=== PATIENT | female | born 1985 | race Caucasian/White ===

== ENCOUNTER 2020-10-23 02:18 | Emergency (ER) | payer OTHER, SELFPAY ==
[2020-10-23 02:28] VITALS: PULSE 79; RESP 16; TEMP 36.6; O2SAT 100; BMI 27.5
[2020-10-23 03:08] LABS: MANUAL DIFF FLAG NO
--- NOTE | 2020-10-23 03:23 | ED_ITS ---
HPI - Abdominal Pain General Chief Complaint: Abdominal Pain Stated Complaint: vaginal bleeding Time Seen by Provider: 10/23/20 03:18 History of Present Illness HPI narrative: Patient is a 35-year-old female presented with having lower abdominal cramping. Breakthrough bleeding. Patient's last menstrual period was middle of September. complaining of increased bleeding tonight. With 1 clot noted. Patient had some dizziness after bleeding episode. Never had syncope. No chest pain or shortness breath no coughing or congestion or upper respiratory symptoms. No flank pain. Patient from home. She is sexually active. One partner. No vaginal discharge otherwise. Related Data Allergies Allergy/AdvReac Type Severity Reaction Status Date / Time drospirenone [From JESSE (28)] Allergy Unknown UNKNOWN Unverified 08/04/20 18:55 ethinyl estradiol Allergy Unknown UNKNOWN Unverified 08/04/20 18:55 [From JESSE (28)] penicillin V Allergy Unknown Verified 04/09/17 00:00 Penicillins [PENICILLINS] Allergy Unknown HIVES Unverified 08/04/20 18:55 Pt states no known allergy to Allergy Unknown Uncoded 04/09/17 00:00 Review of Systems Review of Systems Constitutional: No Weight loss, No Fever, No Chills, No Night Sweats, No Fatigue, No Malaise ENT/Mouth: No Hearing loss, No Ear Pain, No Nasal Congestion, No Sinus Pain, No Hoarseness, No sore throat, No Rhinorrhea, No Swallowing Difficulty Eyes: No Eye Pain, No Swelling, No Redness, No Foreign Body, No Discharge, No Vision Changes Cardiovascular: No Chest Pain, No SOB, No Dyspnea on Exertion, No Orthopnea, No Edema, No Palpitations Respiratory: No Cough, No Sputum, No Wheezing, No Smoke Exposure, No Dyspnea Gastrointestinal: No Nausea, No Vomiting, No Diarrhea, No Constipation, No abdominal Pain, No Hematochezia, No Melena Genitourinary: positive irregular bleeding, No Dysuria, No Urinary Frequency, No Hematuria, No Urinary Incontinence, No Urgency, No Flank Pain, No Urinary Flow Changes, No Hesitancy Musculoskeletal: No joint pain, No Myalgias, No Joint Swelling Skin: No Skin Lesions, No rash Neuro: No Weakness, No Numbness, No Paresthesias, No Loss of Consciousness, No Dizziness, No Headache Psych: No Anxiety/Panic, No Depression, No SI/HI/AH/VH, No Social Issues, Heme/Lymph: No Bruising, No Bleeding,No Lymphadenopathy Endocrine: No Polyuria, No Polydipsia, No Temperature Intolerance Physical Exam Vital Signs: Vital Signs: Last Vital Signs Temp 97.8 F 10/23/20 02:28 Pulse 79 10/23/20 02:28 Resp 16 10/23/20 02:28 Pulse Ox 100 10/23/20 02:28 Body Mass Index 27.5 Appearance: Alert. Oriented X3. No acute distress. Eyes: Pupils equal, round and reactive to light. ENT: Pharynx normal. Neck: Normal inspection. Neck supple. No lymph nodes noted. No crepitus CVS: Normal heart rate and rhythm. Pulses normal. Normal S1 and S2 Respiratory: No respiratory distress. Breath sounds normal. No Wheezing. No rales Abdomen: Soft and nontender. No rigidity. No distention. good BS x4 Skin: Skin warm and dry. Normal skin color. Normal skin turgor. Extremities: No lower extremity edema. Neurovascular intact to all extremities. No Lacerations. No Rash Neuro: Oriented X 3. No motor deficit. No sensory deficit. Moving all exte rmities. No slurred speech MDM - Abdominal Pain MDM Narrative Medical decision making narrative: Patient's test is negative unlikely tap ectopic. Positive vaginal bleeding. Will need follow-up on an outpatient basis. Patient is not anemic. Hemoglobin is baseline. Will discharge patient home. Medical Records Attestation: I reviewed the patient's medical records. Lab Data Attestation: I reviewed the patient's lab results. Result diagrams: 10/23/20 02:58 10/23/20 02:58 Labs: Lab Results 10/23/20 10/23/20 10/23/20 Range/Units 02:58 02:58 02:58 WBC 6.2 (4.8-10.8) X10*3/uL RBC 4.06 L (4.20-5.50) X10*6/uL Hgb 13.1 (12.0-16.0) g/dl Hct 39.0 (37-47) % MCV 96.1 (80-98) fL MCH 32.3 (27.0-33.0) pg MCHC 33.6 (31.0-35.0) g/dl RDW 12.6 (11.0-16.0) % Plt Count 226 (160-400) X10*3/uL MPV 11.1 (9.4-12.3) fL Immature Gran % (Auto) 0.2 (0.0-0.4) % Neut % (Auto) 43.5 L (45-73) % Lymph % (Auto) 43.8 H (20-40) % [place] % (Auto) 9.1 (2-11) % Eos % (Auto) 2.8 (0-4) % Baso % (Auto) 0.6 (0-2) % Lymph # (Auto) 2.7 (1.2-4.9) X10*3/uL [place] # (Auto) 0.6 (0.1-1.2) X10*3/uL Eos # (Auto) 0.2 (0.0-0.4) X10*3/uL Baso # (Auto) 0.0 (0.0-0.2) X10*3/uL Abs Immat Gran (auto) 0.01 (0.00-0.03) X10*3/uL Absolute Neuts (auto) 2.7 (2.0-8.3) X10*3/uL Absolute Nucleated RBC 0.000 (0.0-0.012) X10*3/uL Nucleated RBC % (auto) 0.0 (0.0-0.2) /100WBC Sodium 139 (135-145) mmol/L Potassium 3.6 (3.3-5.1) mmol/l Chloride 105 (96-108) mmol/L Carbon Dioxide 24 (22-29) mmol/L Anion Gap 14 (12-20) BUN 10 (9-16) mg/dL Creatinine 0.88 (0.5-1.4) mg/dL Estim Creat Clear Calc 78.3 Estimated GFR > 60 Random Glucose 86 (60-115) mg/dL Calcium 8.4 (8.4-10.2) mg/dL Urine Color Urine Appearance Urine pH (5.0-8.0) Ur Specific [place] (1.005-1.025) Urine Protein (NEG-TRACE) MG/DL Urine Glucose (UA) (NEG) MG/DL Urine Ketones (NEG) MG/DL Urine Blood (NEG) Urine Nitrite (NEG) Ur Leukocyte Esterase (NEG) Urine RBC (0) /HPF Urine WBC (0-4) /HPF Ur Squamous Epith Cells /LPF Urine Bacteria /LPF Urine Mucus /LPF Urine Test NEGATIVE (NEGATIVE) 10/23/20 Range/Units 02:58 WBC (4.8-10.8) X10*3/uL RBC (4.20-5.50) X10*6/uL Hgb (12.0-16.0) g/dl Hct (37-47) % MCV (80-98) fL MCH (27.0-33.0) pg MCHC (31.0-35.0) g/dl RDW (11.0-16.0) % Plt Count (160-400) X10*3/uL MPV (9.4-12.3) fL Immature Gran % (Auto) (0.0-0.4) % Neut % (Auto) (45-73) % Lymph % (Auto) (20-40) % [place] % (Auto) (2-11) % Eos % (Auto) (0-4) % Baso % (Auto) (0-2) % Lymph # (Auto) (1.2-4.9) X10*3/uL [place] # (Auto) (0.1-1.2) X10*3/uL Eos # (Auto) (0.0-0.4) X10*3/uL Baso # (Auto) (0.0-0.2) X10*3/uL Abs Immat Gran (auto) (0.00-0.03) X10*3/uL Absolute Neuts (auto) (2.0-8.3) X10*3/uL Absolute Nucleated RBC (0.0-0.012) X10*3/uL Nucleated RBC % (auto) (0.0-0.2) /100WBC Sodium (135-145) mmol/L Potassium (3.3-5.1) mmol/l Chloride (96-108) mmol/L Carbon Dioxide (22-29) mmol/L Anion Gap (12-20) BUN (9-16) mg/dL Creatinine (0.5-1.4) mg/dL Estim Creat Clear Calc Estimated GFR Random Glucose (60-115) mg/dL Calcium (8.4-10.2) mg/dL Urine Color DARK YELLOW Urine Appearance CLEAR Urine pH 5.5 (5.0-8.0) Ur Specific [place] >= 1.030 H (1.005-1.025) Urine Protein 2+ H (NEG-TRACE) MG/DL Urine Glucose (UA) NEG (NEG) MG/DL Urine Ketones 5 (NEG) MG/DL Urine Blood 3+ H (NEG) Urine Nitrite NEG (NEG) Ur Leukocyte Esterase NEG (NEG) Urine RBC TNTC H (0) /HPF Urine WBC 0 (0-4) /HPF Ur Squamous Epith Cells TRACE /LPF Urine Bacteria TRACE /LPF Urine Mucus 1+ /LPF Urine Test (NEGATIVE) Discharge Plan Discharge Clinical Impression: Abnormal vaginal bleeding Patient Disposition: Home, Self-Care Instructions: Dysfunctional Uterine Bleeding (ED) Referrals: Physician,Unknown [Primary Care Provider] - 2 days ( Please follow-up with your OBGYN in 1-2 days.) [facility] Past Medical History [facility] Narrative: history of migraine Social History Social History Advance Directives: No
[2020-10-23 03:29] LABS: Basophils Percent Auto 0.6 % (0-2); Eosinophils Absolute Auto 0.2 X10*3/uL (0.0-0.4); Eosinophils Percent Auto 2.8 % (0-4); Hemoglobin 13.1 g/dl (12.0-16.0); Imm Gran Abs Auto 0.01 X10*3/uL (0.00-0.03); Imm Gran Pct Auto 0.2 % (0.0-0.4); Lymphocytes Absolute Auto 2.7 X10*3/uL (1.2-4.9); Lymphocytes Percent Auto 43.8 % (20-40); Mean Corpuscular HGB Conc 33.6 g/dl (31.0-35.0); Mean Corpuscular Hemoglobin 32.3 pg (27.0-33.0); Mean Corpuscular Volume 96.1 fL (80-98); Mean Platelet Volume 11.1 fL (9.4-12.3); Monocytes Absolute Auto 0.6 X10*3/uL (0.1-1.2); Monocytes Percent Auto 9.1 % (2-11); Neutrophils Absolute Auto 2.7 X10*3/uL (2.0-8.3); Neutrophils Percent Auto 43.5 % (45-73); Platelet Count 226 X10*3/uL (160-400); Red Blood Count 4.06 X10*6/uL (4.20-5.50); Red Cell Distribution Width 12.6 % (11.0-16.0); White Blood Count 6.2 X10*3/uL (4.8-10.8)
[2020-10-23] MEDS: 0.9 % Sodium Chloride 1,000 ML 999 ML IVCONT (03:30)
[2020-10-23 03:33] LABS: Anion Gap 14 (12-20); Blood Urea Nitrogen 10 mg/dL (9-16); Calcium 8.4 mg/dL (8.4-10.2); Carbon Dioxide 24 mmol/L (22-29); Chloride 105 mmol/L (96-108); Creatinine Clr Calc Pharmacy 78.3; Estimated Glomerular Filt Rate > 60; Glucose Random 86 mg/dL (60-115); Potassium 3.6 mmol/l (3.3-5.1); Sodium 139 mmol/L (135-145)
[2020-10-23 03:57] LABS: Glucose Urine UA NEG (NEG); PH 5.5 (5.0-8.0); Specific Gravity - Urine >= 1.030 (1.005-1.025); Urine Blood 3+ (NEG); Urine Ketones 5 MG/DL (NEG); Urine Protein 2+ MG/DL (NEG-TRACE)
[2020-10-23 04:00] VITALS: BP 114/67; PULSE 75; RESP 16; O2SAT 98
[2020-10-23 04:01] LABS: Appearance Urine CLEAR; Color Urine DARK YELLOW
[2020-10-23 04:02] LABS: Leukocyte Esterase Urine NEG (NEG); Nitrite Urine NEG (NEG)
[2020-10-23 04:10] LABS: Bacteria Urine TRACE /LPF; Mucus Urine 1+ /LPF; RBC Urine TNTC /HPF (0); Squamous Epithelial Cell Urine TRACE /LPF; WBC Urine 0 /HPF (0-4)
[2020-10-23 04:11] LABS: UPreg QC Valid YES; Urine Pregnancy NEGATIVE (NEGATIVE)
[2020-10-23] MEDS: Ketorolac Tromethamine 15 MG/ML VIAL IV (04:18)
[2020-10-23 04:30] VITALS: BP 118/72; PULSE 74; RESP 16; O2SAT 98
== END 2020-10-23 04:48 | disposition home or self-care (01) ==
PROVIDERS: Emergency Provider Emergency Medicine Emergency Medical Services
DX: N93.8 Other specified abnormal uterine and vaginal bleeding (principal)
CPT/HCPCS: 36415; 80048; 81001; 81003; 81025; 85025; 96361; 96374; 99283; 99284; J1885

== ENCOUNTER 2020-12-03 16:10 | Emergency (ER) | payer OTHER, SELFPAY ==
[2020-12-03 17:16] VITALS: BP 101/70; PULSE 76; RESP 18; TEMP 37; O2SAT 96; BMI 28.7
[2020-12-03 18:00] VITALS: BP 104/68; PULSE 60; RESP 16; TEMP 37; O2SAT 100
--- NOTE | 2020-12-03 18:36 | PC.NURSE ---
patient a&ox3, denies pain/discomfort, patient speaking in full sentences, no neuro deficites noted, pt currently talking on cell phone, vss, will continue to monitor.
--- NOTE | 2020-12-03 18:41 | ED.NEUROSD ---
HPI - Neuro Symptoms/Deficit General Chief Complaint: Neuro Symptoms/Deficit Stated Complaint: left sided face numbness,neck pain Time Seen by Provider: 12/03/20 18:14 Source: patient Mode of arrival: ambulatory Limitations: no limitations History of Present Illness HPI Narrative: Patient presents to ED for left-sided facial numbness, migraine, and slight vertigo. Patient denies any weakness of extremities, paralysis, facial droop, slurred speech, or loss of vision. Patient states history of migraine but is not on any cocktail except monthly injections of a migraine exacerbation. Related Data Previous Rx's Medication Instructions Recorded [id number]-[id number] 1 cap PO Q6H PRN 4 Days #18 cap 12/03/20 [Fioricet] naproxen 500 mg PO BID PRN #20 tab 12/03/20 Allergies Allergy/AdvReac Type Severity Reaction Status Date / Time drospirenone [From JESSE (28)] Allergy Unknown UNKNOWN Verified 12/03/20 17:15 ethinyl estradiol Allergy Unknown UNKNOWN Verified 12/03/20 17:15 [From JESSE (28)] Penicillins [PENICILLINS] Allergy Unknown HIVES Verified 12/03/20 17:15 metronidazole Allergy Chills Verified 12/03/20 17:15 Review of Systems Review of Systems: Yes all other systems are reviewed and are negative Constitutional: Constitutional: Reports as per HPI, Reports no additional constitutional complaints and Reports headache(s) Eyes: Eyes: Reports as per HPI and Reports no additional eye complaints ENT: Reports system reviewed and no additional complaints, except as documented, Reports as per HPI, Reports dizziness (History of vertigo) and Reports headache(s) Cardiovascular: Cardiovascular: Reports as per HPI and Reports no additional cardiovascular complaints Respiratory: Respiratory: Reports as per HPI and Reports no additional respiratory complaints Gastrointestinal: Gastrointestinal: Reports as per HPI and Reports no additional gastrointestinal complaints Genitourinary: Genitourinary: Reports no additional female genitourinary complaints and Reports as per HPI Musculoskeletal: Musculoskeletal: Reports no additional musculoskeletal complaints and Reports as per HPI Neurologic: Reports system reviewed and no additional complaints, except as documented, Reports as per HPI, Reports dizziness (History of vertigo) and Reports headache(s) Comments: Left-sided facial numbness Psychiatric: Psychiatric: Reports no additional psychiatric complaints and Reports as per HPI PMFSH Past Medical History Medical History Migraines Vertigo Social History Social History Alcohol intake: never Smoking Status: Never smoker Use of substances other than those prescribed or required for medical reasons: Yes Substance Use Type: Marijuana Substance Use Frequency: Occasionally Advance Directives: No Advance Directives Information Provided: Yes Physical Exam Vital Signs: Vital Signs: Last Vital Signs Temp 98.3 F 12/03/20 19:51 Pulse 68 12/03/20 19:51 Resp 17 12/03/20 19:51 BP 108/68 12/03/20 19:51 Pulse Ox 100 12/03/20 19:51 Body Mass Index 28.7 Const: General: cooperative, healthy appearing, comfortable, no acute distress, well developed, alert and awake Orientation/consciousness: patient oriented x3 HENMT: Head: Yes normal to inspection, Yes No palpable skull fracture present, Yes normocephalic, Yes atraumatic, No abrasion, No Rincon's sign, No contusion, No cranial bruits, No hematoma, No laceration, No occipital foramen tenderness, No palpable skull fracture, No raccoon eyes, No scalp lesion, No scalp tenderness, No Temporal artery tenderness present and No periorbital ecchymosis Eyes: General: appearance normal, both eyes and all related structures Neck: Neck: Yes normal visual inspection, Yes full ROM, Yes no lymphadenopathy, Yes no meningeal signs, Yes trachea midline, Yes supple and No tender Chest: Chest palpation & inspection: normal inspection of the chest and normal palpation of entire chest wall Breast/axilla inspection: normal inspection of the breasts Resp: Effort & Inspection: normal respiratory effort and able to speak in complete sentences Auscultation: clear to auscultation bilaterally Cardio: Jugular venous distension: no JVD Heart sounds: S1 normal heart sound present and S2 normal heart sound present GI: Inspection: Yes normal to inspection and No abdominal wall ecchymosis Palpation (GI): Soft to palpation, not firm, nontender, no guarding and not rigid : General: No CVA tenderness and Yes no CVA tenderness Back/Spine/Pelvis: Back: no CVA tenderness, No CVA tenderness and No back tenderness Skin: General skin exam: no rashes or lesions noted and elasticity normal Neuro: Other: Negative facial droop. Negative pronator drift. Negative slurred speech. All extremities motor strength equal and 5+. Normal gait. Negative Romberg. Nfclff-sw-tjzf and rapid hand movements intact. negative neuro deficit. General: patient oriented x3, gait normal, no meningeal signs and CN's II-XI intact bilaterally Cranial nerves: Yes CN's II-XII intact bilaterally Extrem: General: Yes normal to inspection and Yes full ROM Psych: Appearance: grossly normal, well kempt and not disheveled Course Course Course Narrative: Most likely patient is having complicated migraine exacerbation. Due to patient stating having headache for a week was sent for head CT scan to rule out abnormal mass or bleed although very unlikely. Not suspecting stroke. CT scan negative will order Toradol. Presently Reglan, Fioricet, normal saline ordered. Patient also have labs EKG. Magnesium will be sent. Reevaluation(s) Reevaluation #1: Head CT came back negative for stroke. Troponin is negative after having symptoms for 1 weeks. EKG is normal. Electrolytes are normal. Patient feels better after given migraine cocktail. Most likely patient has migraine exacerbation. Negative for any neuro deficits. Not suspecting cardiac etiology. UTI negative for infection. Time: 21:29 MDM - Neuro Symptoms/Deficit MDM Narrative Medical decision making narrative: Migraine exacerbation. Lab Data Result diagrams: 12/03/20 19:34 12/03/20 19:34 Labs: Lab Results 12/03/20 12/03/20 12/03/20 Range/Units 19:34 19:34 19:34 WBC 5.3 (4.8-10.8) X10*3/uL RBC 4.08 L (4.20-5.50) X10*6/uL Hgb 13.0 (12.0-16.0) g/dl Hct 39.1 (37-47) % MCV 95.8 (80-98) fL MCH 31.9 (27.0-33.0) pg MCHC 33.2 (31.0-35.0) g/dl RDW 12.5 (11.0-16.0) % Plt Count 222 (160-400) X10*3/uL MPV 10.2 (9.4-12.3) fL Immature Gran % (Auto) 0.2 (0.0-0.4) % Neut % (Auto) 43.8 L (45-73) % Lymph % (Auto) 45.3 H (20-40) % [place] % (Auto) 7.6 (2-11) % Eos % (Auto) 2.5 (0-4) % Baso % (Auto) 0.6 (0-2) % Lymph # (Auto) 2.4 (1.2-4.9) X10*3/uL [place] # (Auto) 0.4 (0.1-1.2) X10*3/uL Eos # (Auto) 0.1 (0.0-0.4) X10*3/uL Baso # (Auto) 0.0 (0.0-0.2) X10*3/uL Abs Immat Gran (auto) 0.01 (0.00-0.03) X10*3/uL Absolute Neuts (auto) 2.3 (2.0-8.3) X10*3/uL Absolute Nucleated RBC 0.000 (0.0-0.012) X10*3/uL Nucleated RBC % (auto) 0.0 (0.0-0.2) /100WBC PT 12.8 (10.8-13.0) SEC INR 1.1 (0.9-1.1) APTT 36.2 (24.1-38.0) SEC Sodium 139 (135-145) mmol/L Potassium 4.0 (3.3-5.1) mmol/l Chloride 105 (96-108) mmol/L Carbon Dioxide 25 (22-29) mmol/L Anion Gap 13 (12-20) BUN 12 (9-16) mg/dL Creatinine 0.91 (0.5-1.4) mg/dL Estim Creat Clear Calc 77.4 Estimated GFR > 60 Random Glucose 82 (60-115) mg/dL Calcium 8.6 (8.4-10.2) mg/dL Magnesium 2.1 (1.6-2.6) mg/dL Total Bilirubin 0.3 (0.0-1.0) mg/dL AST 12 (5-31) U/L ALT 9 (0-31) U/L Alkaline Phosphatase 33 L (39-117) U/L Troponin I High Sens (<3.5-17.0) ng/L Total Protein 6.9 (6.5-8.0) g/dL Albumin 4.2 (3.5-5.0) g/dL Urine Color Urine Appearance Urine pH (5.0-8.0) Ur Specific [place] (1.005-1.025) Urine Protein (NEG-TRACE) MG/DL Urine Glucose (UA) (NEG) MG/DL Urine Ketones (NEG) MG/DL Urine Blood (NEG) Urine Nitrite (NEG) Ur Leukocyte Esterase (NEG) Urine RBC (0) /HPF Urine WBC (0-4) /HPF Ur Squamous Epith Cells /LPF Urine Bacteria /LPF Urine Test (NEGATIVE) 12/03/20 12/03/20 Range/Units 19:35 19:35 WBC (4.8-10.8) X10*3/uL RBC (4.20-5.50) X10*6/uL Hgb (12.0-16.0) g/dl Hct (37-47) % MCV (80-98) fL MCH (27.0-33.0) pg MCHC (31.0-35.0) g/dl RDW (11.0-16.0) % Plt Count (160-400) X10*3/uL MPV (9.4-12.3) fL Immature Gran % (Auto) (0.0-0.4) % Neut % (Auto) (45-73) % Lymph % (Auto) (20-40) % [place] % (Auto) (2-11) % Eos % (Auto) (0-4) % Baso % (Auto) (0-2) % Lymph # (Auto) (1.2-4.9) X10*3/uL [place] # (Auto) (0.1-1.2) X10*3/uL Eos # (Auto) (0.0-0.4) X10*3/uL Baso # (Auto) (0.0-0.2) X10*3/uL Abs Immat Gran (auto) (0.00-0.03) X10*3/uL Absolute Neuts (auto) (2.0-8.3) X10*3/uL Absolute Nucleated RBC (0.0-0.012) X10*3/uL Nucleated RBC % (auto) (0.0-0.2) /100WBC PT (10.8-13.0) SEC INR (0.9-1.1) APTT (24.1-38.0) SEC Sodium (135-145) mmol/L Potassium (3.3-5.1) mmol/l Chloride (96-108) mmol/L Carbon Dioxide (22-29) mmol/L Anion Gap (12-20) BUN (9-16) mg/dL Creatinine (0.5-1.4) mg/dL Estim Creat Clear Calc Estimated GFR Random Glucose (60-115) mg/dL Calcium (8.4-10.2) mg/dL Magnesium (1.6-2.6) mg/dL Total Bilirubin (0.0-1.0) mg/dL AST (5-31) U/L ALT (0-31) U/L Alkaline Phosphatase (39-117) U/L Troponin I High Sens < 3.5 (<3.5-17.0) ng/L Total Protein (6.5-8.0) g/dL Albumin (3.5-5.0) g/dL Urine Color YELLOW Urine Appearance CLEAR Urine pH 7.0 (5.0-8.0) Ur Specific [place] 1.015 (1.005-1.025) Urine Protein NEG (NEG-TRACE) MG/DL Urine Glucose (UA) 100 H (NEG) MG/DL Urine Ketones NEG (NEG) MG/DL Urine Blood 1+ H (NEG) Urine Nitrite NEG (NEG) Ur Leukocyte Esterase NEG (NEG) Urine RBC 0-2 (0) /HPF Urine WBC 0-2 (0-4) /HPF Ur Squamous Epith Cells TRACE /LPF Urine Bacteria NONE /LPF Urine Test NEGATIVE (NEGATIVE) ECG Data Interpretation: Sinus bradycardia. Ventricular rate 52. WV interval 150 QRS 74. QTC 394. Negative STEMI Discharge Plan Discharge Clinical Impression: Migraine Patient Disposition: Home, Self-Care Instructions: Migraine Headache (ED) Additional Instructions: Return to the ED immediately no slurred speech, worsening headache, loss of vision, paralysis of extremities, weakness, chest pain, or shortness of breath. Please follow-up with the PCP Prescriptions: New naproxen 500 mg tablet 500 mg PO BID PRN (Reason: pain) Qty: 20 RF: 0 icwqkcyskz-gpedwiqqhhqvl-oboq [Fioricet] 50-300-40 mg capsule 1 cap PO Q6H PRN (Reason: migraine headache) 4 Days Qty: 18 RF: 0 Interventions: ED Discharge Assessment Last Done: 12/03/20 21:59 Discharge Date/Time: 12/03/20 22:01 Print Language: Micronesian
--- NOTE | 2020-12-03 19:03 | CT_ITS ---
EXAMINATION: CT HEAD WITHOUT CONTRAST CLINICAL INFORMATION: Left-sided headache with facial numbness COMPARISON: Report from MRI 06/20/2015 TECHNIQUE: Contiguous axial imaging was performed from the skull base to vertex without intravenous administration of contrast. This CT examination was performed using dose optimization techniques as appropriate, variously including the following: *Automated exposure control *Adjustment of mA and/or kV according to patient size (this includes techniques or standardized protocols for targeted exams where dose is matched to indication/reason for exam; i.e. extremities or head) *Use of iterative reconstruction technique DLP: 696 mGy-cm FINDINGS: There is no evidence of acute intracranial hemorrhage or territorial infarction. No abnormal mass effect or midline shift is seen. Mendes to white matter differentiation is well preserved. No extra-axial fluid collections are identified. The ventricles are normal in size. There is no abnormal attenuation within the brain parenchyma. The osseous structures and soft tissues are normal. The mastoid air cells and visualized portions of the paranasal sinuses are well aerated. CT/CT head/brain wo con IMPRESSION: No acute intracranial pathology.
--- NOTE | 2020-12-03 19:11 | ECG_ITS ---
Test Reason : NUMBNESS Blood Pressure : / mmHG Vent. Rate : 052 BPM Atrial Rate : 052 BPM P-R Int : 150 ms QRS Dur : 074 ms QT Int : 424 ms P-R-T Axes : 067 008 024 degrees QTc Int : 394 ms Sinus bradycardia Possible Left atrial enlargement Borderline ECG No previous ECGs available Referred By: Harshil Tellez Electronically Signed By:TAYLOR JUSTICE MD
[2020-12-03 19:42] LABS: MANUAL DIFF FLAG NO
[2020-12-03 19:45] LABS: Basophils Percent Auto 0.6 % (0-2); Eosinophils Absolute Auto 0.1 X10*3/uL (0.0-0.4); Eosinophils Percent Auto 2.5 % (0-4); Hematocrit 39.1 % (37-47); Imm Gran Abs Auto 0.01 X10*3/uL (0.00-0.03); Imm Gran Pct Auto 0.2 % (0.0-0.4); Lymphocytes Absolute Auto 2.4 X10*3/uL (1.2-4.9); Lymphocytes Percent Auto 45.3 % (20-40); Mean Corpuscular HGB Conc 33.2 g/dl (31.0-35.0); Mean Corpuscular Hemoglobin 31.9 pg (27.0-33.0); Mean Corpuscular Volume 95.8 fL (80-98); Mean Platelet Volume 10.2 fL (9.4-12.3); Monocytes Absolute Auto 0.4 X10*3/uL (0.1-1.2); Monocytes Percent Auto 7.6 % (2-11); Neutrophils Absolute Auto 2.3 X10*3/uL (2.0-8.3); Neutrophils Percent Auto 43.8 % (45-73); Platelet Count 222 X10*3/uL (160-400); Red Blood Count 4.08 X10*6/uL (4.20-5.50); Red Cell Distribution Width 12.5 % (11.0-16.0); White Blood Count 5.3 X10*3/uL (4.8-10.8)
[2020-12-03 19:48] LABS: Glucose Urine UA 100 MG/DL (NEG); Leukocyte Esterase Urine NEG (NEG); Nitrite Urine NEG (NEG); Specific Gravity - Urine 1.015 (1.005-1.025); Urine Blood 1+ (NEG); Urine Ketones NEG (NEG); Urine Protein NEG (NEG-TRACE)
[2020-12-03 19:51] VITALS: BP 108/68; PULSE 68; RESP 17; TEMP 36.8; O2SAT 100
--- NOTE | 2020-12-03 19:52 | PC.NURSE ---
patient a&ox3, iv inserted, labs drawn, urine obtained, ekg performed, pt ct scan performed, pt to be medicated per order, vss, will continue to monitor.
[2020-12-03 19:53] LABS: Appearance Urine CLEAR; Color Urine YELLOW
[2020-12-03 19:54] LABS: UPreg QC Valid YES; Urine Pregnancy NEGATIVE (NEGATIVE)
[2020-12-03 19:56] LABS: INTERNATIONAL NORM RATIO 1.1 (0.9-1.1); Prothrombin Time 12.8 SEC (10.8-13.0)
[2020-12-03 19:58] LABS: Partial Thromboplastin Time 36.2 SEC (24.1-38.0)
[2020-12-03 20:02] LABS: RBC Urine 0-2 /HPF (0); Squamous Epithelial Cell Urine TRACE /LPF; WBC Urine 0-2 /HPF (0-4)
[2020-12-03] MEDS: 0.9 % Sodium Chloride 1,000 ML 999 ML IV (20:05)
[2020-12-03] MEDS: Metoclopramide HCl 10 MG/2 ML VIAL IVPUSH (20:17)
[2020-12-03] MEDS: Butalb/Acetamin/Caff 50/325/40 TABLET 1 TAB PO (20:17)
[2020-12-03 20:19] LABS: Alanine Aminotransferase 9 U/L (0-31); Albumin Level 4.2 g/dL (3.5-5.0); Alkaline Phosphatase 33 U/L (39-117); Anion Gap 13 (12-20); Aspartate Amino Transferase 12 U/L (5-31); Bilirubin Total 0.3 mg/dL (0.0-1.0); Blood Urea Nitrogen 12 mg/dL (9-16); Calcium 8.6 mg/dL (8.4-10.2); Carbon Dioxide 25 mmol/L (22-29); Chloride 105 mmol/L (96-108); Creatinine Clr Calc Pharmacy 77.4; Estimated Glomerular Filt Rate > 60; Glucose Random 82 mg/dL (60-115); Magnesium 2.1 mg/dL (1.6-2.6); Sodium 139 mmol/L (135-145); Total Protein 6.9 g/dL (6.5-8.0)
[2020-12-03 20:24] LABS: Troponin-I High Sensitivity < 3.5 ng/L (<3.5-17.0)
[2020-12-03] MEDS: Ketorolac Tromethamine 30 MG/ML VIAL IVPUSH (20:55)
[2020-12-03] MEDS: dexAMETHasone sod phosphate 4 MG/ML VIAL 6 MG IVPUSH (20:55)
--- NOTE | 2020-12-03 20:55 | PC.NURSE ---
patient medicated per order
== END 2020-12-03 22:01 | disposition home or self-care (01) ==
PROVIDERS: Physician Assistant; Emergency Provider Emergency Medicine
DX: G43.909 Migraine, unspecified, not intractable, without status migrainosus (principal); M54.2 Cervicalgia; F12.90 Cannabis use, unspecified, uncomplicated; Z79.899 Other long term (current) drug therapy
CPT/HCPCS: 36415; 70450; 80053; 81001; 81025; 83735; 84484; 85025; 85610; 85730; 93005; 96361; 96374; 96375; 99284; J1100; J1885; J2765

== ENCOUNTER 2021-01-04 15:59 | Emergency (ER) | payer OTHER, SELFPAY ==
[2021-01-04 16:04] VITALS: BP 117/65; PULSE 65; RESP 16; TEMP 36.6; O2SAT 100
[2021-01-04 19:54] VITALS: BP 115/47; PULSE 59; RESP 18; TEMP 36.9; O2SAT 98; BMI 26.9
[2021-01-04 23:34] VITALS: BP 112/57; PULSE 62; RESP 16; O2SAT 98
--- NOTE | 2021-01-05 01:57 | ED.GENADULT ---
HPI - General Adult General Chief complaint: Allergic Reaction Stated complaint: ?allergic reaction Time Seen by Provider: 01/05/21 01:32 Source: patient Mode of arrival: ambulatory Limitations: no limitations History of Present Illness HPI narrative: 35-year-old female who presents emergency department for evaluation of possible allergic reaction. The patient has a history of moderate to severe vaginal bleeding with periods that last 8-9 days. The patient states she has been on multiple different control pills without controlling the symptoms. She was started on norethindrone 3 or 4 days prior. She states she has taken approximately 3 doses. She states that yesterday morning she woke up with swollen eyes, facial swelling, tightness in her throat and itchiness on her anterior chest wall. She states that the symptoms persisted so she came to the emergency department for evaluation. She denied difficulty swallowing, lightheadedness, dizziness, nausea, vomiting, abdominal pain, shortness of breath or dyspnea on exertion. The patient does have allergies to penicillin which caused hives, JESSE contro pills l which caused pancreatitis and metronidazole was caused shaking chills. Related Data Previous Rx's Medication Instructions Recorded xmlvppocno-gkkqgfodlkfpn-oebb 1 cap PO Q6H PRN 4 Days #18 cap 12/03/20 [Fioricet] naproxen 500 mg PO BID PRN #20 tab 12/03/20 prednisone 40 mg PO DAILY 5 Days #10 tab 01/05/21 Allergies Allergy/AdvReac Type Severity Reaction Status Date / Time drospirenone [From JESSE (28)] Allergy Unknown UNKNOWN Verified 12/03/20 17:15 ethinyl estradiol Allergy Unknown UNKNOWN Verified 12/03/20 17:15 [From JESSE (28)] Penicillins [PENICILLINS] Allergy Unknown HIVES Verified 12/03/20 17:15 metronidazole Allergy Chills Verified 12/03/20 17:15 Review of Systems Review of Systems: Yes all other systems are reviewed and are negative Neurologic: Reports Abnormal speech present [facility] Past Medical History [facility] Narrative: The patient has a history of depression, anxiety, IBS and migraines. 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 She denies tobacco and alcohol use. She states that she uses marijuana to control her anxiety and she smokes marijuana daily. She denies other drug use. Medical History Migraines Vertigo Social History Social History Alcohol intake: never Smoking Status: Never smoker Substance Use Type: Marijuana Advance Directives: No Physical Exam Vital Signs: Vital Signs: Last Vital Signs Temp 98.5 F 01/04/21 19:54 Pulse 62 01/04/21 23:34 Resp 16 01/04/21 23:34 BP 112/57 L 01/04/21 23:34 Pulse Ox 98 01/04/21 23:34 Body Mass Index 26.9 Const: General: cooperative and healthy appearing Orientation/consciousness: oriented to person and oriented to place Limitations: no limitations HENMT: Head: Yes normal to inspection, Yes normocephalic and Yes atraumatic Ears: external ears normal General nose exam: Normal external nose present Face and sinus: Yes normal facial exam Mouth: Normal oral and palatal mucosa present Throat: Yes posterior oropharynx normal Eyes: Periorbital: periorbital findings normal Eyelids: Yes eyelids normal Conjunctivae: conjunctivae normal Sclerae: sclerae normal Corneas: corneas normal Pupils: Equal, round and reactive pupils present Direct Ophthalmoscopy: normal light reflex Neck: Neck: Yes full ROM, Yes no lymphadenopathy, Yes no meningeal signs, Yes trachea midline and Yes supple Chest: Chest palpation & inspection: normal inspection of the chest and normal palpation of entire chest wall Resp: Effort & Inspection: normal respiratory effort and able to speak in complete sentences Auscultation: clear to auscultation bilaterally Cardio: Rate: regular rate Rhythm: regular rhythm Heart sounds: S1 normal heart sound present, S2 normal heart sound present and no murmurs GI: Inspection: Yes normal to inspection Palpation (GI): Soft to palpation, nontender, no guarding, not rigid and No hepatosplenomegaly present : General: Yes no CVA tenderness Back/Spine/Pelvis: Back: no CVA tenderness Cervical Spine: normal cervical lordosis Thoracic/Lumbar Spine: thoracic and lumbar spine normal to inspection Skin: Lesions: no lesions Rashes: no rashes Wounds: no wounds Neuro: General: oriented to person, oriented to place and no meningeal signs Cranial nerves: Yes CN's II-XII intact bilaterally and Yes Equal, round and reactive pupils present Cognition (Neuro): normal cognition Speech: Abnormal speech present Motor exam (neuro): 5/5 motor strength present throughout Extrem: General: Yes normal to inspection and Yes full ROM Psych: Appearance: well kempt Mental Status: mental status grossly normal Speech and movement: Normal speech and movement present Affect: normal affect Attitude: cooperative Thought process: Normal thought process present Thought content: Normal thought content present Course Course Course Narrative: 35-year-old female who presents emergency department for evaluation of allergic reaction most likely secondary to he norethindrone which was started 3 or 4 days prior . Her examination was unremarkable. The patient was given a dose of prednisone 40 mg orally. She is given a prescription prednisone 40 mg once a day for 5 days. She was given a note not return to work tomorrow. I advised her to take Benadryl for itchiness but I told her this would make her sleepy and she cannot work or drive while taking this medication. She was given verbal and printed instructions discharged home. Discharge Plan Discharge Clinical Impression: Allergic reaction Qualifiers: Encounter type: initial encounter Qualified Code(s): T78.40XA - Allergy, unspecified, initial encounter Patient Disposition: Home, Self-Care Instructions: Allergies (ED) Additional Instructions: Take prednisone 20 mg pills, 2 pills once a day for 5 days. Take your next dose this evening (, 01/05/2021). Take Benadryl 25 mg pills, 1 or 2 pills every 4-6 hours as needed for itchiness or rash. This medication will make you sleepy. Do not work or drive while taking this medication. No work today, you can return to work tomorrow if you are feeling better. Follow-up with your doctor in 2 days. Please return to the emergency department if your symptoms get worse or if you develop any symptoms that are concerning to you. Prescriptions: New prednisone 20 mg tablet 40 mg PO DAILY 5 Days Qty: 10 RF: 0 No Action naproxen 500 mg tablet 500 mg PO BID PRN (Reason: pain) Qty: 20 RF: 0 [id number]-wrfekbhtzsinz-xbxk [Fioricet] 50-300-40 mg capsule 1 cap PO Q6H PRN (Reason: migraine headache) 4 Days Qty: 18 RF: 0 Stand Alone Forms: Work/School Release
[2021-01-05] MEDS: predniSONE 20 MG TABLET 40 MG PO (02:04)
== END 2021-01-05 02:22 | disposition home or self-care (01) ==
PROVIDERS: Emergency Provider Emergency Medicine Emergency Medical Services
DX: L29.9 Pruritus, unspecified (principal); T50.905A Adverse effect of unspecified drugs, medicaments and biological substances, initial encounter; X58.XXXA Exposure to other specified factors, initial encounter
CPT/HCPCS: 99283

== ENCOUNTER 2021-01-10 13:01 | Emergency (ER) | payer OTHER, SELFPAY ==
--- NOTE | ~2021-01-10 | CT_ITS ---
EXAMINATION: CT ABDOMEN AND PELVIS WITHOUT CONTRAST CLINICAL INFORMATION: Abdominal pain. Rectal bleed. Concern for colitis. COMPARISON: CT abdomen pelvis 01/25/2020 TECHNIQUE: Multidetector volumetric imaging was performed from the superior aspect of the liver through the pubic symphysis. Sagittal and coronal reformatted images were obtained on the technologist's workstation. This CT examination was performed using dose optimization techniques as appropriate, variously including the following: *Automated exposure control *Adjustment of mA and/or kV according to patient size (this includes techniques or standardized protocols for targeted exams where dose is matched to indication/reason for exam; i.e. extremities or head) *Use of iterative reconstruction technique DLP: 431 mGy-cm FINDINGS: LUNG BASES: The visualized lung bases are unremarkable. LIVER, GALLBLADDER, AND BILIARY TREE: Stable hepatic cysts in the left lobe of liver. No suspicious liver lesions. No intrahepatic bile duct dilatation. The gallbladder is unremarkable with no evidence of radiopaque gallstones, gallbladder wall thickening, or obvious pericholecystic inflammatory changes. PANCREAS: Unremarkable. SPLEEN: Unremarkable. ADRENAL GLANDS: Unremarkable. KIDNEYS AND URETERS: The kidneys are normal in size, shape, and attenuation. No hydronephrosis, hydroureter, or calculi seen. No perinephric stranding. BLADDER: Unremarkable. GASTROINTESTINAL TRACT: There is no acute abnormality of the bowel. There is no bowel wall thickening /edema. There is no bowel obstruction. There is a moderate to large volume of stool in the colon. There is a large collection of stool in the rectum. No bowel wall thickening to indicate stercoral colitis. The appendix is normal . The small bowel loops are unremarkable. The stomach is normal. There is no hiatal hernia. ABDOMINAL WALL: No significant hernia is appreciated. LYMPH NODES: Normal. VASCULAR: Unremarkable. PELVIC VISCERA: Uterus is anteverted. There is no edema in the endometrial canal. OSSEOUS STRUCTURES: Unremarkable. CT/CT abdomen pelvis wo con IMPRESSION: There is no acute abnormality the abdomen or the pelvis.
[2021-01-10 14:51] VITALS: BP 106/62; PULSE 67; RESP 16; TEMP 37.3; O2SAT 97; BMI 27.8
--- NOTE | 2021-01-10 18:16 | ECG_ITS ---
Test Reason : cp Blood Pressure : / mmHG Vent. Rate : 052 BPM Atrial Rate : 052 BPM P-R Int : 148 ms QRS Dur : 078 ms QT Int : 442 ms P-R-T Axes : 065 007 017 degrees QTc Int : 411 ms Sinus bradycardia with sinus arrhythmia Otherwise normal ECG When compared with ECG of 03-DEC-2020 19:50, No significant change was found Referred By: Generic ED Physician Electronically Signed By:TAYLOR JUSTICE MD
[2021-01-10 20:54] VITALS: BP 116/72; PULSE 78
--- NOTE | 2021-01-10 21:15 | ED_ITS ---
HPI - GI Bleed General Chief complaint: GI Bleed Stated complaint: rectal bleed Time Seen by Provider: 01/10/21 20:52 Source: patient Mode of arrival: ambulatory Limitations: no limitations History of Present Illness HPI Narrative: 35-year-old female presented with 1 day of diffuse abdominal pain, accompanied with bloody stool and nausea, describes the pain as cramps, intermittent, moderate (5/10), no radiation. 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 Related Data Previous Rx's Medication Instructions Recorded somrbrxqjj-ypbvlvneklxox-suhw 1 cap PO Q6H PRN 4 Days #18 cap 12/03/20 [Fioricet] naproxen 500 mg PO BID PRN #20 tab 12/03/20 prednisone 40 mg PO DAILY 5 Days #10 tab 01/05/21 Allergies Allergy/AdvReac Type Severity Reaction Status Date / Time drospirenone [From JESSE (28)] Allergy Unknown UNKNOWN Verified 01/10/21 14:51 ethinyl estradiol Allergy Unknown UNKNOWN Verified 01/10/21 14:51 [From JESSE (28)] Penicillins [PENICILLINS] Allergy Unknown HIVES Verified 01/10/21 14:51 metronidazole Allergy Chills Verified 01/10/21 14:51 Review of Systems Review of Systems: All other systems are reviewed and are negative Constitutional: Reports as per HPI and Reports no additional constitutional complaints Eyes: Reports as per HPI and Reports no additional eye complaints Reports system reviewed and no additional complaints, except as documented Cardiovascular: Reports as per HPI and Reports no additional cardiovascular comp laints Respiratory: Reports as per HPI and Reports no additional respiratory complaints Gastrointestinal: Reports as per HPI and Reports no additional gastrointestinal complaints Genitourinary: Reports no additional female genitourinary complaints Musculoskeletal: Reports no additional musculoskeletal complaints Skin/Breast: Reports system reviewed and no additional complaints, except as docu Psychiatric: Reports no additional psychiatric complaints Endocrine: Reports no additional endocrine complaints Hematologic/Lymphatic: Reports no additional hematologic/lymphatic complaints Allergic/Immunologic: Reports no additional allergic/immunologic complaints Reports system reviewed and no additional complaints, except as documented and Reports Abnormal speech present PMFSH Past Medical History Medical History Migraines Vertigo Social History Social History Alcohol intake: never Smoking Status: Never smoker Use of substances other than those prescribed or required for medical reasons: No Substance Use Type: Marijuana Advance Directives: No Advance Directives Information Provided: Yes Physical Exam Vital Signs: Vital Signs: Last Vital Signs Temp 98.6 F 01/10/21 21:23 Pulse 54 01/10/21 22:00 Resp 15 01/10/21 22:00 BP 104/64 01/10/21 22:00 Pulse Ox 98 01/10/21 22:00 Body Mass Index 27.8 Vital signs have been reviewed as appeared to be correct. Blood pressure normal. Heart rate normal. Respiration rate normal. Temperature normal. Oxygen saturation normal. Appearance: Alert. Oriented X3. No acute distress. Head: Normal external exam. Normocephalic. Atraumatic. No Rincon signs noted. No raccoon eyes noted Eyes: PERRLA. EOMI. Conjunctiva and sclera normal. Eyelids normal. ENT: TM's Normal. Pharynx normal. Uvula midline. Moist mucous membranes. No trismus noted. No drooling noted. No muffled voice noted. Neck: Normal inspection. Neck supple. FROM. No adenopathy. Thyroid Normal. No meningeal signs. No neck mass noted. CVS: Normal heart rate and rhythm. Heart sound normal. No murmurs noted. Pulses normal throughout. Respiratory: No respiratory distress. Painless inspiration. Breath sounds normal. No wheezes/rales/rhonchi noted. Chest nontender. No accessory muscle usage noted or decreased air movement noted. Abdomen: Soft, high lower abdominal tenderness, no rebound tenderness, no guarding.. Bowel sounds normal in all 4 quadrants. No distention noted. No organomegaly noted. No visible injury noted. 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 Guaiac is negative. Small external hemorrhoid at 12:00 o'clock no active bleeding, no thrombosis. Not tender. Back: No CVA tenderness. Full range of motion noted. Skin: Skin warm and dry. Normal skin color. Normal skin turgor. No rashes/lesions/lacerations noted. Extremities: No lower extremity edema. Extremities exhibit normal range of motion. Extremities nontender. Neuro: Oriented X 3. No motor deficit. No sensory deficit. Reflexes normal. Course Course Course Narrative: 35-year-old female otherwise healthy presented with abdominal pain, with rectal bleed. Patient has stable H&H, stool is negative for blood, rectal exam is unremarkable, CT abdomen pelvis is unremarkable. Patient hemodynamically stable including orthostatic vital signs. Patient is more comfortable with repeat abdominal exam showing no tenderness or rebound tenderness. Patient get referral to GI consult as an outpatient via her primary doctor. Patient is already have an appointment with OBGYN next week. MDM - GI Bleed Lab Data Attestation: I reviewed the patient's lab results. Result diagrams: 01/10/21 21:19 01/10/21 21:19 Labs: Lab Results 01/10/21 01/10/21 01/10/21 Range/Units 21:19 21:19 21:19 WBC 6.9 (4.8-10.8) X10*3/uL RBC 4.45 (4.20-5.50) X10*6/uL Hgb 14.4 (12.0-16.0) g/dl Hct 43.6 (37-47) % MCV 98.0 (80-98) fL MCH 32.4 (27.0-33.0) pg MCHC 33.0 (31.0-35.0) g/dl RDW 12.6 (11.0-16.0) % Plt Count 248 (160-400) X10*3/uL MPV 10.4 (9.4-12.3) fL Immature Gran % (Auto) 0.3 (0.0-0.4) % Neut % (Auto) 68.0 (45-73) % Lymph % (Auto) 23.4 (20-40) % Sac % (Auto) 7.4 (2-11) % Eos % (Auto) 0.6 (0-4) % Baso % (Auto) 0.3 (0-2) % Lymph # (Auto) 1.6 (1.2-4.9) X10*3/uL Sac # (Auto) 0.5 (0.1-1.2) X10*3/uL Eos # (Auto) 0.0 (0.0-0.4) X10*3/uL Baso # (Auto) 0.0 (0.0-0.2) X10*3/uL Abs Immat Gran (auto) 0.02 (0.00-0.03) X10*3/uL Absolute Neuts (auto) 4.7 (2.0-8.3) X10*3/uL Absolute Nucleated RBC 0.000 (0.0-0.012) X10*3/uL Nucleated RBC % (auto) 0.0 (0.0-0.2) /100WBC Sodium 140 (135-145) mmol/L Potassium 4.0 (3.3-5.1) mmol/L Chloride 103 (96-108) mmol/L Carbon Dioxide 28 (22-29) mmol/L Anion Gap 13 (12-20) BUN 9 (9-16) mg/dL Creatinine 0.83 (0.5-1.4) mg/dL Estim Creat Clear Calc 83.4 Estimated GFR > 60 Random Glucose 98 (60-115) mg/dL Calcium 9.8 D (8.4-10.2) mg/dL Total Bilirubin 0.4 (0.0-1.0) mg/dL Direct Bilirubin 0.2 (0.0-0.5) mg/dL AST 11 (5-31) U/L ALT 10 (0-31) U/L Alkaline Phosphatase 34 L (39-117) U/L Total Protein 7.9 (6.5-8.0) g/dL Albumin 4.8 (3.5-5.0) g/dL Lipase 50 (8-78) U/L Urine Color Urine Appearance Urine pH (5.0-8.0) Ur Specific Calion (1.005-1.025) Urine Protein (NEG-TRACE) MG/DL Urine Glucose (UA) (NEG) MG/DL Urine Ketones (NEG) MG/DL Urine Blood (NEG) Urine Nitrite (NEG) Ur Leukocyte Esterase (NEG) Urine RBC (0) /HPF Urine WBC (0-4) /HPF Ur Squamous Epith Cells /LPF Urine Bacteria /LPF Granular Casts /LPF Urine Mucus /LPF Urine Test (NEGATIVE) Stool Occult Blood NEG (NEG) 01/10/21 01/10/21 Range/Units 21:19 21:19 WBC (4.8-10.8) X10*3/uL RBC (4.20-5.50) X10*6/uL Hgb (12.0-16.0) g/dl Hct (37-47) % MCV (80-98) fL MCH (27.0-33.0) pg MCHC (31.0-35.0) g/dl RDW (11.0-16.0) % Plt Count (160-400) X10*3/uL MPV (9.4-12.3) fL Immature Gran % (Auto) (0.0-0.4) % Neut % (Auto) (45-73) % Lymph % (Auto) (20-40) % Sac % (Auto) (2-11) % Eos % (Auto) (0-4) % Baso % (Auto) (0-2) % Lymph # (Auto) (1.2-4.9) X10*3/uL Sac # (Auto) (0.1-1.2) X10*3/uL Eos # (Auto) (0.0-0.4) X10*3/uL Baso # (Auto) (0.0-0.2) X10*3/uL Abs Immat Gran (auto) (0.00-0.03) X10*3/uL Absolute Neuts (auto) (2.0-8.3) X10*3/uL Absolute Nucleated RBC (0.0-0.012) X10*3/uL Nucleated RBC % (auto) (0.0-0.2) /100WBC Sodium (135-145) mmol/L Potassium (3.3-5.1) mmol/L Chloride (96-108) mmol/L Carbon Dioxide (22-29) mmol/L Anion Gap (12-20) BUN (9-16) mg/dL Creatinine (0.5-1.4) mg/dL Estim Creat Clear Calc Estimated GFR Random Glucose (60-115) mg/dL Calcium (8.4-10.2) mg/dL Total Bilirubin (0.0-1.0) mg/dL Direct Bilirubin (0.0-0.5) mg/dL AST (5-31) U/L ALT (0-31) U/L Alkaline Phosphatase (39-117) U/L Total Protein (6.5-8.0) g/dL Albumin (3.5-5.0) g/dL Lipase (8-78) U/L Urine Color YELLOW Urine Appearance HAZY Urine pH 6.0 (5.0-8.0) Ur Specific Calion >= 1.030 H (1.005-1.025) Urine Protein NEG (NEG-TRACE) MG/DL Urine Glucose (UA) NEG (NEG) MG/DL Urine Ketones NEG (NEG) MG/DL Urine Blood 2+ H (NEG) Urine Nitrite NEG (NEG) Ur Leukocyte Esterase NEG (NEG) Urine RBC 5-9 H (0) /HPF Urine WBC 1-4 (0-4) /HPF Ur Squamous Epith Cells 1+ /LPF Urine Bacteria 1+ /LPF Granular Casts 1-4 /LPF Urine Mucus 1+ /LPF Urine Test NEGATIVE (NEGATIVE) Stool Occult Blood (NEG) Imaging Data CT scan - abdomen: Radiologist's impression: There is no acute abnormality in the abdomen or the pelvis. Discharge Plan Discharge Clinical Impression: Rectal bleed Abdominal pain Qualifiers: Abdominal location: lower abdomen, unspecified Qualified Code(s): R10.30 - Lower abdominal pain, unspecified Patient Disposition: Home, Self-Care Instructions: Abdominal Pain (ED) Prescriptions: No Action naproxen 500 mg tablet 500 mg PO BID PRN (Reason: pain) Qty: 20 RF: 0 xncvmxovdt-tdmxhqtswwibv-moax [Fioricet] 50-300-40 mg capsule 1 cap PO Q6H PRN (Reason: migraine headache) 4 Days Qty: 18 RF: 0 prednisone 20 mg tablet 40 mg PO DAILY 5 Days Qty: 10 RF: 0 Referrals: Maia Obregon DO [Primary Care Provider] - 2 days
[2021-01-10 21:23] VITALS: BP 113/57; PULSE 57; PULSE 76; RESP 15; TEMP 37; O2SAT 98
[2021-01-10 21:24] LABS: MANUAL DIFF FLAG NO
[2021-01-10 21:27] VITALS: BP 115/62; PULSE 76
[2021-01-10 21:27] LABS: Basophils Percent Auto 0.3 % (0-2); Eosinophils Percent Auto 0.6 % (0-4); Hematocrit 43.6 % (37-47); Hemoglobin 14.4 g/dl (12.0-16.0); Imm Gran Abs Auto 0.02 X10*3/uL (0.00-0.03); Imm Gran Pct Auto 0.3 % (0.0-0.4); Lymphocytes Absolute Auto 1.6 X10*3/uL (1.2-4.9); Lymphocytes Percent Auto 23.4 % (20-40); Mean Corpuscular Hemoglobin 32.4 pg (27.0-33.0); Mean Platelet Volume 10.4 fL (9.4-12.3); Monocytes Absolute Auto 0.5 X10*3/uL (0.1-1.2); Monocytes Percent Auto 7.4 % (2-11); Neutrophils Absolute Auto 4.7 X10*3/uL (2.0-8.3); Platelet Count 248 X10*3/uL (160-400); Red Blood Count 4.45 X10*6/uL (4.20-5.50); Red Cell Distribution Width 12.6 % (11.0-16.0); White Blood Count 6.9 X10*3/uL (4.8-10.8)
[2021-01-10 21:31] LABS: Glucose Urine UA NEG (NEG); Leukocyte Esterase Urine NEG (NEG); Nitrite Urine NEG (NEG); Specific Gravity - Urine >= 1.030 (1.005-1.025); Urine Blood 2+ (NEG); Urine Ketones NEG (NEG); Urine Protein NEG (NEG-TRACE)
[2021-01-10 21:42] LABS: OBS Int Ctl Valid YES; OBS1 NEG (NEG)
[2021-01-10 21:44] LABS: UPreg QC Valid YES; Urine Pregnancy NEGATIVE (NEGATIVE)
[2021-01-10 21:54] LABS: Alanine Aminotransferase 10 U/L (0-31); Albumin Level 4.8 g/dL (3.5-5.0); Alkaline Phosphatase 34 U/L (39-117); Anion Gap 13 (12-20); Appearance Urine HAZY; Aspartate Amino Transferase 11 U/L (5-31); Bilirubin Direct 0.2 mg/dL (0.0-0.5); Bilirubin Total 0.4 mg/dL (0.0-1.0); Blood Urea Nitrogen 9 mg/dL (9-16); Calcium 9.8 mg/dL (8.4-10.2); Carbon Dioxide 28 mmol/L (22-29); Chloride 103 mmol/L (96-108); Color Urine YELLOW; Creatinine Clr Calc Pharmacy 83.4; Estimated Glomerular Filt Rate > 60; Glucose Random 98 mg/dL (60-115); Lipase 50 U/L (8-78); Sodium 140 mmol/L (135-145); Total Protein 7.9 g/dL (6.5-8.0)
[2021-01-10 21:55] LABS: Squamous Epithelial Cell Urine 1+ /LPF
[2021-01-10 21:56] LABS: Bacteria Urine 1+ /LPF; Mucus Urine 1+ /LPF
[2021-01-10 22:00] VITALS: BP 104/64; PULSE 54; RESP 15; O2SAT 98
[2021-01-11] VITALS: BP 105/76; PULSE 48; RESP 16; TEMP 36.8; O2SAT 99
== END 2021-01-11 00:52 | disposition home or self-care (01) ==
PROVIDERS: Emergency Provider Emergency Medicine; PCP Internal Medicine
DX: K62.5 Hemorrhage of anus and rectum (principal); R10.30 Lower abdominal pain, unspecified; F12.90 Cannabis use, unspecified, uncomplicated; Z79.899 Other long term (current) drug therapy
CPT/HCPCS: 36415; 74176; 80048; 80076; 81001; 81025; 82272; 83690; 85025; 93005; 99285

== ENCOUNTER 2021-07-27 07:50 | Outpatient (REF) | payer OTHER, SELFPAY ==
[2021-07-27 07:59] VITALS: BP 95/65; PULSE 62; RESP 16; TEMP 36.3; O2SAT 99
[2021-07-27 08:00] VITALS: BMI 29.0
[2021-07-27 08:27] VITALS: BP 86/60; PULSE 63; RESP 16; O2SAT 97
[2021-07-27 08:36] VITALS: BP 98/59; PULSE 58; RESP 16; O2SAT 99
[2021-07-27 09:12] LABS: CSF Appearance Clear, Colorless; CSF Tube # 1
[2021-07-27 09:22] LABS: Glucose CSF 61 mg/dL; Total Protein CSF 29.8 mg/dL (15-45)
[2021-07-27 09:39] VITALS: BP 90/50; PULSE 52; RESP 16; O2SAT 98
[2021-07-27 10:20] LABS: Appearance CSF CLEAR; CSF Tube # 4; Color CSF COLORLESS
[2021-07-27 10:21] LABS: Red Blood Cell CSF 0 MM*3; White Blood Cell CSF 5 MM*3
[2021-07-27 10:22] LABS: CSF Monos 12 %; Lymphocytes CSF 88 %
[2021-07-27 10:38] VITALS: BP 91/56; PULSE 55; RESP 16; O2SAT 99
[2021-07-27 11:06] VITALS: PULSE 56; RESP 16; O2SAT 99
== END 2021-07-27 11:08 | disposition home or self-care (01) ==
LOC: HO.MS 07:50
PROVIDERS: PCP Internal Medicine; Visit Provider Psychiatry & Neurology Neurology
PROC: 009U3ZZ Drainage of Spinal Canal, Percutaneous Approach (ICD-10-PCS; CPT 62270; principal; 2021-07-27 08:00)
DX: G43.919 Migraine, unspecified, intractable, without status migrainosus (principal)
CPT/HCPCS: 62270; 82945; 84157; 87015; 87070; 87205; 89051

== ENCOUNTER 2021-11-28 11:30 | Outpatient (REF) | payer OTHER, SELFPAY ==
[2021-11-28 13:04] LABS: Binax Internal Control QC Valid; Binax Now Covid-19 Ag Positive (Negative)
== END 2021-11-28 11:31 | disposition home or self-care (01) ==
LOC: HO.LAB 11:30
PROVIDERS: Visit Provider Internal Medicine
DX: Z20.822 Contact with and (suspected) exposure to COVID-19 (principal)
CPT/HCPCS: C9803

== ENCOUNTER 2021-12-25 07:40 | Outpatient (REF) | payer OTHER, SELFPAY ==
[2021-12-25] VITALS (7 sets, daily range): BP systolic 90–112; BP diastolic 53–68; PULSE 48–58; RESP 16; TEMP 36.1–36.6; O2SAT 97–99; BMI 29.6
--- NOTE | 2021-12-25 08:00 | OP_ITS ---
SURGEON: Cristy Gay MD PREOPERATIVE DIAGNOSIS: POSTOPERATIVE DIAGNOSIS: PROCEDURE PERFORMED: Lumbar puncture. ESTIMATED BLOOD LOSS: COMPLICATIONS: ANESTHESIA: ASSISTANTS: SPECIMENS: INDICATION: Pseudotumor cerebri. Risks and benefits of lumbar puncture were discussed with her in detail including possibility of low back pain, nerve injury, infection, intractable headache, leg pain, numbness, and weakness. Questions were answered before the procedure. DESCRIPTION OF PROCEDURE: She was placed in left lateral position. Lower lumbar area was cleaned with Betadine and draped. 1% lidocaine was injected in L4-L5 space. A 20-gauge spinal needle was introduced in CSF cavity. Opening pressure was 30 mm of water. Clear CSF was removed. Needle removed and area was cleaned with alcohol and a Band-Aid applied. The patient tolerated procedure quite well and CSF was sent to the lab. Cristy Gay MD MZK/MODL / [id number] MTDD
[2021-12-25 09:51] LABS: Appearance CSF CLEAR; CSF Tube # 4
[2021-12-25 09:52] LABS: CSF Monos 0 %; CSF Other Cells % 0 %; Color CSF COLORLESS; Lymphocytes CSF 100 %; Neutrophils CSF 0 %; Red Blood Cell CSF 0 MM*3; White Blood Cell CSF 3 MM*3
[2021-12-25 09:59] LABS: Glucose CSF 56 mg/dL; Total Protein CSF 28.2 mg/dL (15-45)
[2021-12-25 10:34] LABS: CSF Appearance Clear, Colorless; CSF Tube # 2
[2021-12-25] MEDS: Acetaminophen 325 MG TABLET 650 MG PO (10:56)
== END 2021-12-25 11:03 | disposition home or self-care (01) ==
LOC: HO.MS 07:40
PROVIDERS: PCP Internal Medicine; Visit Provider Psychiatry & Neurology Neurology
PROC: 009U3ZZ Drainage of Spinal Canal, Percutaneous Approach (ICD-10-PCS; CPT 62270; principal; 2021-12-25 08:00)
DX: G93.2 Benign intracranial hypertension (principal)
CPT/HCPCS: 62270; 82945; 84157; 87015; 87070; 87205; 89051

== ENCOUNTER → 2022-02-12 08:15 | Outpatient (BNVA) | payer OTHER, SELFPAY | PROVIDERS: PCP Internal Medicine; Visit Provider Internal Medicine | DX: G93.2 Benign intracranial hypertension (principal); R51.9 Headache, unspecified | CPT/HCPCS: 99202 ==

== ENCOUNTER 2022-02-27 16:19 | Outpatient (REF) | payer OTHER, SELFPAY ==
--- NOTE | ~2022-02-27 | MR_ITS ---
EXAMINATION: MR VENOGRAPHY OF THE BRAIN WITHOUT AND WITH CONTRAST CLINICAL INFORMATION: 36-year-old with benign intracranial hypertension. COMPARISON: None TECHNIQUE: 2-D phase contrast MR venography was performed prior to 2-D gvox-jn-zoaegw MR venography, followed by time resolved MR venography utilizing the intravenous administration of 10 mL of Gadavist. FINDINGS: There is normal flow-related enhancement within the superior sagittal sinus, straight sinus, both transverse sinuses and sigmoid sinuses as well as within the visualized jugular bulbs. There is flow-related enhancement within the visualized upper IJ veins bilaterally. There is no evidence for dural venous sinus occlusion or significant dural venous sinus stenosis. The left transverse sinus is nondominant compared to the right. There is visualization of the internal cerebral veins and vein of Dariel. The major cortical veins appear patent. MR/MR venography head wo/w con IMPRESSION: Normal MR venography. No evidence for major dural venous sinus occlusion or significant dural venous sinus stenosis.
== END 2022-02-27 16:20 | disposition home or self-care (01) ==
LOC: HO.MRI 16:19
PROVIDERS: Visit Provider Internal Medicine
DX: G93.2 Benign intracranial hypertension (principal)
CPT/HCPCS: 70546; A9585

== ENCOUNTER 2022-10-31 14:05 | Emergency (ER) | payer OTHER, SELFPAY ==
[2022-10-31 14:27] VITALS: BP 95/63; PULSE 62; RESP 17; TEMP 35.7; O2SAT 98; BMI 27.9
--- NOTE | 2022-10-31 14:27 | ED.GENADULT ---
HPI - General Adult General Chief complaint: Neuro Symptoms/Deficit <Tanja Mello NP - Last Filed: 10/31/22 14:30> Stated complaint: face tingling, started new medication <Tanja Mello NP - Last Filed: 10/31/22 14:30> Time Seen by Provider: 10/31/22 20:18 <Tanja Mello NP - Last Filed: 10/31/22 14:30> Source: patient <Ke Cuenca MD - Last Filed: 10/31/22 20:51> Mode of arrival: ambulatory <Ke Cuenca MD - Last Filed: 10/31/22 20:51> Limitations: no limitations <Ke Cuenca MD - Last Filed: 10/31/22 20:51> History of Present Illness HPI narrative: Patient is a complex migraine chronic headache been followed by pain clinic and neurologist had tried multiple medications 1 week ago patient fell landed on her buttocks no head injury comes here for bilateral facial tingling started yesterday after taking Flexeril and Nabutone no facial weakness no other weakness patient denies any significant change in headaches no nausea vomiting no balance problem no vision problems <Ke Cuenca MD - Last Filed: 10/31/22 20:51> Related Data Allergies/adverse reactions: Allergies Allergy/AdvReac Type Severity Reaction Status Date / Time morphine Allergy Intermediate urticaria Verified 02/12/22 08:23 drospirenone [From JESSE (28)] Allergy Unknown UNKNOWN Verified 02/12/22 08:23 ethinyl estradiol Allergy Unknown UNKNOWN Verified 02/12/22 08:23 [From JESSE (28)] Penicillins [PENICILLINS] Allergy Unknown HIVES Verified 02/12/22 08:23 metronidazole Allergy Chills Verified 02/12/22 08:23 <Tanja Mello NP - Last Filed: 10/31/22 14:30> Review of Systems Review of Systems: Yes all other systems are reviewed and are negative <Ke Cuenca MD - Last Filed: 10/31/22 20:51> PMFSH Past Medical History Medical History: Medical History Idiopathic intracranial hypertension Intractable headache Migraines Vertigo <Tanja Mello NP - Last Filed: 10/31/22 14:30> Social History Social History: Social History Alcohol intake: never Substance Use Type: Marijuana Advance Directives: No Advance Directives Information Provided: No <Tanja Mello NP - Last Filed: 10/31/22 14:30> Physical Exam ED Vital Signs: Vital Signs - 24 hr 10/31/22 14:27 12 20:15 Temperature 96.3 F L 97.8 F Pulse Rate 62 68 Respiratory Rate 17 18 Blood Pressure 95/63 106/62 Pulse Oximetry 98 99 Oxygen Delivery Method Room Air Room Air BMI result Body Mass Index 27.9 <Tanja Mello NP - Last Filed: 10/31/22 14:30> Vital Signs - 24 hr 10/31/22 14:27 10/31/22 20:15 Temperature 96.3 F L 97.8 F Pulse Rate 62 68 Respiratory Rate 17 18 Blood Pressure 95/63 106/62 Pulse Oximetry 98 99 Oxygen Delivery Method Room Air Room Air BMI result Body Mass Index 27.9 <Ke Cuenca MD - Last Filed: 10/31/22 20:51> Appearance: Alert. Oriented X3. No acute distress. Eyes: PERRLA, No Nystagmus ENT: Pharynx normal. Oral Mucosa moist Neck: Normal inspection. Neck supple. CVS: Normal heart rate and rhythm. Pulses normal. Respiratory: No respiratory distress. Equal air entry bilateral, no wheezing/rales/rhonchi Abdomen: Soft and nontender. Bowel sounds are present, no mass palpable, no CVA tenderness Skin: Skin warm and dry. Normal skin color. Normal skin turgor. Extremities: No lower extremity edema. No calf tenderness Neuro: Oriented X 3. No motor deficit. No sensory deficit.No cerebellar signs , cranial nerves II-XII intact <Ke Cuenca MD - Last Filed: 10/31/22 20:51> Course Course Course Narrative: This is a rapid medical exam. Deferred additional HPI, ROS, PE to primary provider. 37 yo female with history of anxiety, depression, bipolar, idiopathic intracranial HTN, IBS here with complaints of entire face tingling after taking a dose of flexeril/nabumetone early intervention specialist before 9am. Patient has been taking these medications since 10/30 after being seen for a fall with subsequent back pain. Will check labs, UA, ur preg. VSS. <Tanja Mello NP - Last Filed: 10/31/22 14:30> Medical Decision Making Medical Decision Making [facility] Narrative: Patient nonspecific bilateral facial tingling sensation no facial weakness no trigger point tenderness labs are stable patient advised to follow up neurologist likely possible from complex migraine but patient denied significant change in headache at this time <Ke Cuenca MD - Last Filed: 10/31/22 20:51> Lab Data [facility] Lab Attestation statement: I reviewed the patient's lab results. <Ke Cuenca MD - Last Filed: 10/31/22 20:51> Result Diagrams: : 10/31/22 14:47 10/31/22 14:47 <Tanja Mello NP - Last Filed: 10/31/22 14:30> Labs: Lab Results 10/31/22 10/31/22 10/31/22 Range/Units 14:47 14:47 14:47 WBC 6.9 (4.8-10.8) X10*3/uL RBC 4.65 (4.20-5.50) X10*6/uL Hgb 14.9 (12.0-16.0) g/dl Hct 45.2 (37.0-47.0) % MCV 97.2 (80.0-98.0) fL MCH 32.0 (27.0-33.0) pg MCHC 33.0 (31.0-35.0) g/dl RDW 13.2 (11.0-16.0) % Plt Count 287 (160-400) X10*3/uL MPV 10.1 (9.4-12.3) fL Immature Gran % (Auto) 0.3 (0.0-0.4) % Neut % (Auto) 48.1 (45-73) % Lymph % (Auto) 39.6 (20-40) % Coos % (Auto) 8.3 (2-11) % Eos % (Auto) 2.5 (0-4) % Baso % (Auto) 1.2 (0-2) % Lymph # (Auto) 2.7 (1.2-4.9) X10*3/uL [place]os # (Auto) 0.6 (0.1-1.2) X10*3/uL Eos # (Auto) 0.2 (0.0-0.4) X10*3/uL Baso # (Auto) 0.1 (0.0-0.2) X10*3/uL Abs Immat Gran (auto) 0.02 (0.00-0.03) X10*3/uL Absolute Neuts (auto) 3.3 (2.0-8.3) x10*3/uL Absolute Nucleated RBC 0.000 (0.0-0.012) X10*3/uL Nucleated RBC % (auto) 0.0 (0.0-0.2) /100WBC Sodium 139 (135-145) mmol/L Potassium 4.0 (3.3-5.1) mmol/L Chloride 109 H (96-108) mmol/L Carbon Dioxide 22 (22-29) mmol/L Anion Gap 12 (12-20) BUN 15 (9-16) mg/dL Creatinine 1.05 (0.5-1.4) mg/dL Estim Creat Clear Calc 64.9 Estimated GFR 59 Random Glucose 98 (60-115) mg/dL Calcium 9.9 (8.4-10.2) mg/dL Magnesium 2.0 (1.6-2.6) mg/dL Total Bilirubin 0.3 (0.0-1.0) mg/dL Direct Bilirubin < 0.2 (0.0-0.5) mg/dL AST 18 (5-31) U/L ALT 14 (0-31) U/L Alkaline Phosphatase 40 (39-117) U/L Total Protein 8.1 H (6.5-8.0) g/dL Albumin 4.9 (3.5-5.0) g/dL Urine Color Yellow Urine Appearance Turbid Urine pH 7.0 (5.0-9.0) Ur Specific [place] 1.020 (1.005-1.025) Urine Protein Negative (Neg-Trace) mg/dL Urine Glucose (UA) Negative (Negative) mg/dL Urine Ketones Trace (Negative) mg/dL Urine Blood Negative (Negative) Urine Nitrite Negative (Negative) Ur Leukocyte Esterase Negative (Negative) Urine Test (NEGATIVE) 10/31/22 Range/Units 14:47 WBC (4.8-10.8) X10*3/uL RBC (4.20-5.50) X10*6/uL Hgb (12.0-16.0) g/dl Hct (37.0-47.0) % MCV (80.0-98.0) fL MCH (27.0-33.0) pg MCHC (31.0-35.0) g/dl RDW (11.0-16.0) % Plt Count (160-400) X10*3/uL MPV (9.4-12.3) fL Immature Gran % (Auto) (0.0-0.4) % Neut % (Auto) (45-73) % Lymph % (Auto) (20-40) % Coos % (Auto) (2-11) % Eos % (Auto) (0-4) % Baso % (Auto) (0-2) % Lymph # (Auto) (1.2-4.9) X10*3/uL [place] # (Auto) (0.1-1.2) X10*3/uL Eos # (Auto) (0.0-0.4) X10*3/uL Baso # (Auto) (0.0-0.2) X10*3/uL Abs Immat Gran (auto) (0.00-0.03) X10*3/uL Absolute Neuts (auto) (2.0-8.3) x10*3/uL Absolute Nucleated RBC (0.0-0.012) X10*3/uL Nucleated RBC % (auto) (0.0-0.2) /100WBC Sodium (135-145) mmol/L Potassium (3.3-5.1) mmol/L Chloride (96-108) mmol/L Carbon Dioxide (22-29) mmol/L Anion Gap (12-20) BUN (9-16) mg/dL Creatinine (0.5-1.4) mg/dL Estim Creat Clear Calc Estimated GFR Random Glucose (60-115) mg/dL Calcium (8.4-10.2) mg/dL Magnesium (1.6-2.6) mg/dL Total Bilirubin (0.0-1.0) mg/dL Direct Bilirubin (0.0-0.5) mg/dL AST (5-31) U/L ALT (0-31) U/L Alkaline Phosphatase (39-117) U/L Total Protein (6.5-8.0) g/dL Albumin (3.5-5.0) g/dL Urine Color Urine Appearance Urine pH (5.0-9.0) Ur Specific [place] (1.005-1.025) Urine Protein (Neg-Trace) mg/dL Urine Glucose (UA) (Negative) mg/dL Urine Ketones (Negative) mg/dL Urine Blood (Negative) Urine Nitrite (Negative) Ur Leukocyte Esterase (Negative) Urine Test NEGATIVE (NEGATIVE) <Tanja Mello NP - Last Filed: 10/31/22 14:30> Lab Results 10/31/22 10/31/22 10/31/22 Range/Units 14:47 14:47 14:47 WBC 6.9 (4.8-10.8) X10*3/uL RBC 4.65 (4.20-5.50) X10*6/uL Hgb 14.9 (12.0-16.0) g/dl Hct 45.2 (37.0-47.0) % MCV 97.2 (80.0-98.0) fL MCH 32.0 (27.0-33.0) pg MCHC 33.0 (31.0-35.0) g/dl RDW 13.2 (11.0-16.0) % Plt Count 287 (160-400) X10*3/uL MPV 10.1 (9.4-12.3) fL Immature Gran % (Auto) 0.3 (0.0-0.4) % Neut % (Auto) 48.1 (45-73) % Lymph % (Auto) 39.6 (20-40) % Coos % (Auto) 8.3 (2-11) % Eos % (Auto) 2.5 (0-4) % Baso % (Auto) 1.2 (0-2) % Lymph # (Auto) 2.7 (1.2-4.9) X10*3/uL [place] # (Auto) 0.6 (0.1-1.2) X10*3/uL Eos # (Auto) 0.2 (0.0-0.4) X10*3/uL Baso # (Auto) 0.1 (0.0-0.2) X10*3/uL Abs Immat Gran (auto) 0.02 (0.00-0.03) X10*3/uL Absolute Neuts (auto) 3.3 (2.0-8.3) x10*3/uL Absolute Nucleated RBC 0.000 (0.0-0.012) X10*3/uL Nucleated RBC % (auto) 0.0 (0.0-0.2) /100WBC Sodium 139 (135-145) mmol/L Potassium 4.0 (3.3-5.1) mmol/L Chloride 109 H (96-108) mmol/L Carbon Dioxide 22 (22-29) mmol/L Anion Gap 12 (12-20) BUN 15 (9-16) mg/dL Creatinine 1.05 (0.5-1.4) mg/dL Estim Creat Clear Calc 64.9 Estimated GFR 59 Random Glucose 98 (60-115) mg/dL Calcium 9.9 (8.4-10.2) mg/dL Magnesium 2.0 (1.6-2.6) mg/dL Total Bilirubin 0.3 (0.0-1.0) mg/dL Direct Bilirubin < 0.2 (0.0-0.5) mg/dL AST 18 (5-31) U/L ALT 14 (0-31) U/L Alkaline Phosphatase 40 (39-117) U/L Total Protein 8.1 H (6.5-8.0) g/dL Albumin 4.9 (3.5-5.0) g/dL Urine Color Yellow Urine Appearance Turbid Urine pH 7.0 (5.0-9.0) Ur Specific [place] 1.020 (1.005-1.025) Urine Protein Negative (Neg-Trace) mg/dL Urine Glucose (UA) Negative (Negative) mg/dL Urine Ketones Trace (Negative) mg/dL Urine Blood Negative (Negative) Urine Nitrite Negative (Negative) Ur Leukocyte Esterase Negative (Negative) Urine Test (NEGATIVE) 10/31/22 Range/Units 14:47 WBC (4.8-10.8) X10*3/uL RBC (4.20-5.50) X10*6/uL Hgb (12.0-16.0) g/dl Hct (37.0-47.0) % MCV (80.0-98.0) fL MCH (27.0-33.0) pg MCHC (31.0-35.0) g/dl RDW (11.0-16.0) % Plt Count (160-400) X10*3/uL MPV (9.4-12.3) fL Immature Gran % (Auto) (0.0-0.4) % Neut % (Auto) (45-73) % Lymph % (Auto) (20-40) % [place] % (Auto) (2-11) % Eos % (Auto) (0-4) % Baso % (Auto) (0-2) % Lymph # (Auto) (1.2-4.9) X10*3/uL [place] # (Auto) (0.1-1.2) X10*3/uL Eos # (Auto) (0.0-0.4) X10*3/uL Baso # (Auto) (0.0-0.2) X10*3/uL Abs Immat Gran (auto) (0.00-0.03) X10*3/uL Absolute Neuts (auto) (2.0-8.3) x10*3/uL Absolute Nucleated RBC (0.0-0.012) X10*3/uL Nucleated RBC % (auto) (0.0-0.2) /100WBC Sodium (135-145) mmol/L Potassium (3.3-5.1) mmol/L Chloride (96-108) mmol/L Carbon Dioxide (22-29) mmol/L Anion Gap (12-20) BUN (9-16) mg/dL Creatinine (0.5-1.4) mg/dL Estim Creat Clear Calc Estimated GFR Random Glucose (60-115) mg/dL Calcium (8.4-10.2) mg/dL Magnesium (1.6-2.6) mg/dL Total Bilirubin (0.0-1.0) mg/dL Direct Bilirubin (0.0-0.5) mg/dL AST (5-31) U/L ALT (0-31) U/L Alkaline Phosphatase (39-117) U/L Total Protein (6.5-8.0) g/dL Albumin (3.5-5.0) g/dL Urine Color Urine Appearance Urine pH (5.0-9.0) Ur Specific [place] (1.005-1.025) Urine Protein (Neg-Trace) mg/dL Urine Glucose (UA) (Negative) mg/dL Urine Ketones (Negative) mg/dL Urine Blood (Negative) Urine Nitrite (Negative) Ur Leukocyte Esterase (Negative) Urine Test NEGATIVE (NEGATIVE) <Ke Cuenca MD - Last Filed: 10/31/22 20:51> Discharge Plan Discharge Clinical Impression: Paresthesia <Tanja Mello NP - Last Filed: 10/31/22 14:30> Patient Disposition: Home, Self-Care <Tanja eMllo NP - Last Filed: 10/31/22 14:30> Instructions: Paresthesia (ED) <Tanja Mello NP - Last Filed: 10/31/22 14:30> Additional Instructions: Cause of your tingling sensation is not very clear follow-up with your neurologist for further evaluation <Tanja Mello NP - Last Filed: 10/31/22 14:30> Interventions: ED Discharge Assessment Last Done: 10/31/22 20:36 <Tanja Mello NP - Last Filed: 10/31/22 14:30> Discharge Date/Time: 10/31/22 20:36 <Tanja Mello NP - Last Filed: 10/31/22 14:30>
[2022-10-31 14:56] LABS: MANUAL DIFF FLAG NO
[2022-10-31 14:59] LABS: Basophils Absolute Auto 0.1 X10*3/uL (0.0-0.2); Basophils Percent Auto 1.2 % (0-2); Eosinophils Absolute Auto 0.2 X10*3/uL (0.0-0.4); Eosinophils Percent Auto 2.5 % (0-4); Hematocrit 45.2 % (37.0-47.0); Hemoglobin 14.9 g/dl (12.0-16.0); Imm Gran Abs Auto 0.02 X10*3/uL (0.00-0.03); Imm Gran Pct Auto 0.3 % (0.0-0.4); Lymphocytes Absolute Auto 2.7 X10*3/uL (1.2-4.9); Lymphocytes Percent Auto 39.6 % (20-40); Mean Corpuscular Volume 97.2 fL (80.0-98.0); Mean Platelet Volume 10.1 fL (9.4-12.3); Monocytes Absolute Auto 0.6 X10*3/uL (0.1-1.2); Monocytes Percent Auto 8.3 % (2-11); Neutrophils Absolute Auto 3.3 x10*3/uL (2.0-8.3); Neutrophils Percent Auto 48.1 % (45-73); Platelet Count 287 X10*3/uL (160-400); Red Blood Count 4.65 X10*6/uL (4.20-5.50); Red Cell Distribution Width 13.2 % (11.0-16.0); White Blood Count 6.9 X10*3/uL (4.8-10.8)
[2022-10-31 15:01] LABS: Appearance Urine Turbid; Color Urine Yellow; Glucose Urine UA Negative (Negative); Leukocyte Esterase Urine Negative (Negative); Nitrite Urine Negative (Negative); Urine Blood Negative (Negative); Urine Ketones Trace mg/dL (Negative); Urine Protein Negative (Neg-Trace)
[2022-10-31 15:05] LABS: UPreg QC Valid YES; Urine Pregnancy NEGATIVE (NEGATIVE)
[2022-10-31 15:15] LABS: Alanine Aminotransferase 14 U/L (0-31); Albumin Level 4.9 g/dL (3.5-5.0); Alkaline Phosphatase 40 U/L (39-117); Anion Gap 12 (12-20); Aspartate Amino Transferase 18 U/L (5-31); Bilirubin Direct < 0.2 mg/dL (0.0-0.5); Bilirubin Total 0.3 mg/dL (0.0-1.0); Blood Urea Nitrogen 15 mg/dL (9-16); Calcium 9.9 mg/dL (8.4-10.2); Carbon Dioxide 22 mmol/L (22-29); Chloride 109 mmol/L (96-108); Creatinine Clr Calc Pharmacy 64.9; Estimated Glomerular Filt Rate 59; Glucose Random 98 mg/dL (60-115); Sodium 139 mmol/L (135-145); Total Protein 8.1 g/dL (6.5-8.0)
[2022-10-31 20:15] VITALS: BP 106/62; PULSE 68; RESP 18; TEMP 36.6; O2SAT 99
== END 2022-10-31 20:36 | disposition home or self-care (01) ==
PROVIDERS: Nurse Practitioner Family; Emergency Provider Internal Medicine; PCP Internal Medicine
DX: R20.2 Paresthesia of skin (principal)
CPT/HCPCS: 36415; 80048; 80076; 81003; 81025; 83735; 85025; 99283

== ENCOUNTER 2023-01-02 11:21 | Emergency (ER) | payer OTHER, SELFPAY ==
--- NOTE | ~2023-01-02 | CT_ITS ---
EXAMINATION: CT HEAD WITHOUT CONTRAST CLINICAL INFORMATION: Right facial numbness. Nonfocal examination. COMPARISON: CT head 12/03/2020. TECHNIQUE: Contiguous axial imaging was performed from the skull base to vertex without intravenous administration of contrast. This CT examination was performed using dose optimization techniques as appropriate, variously including the following: *Automated exposure control *Adjustment of mA and/or kV according to patient size (this includes techniques or standardized protocols for targeted exams where dose is matched to indication/reason for exam; i.e. extremities or head) *Use of iterative reconstruction technique DLP: 811 mGy-cm FINDINGS: There is no acute intracranial hemorrhage or abnormal extra-axial collection. No intracranial mass effect or midline shift. Lateral and third ventricles are normal. No hydrocephalus. Mendes-white matter differentiation is grossly preserved and there is no evidence of acute territorial infarct. The calvarium and skull base are intact. Mastoid air cells and middle ear cavities are well aerated. No active paranasal sinus disease. CT/CT head/brain wo IV con IMPRESSION: Unremarkable CT scan of the head. No evidence of acute territorial infarct or hemorrhage.
[2023-01-02 11:28] VITALS: BP 119/66; PULSE 67; RESP 18; TEMP 37; O2SAT 98; BMI 27.8
--- NOTE | 2023-01-02 11:28 | ED_ITS ---
HPI - General Adult General Chief complaint: General Medical <Maggy Siegel CNP - Last Filed: 01/05/23 17:02> Stated complaint: r sided facial numbness <Maggy Siegel CNP - Last Filed: 01/05/23 17:02> Time Seen by Provider: 01/02/23 14:29 <Maggy Siegel CNP - Last Filed: 01/05/23 17:02> History of Present Illness HPI narrative: Patient complains of tingling sensation in the right side of the face which began this morning and has mildly improved since then, she never had loss of sensation or any asymmetry in her face or any weakness of the facial muscles, she has no headache now, she had no fainting or feeling faint no vision loss or change, never had confusion She has had a typical migraine often on for the past 2 days with headache pain shifting from side to side, earlier she had a headache on the left side but that has since resolved She felt mildly dizzy earlier but never had any trouble walking or balance She has had no recent fever or stiff neck , no difficulty with balance or walking does not recall any tick bites She has had similar symptoms of facial tingling in the past but usually on both sides of her face, she got worried today as it was just 1 side and came to be checked <CB Rucker - Last Filed: 01/05/23 11:39> Related Data Allergies/adverse reactions: Allergies Allergy/AdvReac Type Severity Reaction Status Date / Time morphine Allergy Intermediate urticaria Verified 02/12/22 08:23 drospirenone [From JESSE (28)] Allergy Unknown UNKNOWN Verified 02/12/22 08:23 ethinyl estradiol Allergy Unknown UNKNOWN Verified 02/12/22 08:23 [From JESSE (28)] Penicillins [PENICILLINS] Allergy Unknown HIVES Verified 02/12/22 08:23 metronidazole Allergy Chills Verified 02/12/22 08:23 <Maggy Siegel CNP - Last Filed: 01/05/23 17:02> PMFSH Past Medical History PMFSH Narrative: Patient has history of anxiety <CB Rucker - Last Filed: 01/05/23 11:39> Medical History: Medical History Idiopathic intracranial hypertension Intractable headache Migraines Vertigo <Maggy AlexandraCAMACHO singh - Last Filed: 01/05/23 17:02> Social History Social History: Social History Alcohol intake: never Substance Use Type: Marijuana Advance Directives: No Advance Directives Information Provided: Yes <Maggy AlexandraCAMACHO singh - Last Filed: 01/05/23 17:02> Physical Exam ED Vital Signs: Vital Signs - 24 hr 01/02/23 11:28 01/02/23 14:27 Temperature 98.6 F 98.3 F Pulse Rate 67 50 Respiratory Rate 18 18 Blood Pressure 119/66 104/66 Pulse Oximetry 98 99 Oxygen Delivery Method Room Air BMI result Body Mass Index 27.8 <Maggy SiegelCAMACHO - Last Filed: 01/05/23 17:02> Vital Signs - 24 hr 01/02/23 11:28 01/02/23 14:27 Temperature 98.6 F 98.3 F Pulse Rate 67 50 Respiratory Rate 18 18 Blood Pressure 119/66 104/66 Pulse Oximetry 98 99 Oxygen Delivery Method Room Air BMI result Body Mass Index 27.8 <CB Rucker - Last Filed: 01/05/23 11:39> General appearance is no acute distress, come and cooperative The ears are clear, normal tympanic membranes normal canals The eyes no redness no discharge, pupils equal round reactive to light extraocular motions are intact The pharynx is clear no redness swelling or exudate Neck is supple Chest is clear to auscultation bilateral Heart no murmur Abdomen soft nontender Extremities full range of motion x4 Neuro exam sensation is intact and symmetrical on both sides of the face, there is no facial asymmetry, cranial nerves 2 through 12 are intact as tested Speech is normal, interaction both comprehension and expression are normal, gait and balance are normal Motor is 5/5 x4, sensation is intact and symmetrical, cerebellar exam, finger to nose, is normal <CB Rucker - Last Filed: 01/05/23 11:39> Course Course Course Narrative: This is an RME: Additional HPI, ROS, PE not included below will be deferred to primary provider. Patient is a 37-year-old female who presents emergency department with complaint of right facial numbness. Awoke at 0500 with diffuse right-sided facial numbness and muffled hearing in right ear. Associated dizziness described as but removing, similar to her prior episodes of vertigo. She does report a history of migraine headaches, she has been experiencing a right-sided migraine for the past 2 days. Denies prior episodes of facial numbness associated with migraines. She does however endorse that she gets whole face numbness with periods of anxiety, not feel particularly anxious at this time. Denies fevers, chills, sore throat, cough, chest pain, shortness of breath. Denies recent known tick bites. PE: No focal neurological deficits, clear speech. TM normal, no lesions noted to the canal. No facial erythema, swelling. Ambulatory with a steady gait. Speaking clear full sentences. Plan: I have a low suspicion for ICH/SAH/infarct, in at this time she would be outside of the window for any tPA, however will obtain CT to exclude, will obtain basic labs, migraine management and re-evaluation. <Maggy Siegel, CAMACHO - Last Filed: 01/05/23 17:02> This is an RME: Additional HPI, ROS, PE not included below will be deferred to primary provider. Patient is a 37-year-old female who presents emergency department with complaint of right facial numbness. Awoke at 0500 with diffuse right-sided facial numbness and muffled hearing in right ear. Associated dizziness described as but removing, similar to her prior episodes of vertigo. She does report a history of migraine headaches, she has been experiencing a right-sided migraine for the past 2 days. Denies prior episodes of facial numbness associated with migraines. She does however endorse that she gets whole face numbness with periods of anxiety, not feel particularly anxious at this time. Denies fevers, chills, sore throat, cough, chest pain, shortness of breath. Denies recent known tick bites. PE: No focal neurological deficits, clear speech. TM normal, no lesions noted to the canal. No facial erythema, swelling. Ambulatory with a steady gait. Speaking clear full sentences. Plan: I have a low suspicion for ICH/SAH/infarct, in at this time she would be outside of the window for any tPA, however will obtain CT to exclude, will obtain basic labs, migraine management and re-evaluation. Patient with the complaint of facial tingling, as well as a typical migraine headache waxing and waning for the past 2 days She has had tingling before usually on both sides of the face and she has a long history of migraine headache and today's headache is similar pattern No abrupt onset headache no confusion she never had any weakness or loss of sensation never any facial droop or confusion, no fainting or feeling faint Today her head CT was normal as were electrolytes and CBC, a Lyme test is pending Patient now feels more comfortable even without any treatment the headache is almost gone and the tingling is almost going to and she is discharged ambulating easy communicating normally with normal neurologic exam <CB Rucker - Last Filed: 01/05/23 11:39> Medical Decision Making Lab Data MDM Lab Attestation statement: I reviewed the patient's lab results. <CB Rucker - Last Filed: 01/05/23 11:39> Result Diagrams: 01/02/23 12:13 01/02/23 12:13 <Maggy Siegel CNP - Last Filed: 01/05/23 17:02> Labs: Lab Results 01/02/23 01/02/23 01/02/23 Range/Units 12:13 12:13 12:13 WBC (4.8-10.8) X10*3/uL RBC (4.20-5.50) X10*6/uL Hgb (12.0-16.0) g/dl Hct (37.0-47.0) % MCV (80.0-98.0) fL MCH (27.0-33.0) pg MCHC (31.0-35.0) g/dl RDW (11.0-16.0) % Plt Count (160-400) X10*3/uL MPV (9.4-12.3) fL Immature Gran % (Auto) (0.0-0.4) % Neut % (Auto) (45-73) % Lymph % (Auto) (20-40) % [place] % (Auto) (2-11) % Eos % (Auto) (0-4) % Baso % (Auto) (0-2) % Lymph # (Auto) (1.2-4.9) X10*3/uL [place] # (Auto) (0.1-1.2) X10*3/uL Eos # (Auto) (0.0-0.4) X10*3/uL Baso # (Auto) (0.0-0.2) X10*3/uL Abs Immat Gran (auto) (0.00-0.03) X10*3/uL Absolute Neuts (auto) (2.0-8.3) x10*3/uL Absolute Nucleated RBC (0.0-0.012) X10*3/uL Nucleated RBC % (auto) (0.0-0.2) /100WBC Sodium 142 (135-145) mmol/L Potassium 4.4 (3.3-5.1) mmol/L Chloride 109 H (96-108) mmol/L Carbon Dioxide 24 (22-29) mmol/L Anion Gap 13 (12-20) BUN 6 L (9-16) mg/dL Creatinine 0.88 (0.5-1.4) mg/dL Estim Creat Clear Calc 77.2 Estimated GFR > 60 Random Glucose 97 (60-115) mg/dL Calcium 9.4 (8.4-10.2) mg/dL Total Bilirubin 0.5 (0.0-1.0) mg/dL AST 13 (5-31) U/L ALT 9 (0-31) U/L Alkaline Phosphatase 33 L (39-117) U/L Total Protein 7.1 (6.5-8.0) g/dL Albumin 4.5 (3.5-5.0) g/dL Beta HCG, Quant < 2 mIU/mL A.phagocytophil DNA PCR NOT DETECTED (NOT DETECTED) Babesia microti DNA PCR NOT DETECTED (NOT DETECTED) Borrelia sp DNA (PCR) NOT DETECTED (NOT DETECTED) Lyme Screen IgG & IgM <0.90 index Lyme Progressive Test TNP Borrelia miyamotoi (PCR) NOT DETECTED (NOT DETECTED) E.chaffeensis DNA (PCR) NOT DETECTED (NOT DETECTED) Tick-borne Disease Ab SEE NOTE 01/02/23 Range/Units 12:13 WBC 5.0 (4.8-10.8) X10*3/uL RBC 4.25 (4.20-5.50) X10*6/uL Hgb 13.9 (12.0-16.0) g/dl Hct 41.2 (37.0-47.0) % MCV 96.9 (80.0-98.0) fL MCH 32.7 (27.0-33.0) pg MCHC 33.7 (31.0-35.0) g/dl RDW 12.6 (11.0-16.0) % Plt Count 209 D (160-400) X10*3/uL MPV 10.4 (9.4-12.3) fL Immature Gran % (Auto) 0.2 (0.0-0.4) % Neut % (Auto) 50.9 (45-73) % Lymph % (Auto) 38.0 (20-40) % [place] % (Auto) 8.5 (2-11) % Eos % (Auto) 1.6 (0-4) % Baso % (Auto) 0.8 (0-2) % Lymph # (Auto) 1.9 (1.2-4.9) X10*3/uL [place] # (Auto) 0.4 (0.1-1.2) X10*3/uL Eos # (Auto) 0.1 (0.0-0.4) X10*3/uL Baso # (Auto) 0.0 (0.0-0.2) X10*3/uL Abs Immat Gran (auto) 0.01 (0.00-0.03) X10*3/uL Absolute Neuts (auto) 2.6 (2.0-8.3) x10*3/uL Absolute Nucleated RBC 0.000 (0.0-0.012) X10*3/uL Nucleated RBC % (auto) 0.0 (0.0-0.2) /100WBC Sodium (135-145) mmol/L Potassium (3.3-5.1) mmol/L Chloride (96-108) mmol/L Carbon Dioxide (22-29) mmol/L Anion Gap (12-20) BUN (9-16) mg/dL Creatinine (0.5-1.4) mg/dL Estim Creat Clear Calc Estimated GFR Random Glucose (60-115) mg/dL Calcium (8.4-10.2) mg/dL Total Bilirubin (0.0-1.0) mg/dL AST (5-31) U/L ALT (0-31) U/L Alkaline Phosphatase (39-117) U/L Total Protein (6.5-8.0) g/dL Albumin (3.5-5.0) g/dL Beta HCG, Quant mIU/mL A.phagocytophil DNA PCR (NOT DETECTED) Babesia microti DNA PCR (NOT DETECTED) Borrelia sp DNA (PCR) (NOT DETECTED) Lyme Screen IgG & IgM index Lyme Progressive Test Borrelia miyamotoi (PCR) (NOT DETECTED) E.chaffeensis DNA (PCR) (NOT DETECTED) Tick-borne Disease Ab <Maggy Adams Robbin, PHYSICAL THERAPY TEACHER - Last Filed: 01/05/23 17:02> Lab Results 01/02/23 01/02/23 01/02/23 Range/Units 12:13 12:13 12:13 WBC (4.8-10.8) X10*3/uL RBC (4.20-5.50) X10*6/uL Hgb (12.0-16.0) g/dl Hct (37.0-47.0) % MCV (80.0-98.0) fL MCH (27.0-33.0) pg MCHC (31.0-35.0) g/dl RDW (11.0-16.0) % Plt Count (160-400) X10*3/uL MPV (9.4-12.3) fL Immature Gran % (Auto) (0.0-0.4) % Neut % (Auto) (45-73) % Lymph % (Auto) (20-40) % [place] % (Auto) (2-11) % Eos % (Auto) (0-4) % Baso % (Auto) (0-2) % Lymph # (Auto) (1.2-4.9) X10*3/uL [place] # (Auto) (0.1-1.2) X10*3/uL Eos # (Auto) (0.0-0.4) X10*3/uL Baso # (Auto) (0.0-0.2) X10*3/uL Abs Immat Gran (auto) (0.00-0.03) X10*3/uL Absolute Neuts (auto) (2.0-8.3) x10*3/uL Absolute Nucleated RBC (0.0-0.012) X10*3/uL Nucleated RBC % (auto) (0.0-0.2) /100WBC Sodium 142 (135-145) mmol/L Potassium 4.4 (3.3-5.1) mmol/L Chloride 109 H (96-108) mmol/L Carbon Dioxide 24 (22-29) mmol/L Anion Gap 13 (12-20) BUN 6 L (9-16) mg/dL Creatinine 0.88 (0.5-1.4) mg/dL Estim Creat Clear Calc 77.2 Estimated GFR > 60 Random Glucose 97 (60-115) mg/dL Calcium 9.4 (8.4-10.2) mg/dL Total Bilirubin 0.5 (0.0-1.0) mg/dL AST 13 (5-31) U/L ALT 9 (0-31) U/L Alkaline Phosphatase 33 L (39-117) U/L Total Protein 7.1 (6.5-8.0) g/dL Albumin 4.5 (3.5-5.0) g/dL Beta HCG, Quant < 2 mIU/mL A.phagocytophil DNA PCR NOT DETECTED (NOT DETECTED) Babesia microti DNA PCR NOT DETECTED (NOT DETECTED) Borrelia sp DNA (PCR) NOT DETECTED (NOT DETECTED) Lyme Screen IgG & IgM <0.90 index Lyme Progressive Test TNP Borrelia miyamotoi (PCR) NOT DETECTED (NOT DETECTED) E.chaffeensis DNA (PCR) NOT DETECTED (NOT DETECTED) Tick-borne Disease Ab SEE NOTE 01/02/23 Range/Units 12:13 WBC 5.0 (4.8-10.8) X10*3/uL RBC 4.25 (4.20-5.50) X10*6/uL Hgb 13.9 (12.0-16.0) g/dl Hct 41.2 (37.0-47.0) % MCV 96.9 (80.0-98.0) fL MCH 32.7 (27.0-33.0) pg MCHC 33.7 (31.0-35.0) g/dl RDW 12.6 (11.0-16.0) % Plt Count 209 D (160-400) X10*3/uL MPV 10.4 (9.4-12.3) fL Immature Gran % (Auto) 0.2 (0.0-0.4) % Neut % (Auto) 50.9 (45-73) % Lymph % (Auto) 38.0 (20-40) % [place] % (Auto) 8.5 (2-11) % Eos % (Auto) 1.6 (0-4) % Baso % (Auto) 0.8 (0-2) % Lymph # (Auto) 1.9 (1.2-4.9) X10*3/uL [place] # (Auto) 0.4 (0.1-1.2) X10*3/uL Eos # (Auto) 0.1 (0.0-0.4) X10*3/uL Baso # (Auto) 0.0 (0.0-0.2) X10*3/uL Abs Immat Gran (auto) 0.01 (0.00-0.03) X10*3/uL Absolute Neuts (auto) 2.6 (2.0-8.3) x10*3/uL Absolute Nucleated RBC 0.000 (0.0-0.012) X10*3/uL Nucleated RBC % (auto) 0.0 (0.0-0.2) /100WBC Sodium (135-145) mmol/L Potassium (3.3-5.1) mmol/L Chloride (96-108) mmol/L Carbon Dioxide (22-29) mmol/L Anion Gap (12-20) BUN (9-16) mg/dL Creatinine (0.5-1.4) mg/dL Estim Creat Clear Calc Estimated GFR Random Glucose (60-115) mg/dL Calcium (8.4-10.2) mg/dL Total Bilirubin (0.0-1.0) mg/dL AST (5-31) U/L ALT (0-31) U/L Alkaline Phosphatase (39-117) U/L Total Protein (6.5-8.0) g/dL Albumin (3.5-5.0) g/dL Beta HCG, Quant mIU/mL A.phagocytophil DNA PCR (NOT DETECTED) Babesia microti DNA PCR (NOT DETECTED) Borrelia sp DNA (PCR) (NOT DETECTED) Lyme Screen IgG & IgM index Lyme Progressive Test Borrelia miyamotoi (PCR) (NOT DETECTED) E.chaffeensis DNA (PCR) (NOT DETECTED) Tick-borne Disease Ab <CB Rucker - Last Filed: 01/05/23 11:39> Discharge Plan Discharge Clinical Impression: Facial paresthesia <Maggy Siegel CNP - Last Filed: 01/05/23 17:02> Patient Disposition: Home, Self-Care <Maggy Siegel CNP - Last Filed: 01/05/23 17:02> Additional Instructions: The facial tingling could be from her migraine, could be from anxiety, or even possibly Lyme disease so we are checking that and will have a resultant a few days We are not sure what is causing the tingling but it is not a stroke and it does not appear to be anything dangerous or concerning at this time If symptoms continue follow with primary doctor, if you develop any thing worse such as weakness, lack of symmetry and your face, confusion, loss of balance, weakness on 1 side of the body return to the ER any time We will call you if Lyme testing is positive <Maggy Siegel CNP - Last Filed: 01/05/23 17:02> Stand Alone Forms: Work/School Release <Maggy Siegel CNP - Last Filed: 01/05/23 17:02> Interventions: ED Discharge Assessment Last Done: 01/02/23 16:29 <Maggy Siegel CNP - Last Filed: 01/05/23 17:02> Discharge Date/Time: 01/02/23 16:29 <Maggy Siegel CNP - Last Filed: 01/05/23 17:02>
[2023-01-02 12:19] LABS: MANUAL DIFF FLAG NO
[2023-01-02 12:21] LABS: Basophils Percent Auto 0.8 % (0-2); Eosinophils Absolute Auto 0.1 X10*3/uL (0.0-0.4); Eosinophils Percent Auto 1.6 % (0-4); Hematocrit 41.2 % (37.0-47.0); Hemoglobin 13.9 g/dl (12.0-16.0); Imm Gran Abs Auto 0.01 X10*3/uL (0.00-0.03); Imm Gran Pct Auto 0.2 % (0.0-0.4); Lymphocytes Absolute Auto 1.9 X10*3/uL (1.2-4.9); Mean Corpuscular HGB Conc 33.7 g/dl (31.0-35.0); Mean Corpuscular Hemoglobin 32.7 pg (27.0-33.0); Mean Corpuscular Volume 96.9 fL (80.0-98.0); Mean Platelet Volume 10.4 fL (9.4-12.3); Monocytes Absolute Auto 0.4 X10*3/uL (0.1-1.2); Monocytes Percent Auto 8.5 % (2-11); Neutrophils Absolute Auto 2.6 x10*3/uL (2.0-8.3); Neutrophils Percent Auto 50.9 % (45-73); Platelet Count 209 X10*3/uL (160-400); Red Blood Count 4.25 X10*6/uL (4.20-5.50); Red Cell Distribution Width 12.6 % (11.0-16.0)
[2023-01-02 12:45] LABS: Alanine Aminotransferase 9 U/L (0-31); Albumin Level 4.5 g/dL (3.5-5.0); Alkaline Phosphatase 33 U/L (39-117); Anion Gap 13 (12-20); Aspartate Amino Transferase 13 U/L (5-31); Bilirubin Total 0.5 mg/dL (0.0-1.0); Blood Urea Nitrogen 6 mg/dL (9-16); Calcium 9.4 mg/dL (8.4-10.2); Carbon Dioxide 24 mmol/L (22-29); Chloride 109 mmol/L (96-108); Creatinine Clr Calc Pharmacy 77.2; Estimated Glomerular Filt Rate > 60; Glucose Random 97 mg/dL (60-115); Potassium 4.4 mmol/L (3.3-5.1); Sodium 142 mmol/L (135-145); Total Protein 7.1 g/dL (6.5-8.0)
[2023-01-02 12:46] LABS: HCG Quantitative < 2 mIU/mL
[2023-01-02 14:27] VITALS: BP 104/66; PULSE 50; RESP 18; TEMP 36.8; O2SAT 99
[2023-01-04 08:30] LABS: Lyme Abs Screen <0.90 index
[2023-01-05 01:09] LABS: A. Phagocytphilium DNA,RT-PCR NOT DETECTED (NOT DETECTED); Babesia Microti DNA, RT-PCR NOT DETECTED (NOT DETECTED); Borrelia Miyamotoi,DNA RT-PCR NOT DETECTED (NOT DETECTED); E.Chaffeensis DNA RT-PCR NOT DETECTED (NOT DETECTED); Lyme(Borrelia ssp)DNA RT-PCR NOT DETECTED (NOT DETECTED)
== END 2023-01-02 16:29 | disposition home or self-care (01) ==
PROVIDERS: Nurse Practitioner Family; Emergency Provider Student in an Organized Health Care Education/Training Program; PCP Internal Medicine
DX: R20.0 Anesthesia of skin (principal); R51.9 Headache, unspecified
CPT/HCPCS: 36415; 70450; 80053; 84702; 85025; 86617; 86618; 87798; 87801; 99282; 99284

== ENCOUNTER 2023-02-03 14:40 | Emergency (ER) | payer OTHER, SELFPAY ==
--- NOTE | ~2023-02-03 | CT_ITS ---
EXAMINATION: CT ABDOMEN AND PELVIS WITH CONTRAST CLINICAL INFORMATION: Bilateral lower quadrant pain. COMPARISON: CT scan of the abdomen and pelvis dated 12/21/2020. TECHNIQUE: Multidetector volumetric images were obtained from the superior aspect of the liver through the pubic symphysis following administration 85 mL of Omnipaque 350 intravenous contrast. Sagittal and coronal reformatted images were obtained on the technologist's workstation. Oral contrast: No This CT examination was performed using dose optimization techniques as appropriate, variously including the following: *Automated exposure control *Adjustment of mA and/or kV according to patient size (this includes techniques or standardized protocols for targeted exams where dose is matched to indication/reason for exam; i.e. extremities or head) *Use of iterative reconstruction technique DLP: 516 mGy-cm FINDINGS: LUNG BASES: The visualized lung bases are unremarkable. LIVER, GALLBLADDER, AND BILIARY TREE: Several noncalcified, fluid attenuation cysts are seen, the largest of which measures 2.0 cm in AP dimension (image 8, series 3). The gallbladder and biliary tree are unremarkable. PANCREAS: Unremarkable. SPLEEN: Unremarkable. ADRENAL GLANDS: Unremarkable. KIDNEYS AND URETERS: The kidneys are normal in size, shape, and attenuation. No hydronephrosis, hydroureter, or calculi seen. No perinephric stranding. BLADDER: Unremarkable. GASTROINTESTINAL TRACT: The stomach and small bowel unremarkable. No evidence for acute appendicitis. The colon and rectum are unremarkable. ABDOMINAL WALL: No significant hernia is appreciated. LYMPH NODES: No lymphadenopathy. VASCULAR: Unremarkable. PELVIC VISCERA: Anteverted/anteflexed with IUD in place without abnormality. No significant adnexal abnormality. OSSEOUS STRUCTURES: Unremarkable. CT/CT abdomen pelvis w IV con IMPRESSION: 1. No acute intra-abdominal/pelvic abnormality to explain the patient's pain. 2. Hepatic cysts demonstrate benign features without significant change.
--- NOTE | 2023-02-03 15:37 | ED_ITS ---
HPI - Abdominal Pain General Chief Complaint: Abdominal Pain Stated Complaint: abd pain sent from urgent care Time Seen by Provider: 02/03/23 15:21 History of Present Illness HPI narrative: 37 year female past medical history of ovarian cyst presents emergency department for complaints of lower abdominal pain. She states she has previously seen at an urgent care center and diagnosed with the urinary tract infection, however; they were unable to do any imaging. She reports abdominal pain has been getting progressively worse. She describes the pain as sharp and constant, 8/10. She states she has not taken any [id number] analgesics as Tylenol ?does not work? and ibuprofen exacerbates IBS symptoms. She denies any irregular vaginal bleeding, vaginal discharge, or odor. She denies dysuria or malodorous urine, she denies fever, chills, diarrhea, constipation, headache or vision changes. Related Data Allergies Allergy/AdvReac Type Severity Reaction Status Date / Time morphine Allergy Intermediate urticaria Verified 02/12/22 08:23 drospirenone [From JESSE (28)] Allergy Unknown UNKNOWN Verified 02/12/22 08:23 ethinyl estradiol Allergy Unknown UNKNOWN Verified 02/12/22 08:23 [From JESSE (28)] Penicillins [PENICILLINS] Allergy Unknown HIVES Verified 02/12/22 08:23 metronidazole Allergy Chills Verified 02/12/22 08:23 Review of Systems Review of Systems Pertinent positives and negatives discussed HPI. [facility] Past Medical History Medical History Idiopathic intracranial hypertension Intractable headache Migraines Vertigo Social History Social History Alcohol intake: never Substance Use Type: Marijuana Advance Directives: No Advance Directives Information Provided: No Physical Exam ED Vital Signs: Vital Signs - 24 hr 02/03/23 15:38 Temperature 98.1 F Pulse Rate 67 Respiratory Rate 18 Blood Pressure 111/67 Pulse Oximetry 98 Oxygen Delivery Method Room Air BMI result Body Mass Index 28.3 Nursing notes and vital signs reviewed. GENERAL APPEARANCE: A&0 x 4, generally well appearing, no acute distress HENMT: Normal to inspection, atraumatic, face symmetrical. Normal external ears, nose, and oropharynx clear. EYE: PERRLA, EOM intact, structures appear normal NECK: Supple without lymphadenopathy. No stiffness or restricted ROM. CHEST: Normal to inspection HEART: Normal rate and regular rhythm, normal S1/S2, no M/R/G LUNGS: LS CTA, moving air well. Able to speak in complete sentences. No crackles, wheezes, or rhonchi auscultated ABDOMEN: Soft, nondistended. Normal bowel sounds noted. Tender to palpation in lower abdominal quadrants. BACK: No CVAT, no obvious deformity EXTREMITIES: Moving all extremities without difficulty. No cyanosis, clubbing, or edema. Normal capillary refill. NEUROLOGICAL: Alert and oriented, moving all 4 extremities with equal strength. CN not formally tested but appearing grossly intact. Observed to ambulate with normal gait. Cognition normal SKIN: Warm and dry without any lesions, rash, or visible sores PSYCH: Cooperative, normal affect, normal thought process Medical Decision Making Medical Decision Making MDM Narrative: 1530: Patient was assessed the emergency department. No acute distress or toxicity noted. Patient is A&O x4, LS CTA, HORTA x4 with good strength. Based on HPI and PE plan for blood work, UA and culture, and CT abdomen pelvis to rule out intra-abdominal pathology as cause of patient's pain. Tylenol and Toradol offered and declined. 1610: Hematology unremarkable showing no signs of leukocytosis, thrombocytopenia, or anemia. Chemistries unremarkable. CT pending 1630: Urine negative for , UA showing trace blood, rbc's, and wbc's with trace bacteria. Plan for patient to continue antibiotics until culture is complete. 1700: I have independently evaluated the CT abdomen pelvis showing no signs of acute intra-abdominal/pelvic abnormalities to explain pain. Hepatic cysts with benign features found incidentally. 1715: Keflex prescribed by urgent care. Plan to start Keflex here in the emergency department for patient to continue outpatient. Patient is safe for discharge at this time with plan for [id number] Tylenol and/or NSAID such as ibuprofen or naproxen for fever/discomfort with dosing as per packaging. HPI, PE, diagnostics, and plan discussed with patient and family with no unanswered questions at this time. Strict return precautions given to return to the emergency department with new, worsening, or concerning emergent symptoms. Recommended to follow-up with there primary care provider in 24-48 hours for further treatment and management. Lab Data 02/03/23 15:48 02/03/23 15:48 Labs: Lab Results 02/03/23 02/03/23 02/03/23 Range/Units 15:48 15:48 16:06 WBC 6.1 (4.8-10.8) X10*3/uL RBC 4.16 L (4.20-5.50) X10*6/uL Hgb 13.5 (12.0-16.0) g/dl Hct 40.4 (37.0-47.0) % MCV 97.1 (80.0-98.0) fL MCH 32.5 (27.0-33.0) pg MCHC 33.4 (31.0-35.0) g/dl RDW 12.5 (11.0-16.0) % Plt Count 217 (160-400) X10*3/uL MPV 10.2 (9.4-12.3) fL Immature Gran % (Auto) 0.3 (0.0-0.4) % Neut % (Auto) 55.2 (45-73) % Lymph % (Auto) 34.8 (20-40) % [place]arton % (Auto) 7.2 (2-11) % Eos % (Auto) 2.0 (0-4) % Baso % (Auto) 0.5 (0-2) % Lymph # (Auto) 2.1 (1.2-4.9) X10*3/uL [place] # (Auto) 0.4 (0.1-1.2) X10*3/uL Eos # (Auto) 0.1 (0.0-0.4) X10*3/uL Baso # (Auto) 0.0 (0.0-0.2) X10*3/uL Abs Immat Gran (auto) 0.02 (0.00-0.03) X10*3/uL Absolute Neuts (auto) 3.4 (2.0-8.3) x10*3/uL Absolute Nucleated RBC 0.000 (0.0-0.012) X10*3/uL Nucleated RBC % (auto) 0.0 (0.0-0.2) /100WBC Sodium 140 (135-145) mmol/L Potassium 4.1 (3.3-5.1) mmol/L Chloride 107 (96-108) mmol/L Carbon Dioxide 23 (22-29) mmol/L Anion Gap 14 (12-20) BUN 10 (9-16) mg/dL Creatinine 0.87 (0.5-1.4) mg/dL Estim Creat Clear Calc 78.9 Estimated GFR > 60 Random Glucose 86 (60-115) mg/dL Calcium 9.4 (8.4-10.2) mg/dL Total Bilirubin 0.4 (0.0-1.0) mg/dL Direct Bilirubin < 0.2 (0.0-0.5) mg/dL AST 12 (5-31) U/L ALT 7 (0-31) U/L Alkaline Phosphatase 34 L (39-117) U/L Total Protein 7.0 (6.5-8.0) g/dL Albumin 4.4 (3.5-5.0) g/dL Lipase 24 (8-78) U/L Urine Color Yellow Urine Appearance Cloudy Urine pH 5.0 (5.0-9.0) Ur Specific [place] >= 1.030 H (1.005-1.025) Urine Protein Negative (Neg-Trace) mg/dL Urine Glucose (UA) Negative (Negative) mg/dL Urine Ketones Trace (Negative) mg/dL Urine Blood Trace H (Negative) Urine Nitrite Negative (Negative) Ur Leukocyte Esterase Small (1+) H (Negative) Urine RBC 6-10 H (0-2) /HPF Urine WBC 6-10 H (0-5) /HPF Ur Squamous Epith Cells 6-10 (0-2) /HPF Urine Bacteria Trace (None Seen) Hyaline Casts 0-2 (0-2) /LPF Urine Test (NEGATIVE) 02/03/23 Range/Units 16:06 WBC (4.8-10.8) X10*3/uL RBC (4.20-5.50) X10*6/uL Hgb (12.0-16.0) g/dl Hct (37.0-47.0) % MCV (80.0-98.0) fL MCH (27.0-33.0) pg MCHC (31.0-35.0) g/dl RDW (11.0-16.0) % Plt Count (160-400) X10*3/uL MPV (9.4-12.3) fL Immature Gran % (Auto) (0.0-0.4) % Neut % (Auto) (45-73) % Lymph % (Auto) (20-40) % [place] % (Auto) (2-11) % Eos % (Auto) (0-4) % Baso % (Auto) (0-2) % Lymph # (Auto) (1.2-4.9) X10*3/uL [place] # (Auto) (0.1-1.2) X10*3/uL Eos # (Auto) (0.0-0.4) X10*3/uL Baso # (Auto) (0.0-0.2) X10*3/uL Abs Immat Gran (auto) (0.00-0.03) X10*3/uL Absolute Neuts (auto) (2.0-8.3) x10*3/uL Absolute Nucleated RBC (0.0-0.012) X10*3/uL Nucleated RBC % (auto) (0.0-0.2) /100WBC Sodium (135-145) mmol/L Potassium (3.3-5.1) mmol/L Chloride (96-108) mmol/L Carbon Dioxide (22-29) mmol/L Anion Gap (12-20) BUN (9-16) mg/dL Creatinine (0.5-1.4) mg/dL Estim Creat Clear Calc Estimated GFR Random Glucose (60-115) mg/dL Calcium (8.4-10.2) mg/dL Total Bilirubin (0.0-1.0) mg/dL Direct Bilirubin (0.0-0.5) mg/dL AST (5-31) U/L ALT (0-31) U/L Alkaline Phosphatase (39-117) U/L Total Protein (6.5-8.0) g/dL Albumin (3.5-5.0) g/dL Lipase (8-78) U/L Urine Color Urine Appearance Urine pH (5.0-9.0) Ur Specific [place] (1.005-1.025) Urine Protein (Neg-Trace) mg/dL Urine Glucose (UA) (Negative) mg/dL Urine Ketones (Negative) mg/dL Urine Blood (Negative) Urine Nitrite (Negative) Ur Leukocyte Esterase (Negative) Urine RBC (0-2) /HPF Urine WBC (0-5) /HPF Ur Squamous Epith Cells (0-2) /HPF Urine Bacteria (None Seen) Hyaline Casts (0-2) /LPF Urine Test NEGATIVE (NEGATIVE) Medications Administered Discontinued Medications Generic Name Dose Route Start Last Admin Trade Name Adanq PRN Reason Stop Dose Admin Iohexol 100 ml 02/03/23 16:29 02/03/23 16:30 Iohexol 350 Mg/Ml 100 Ml Infus..Btl IV 02/03/23 16:30 85 ml ONCE ONE Administration Discharge Plan Discharge Clinical Impression: Urinary tract infection Patient Disposition: Home, Self-Care Instructions: Urinary Tract Infection in Women (ED) Additional Instructions: Your seen in the emergency department for concerns lower abdominal pain. Your urine studies showed signs of urinary tract infection. An antibiotic was started fever here in the emergency department with history to continue antibiotic treatment at home an outpatient basis. Your CT scan was negative for any signs of acute disease. Benign liver cysts were noted. There is no emergent treatment needed for the cysts in you may follow-up with your primary care provider for further management of benign cysts. You are safe for discharge at this time with plan for management of fever or discomfort with [id number] Tylenol and/or NSAID such as ibuprofen or naproxen with dosing as per packaging. Please return to the emergency department with new, worsening, or concerning emergent symptoms. Recommended to follow-up with your primary care provider in 24-48 hours for further treatment and management. Thank you for choosing [facility]. Referrals: Howard Bergeron MD [Primary Care Provider] - Stand Alone Forms: Work/School Release Print Language: Burundian
[2023-02-03 15:38] VITALS: BP 111/67; PULSE 67; RESP 18; TEMP 36.7; O2SAT 98; BMI 28.3
[2023-02-03 15:51] LABS: MANUAL DIFF FLAG NO
[2023-02-03 15:53] LABS: Basophils Percent Auto 0.5 % (0-2); Eosinophils Absolute Auto 0.1 X10*3/uL (0.0-0.4); Hematocrit 40.4 % (37.0-47.0); Hemoglobin 13.5 g/dl (12.0-16.0); Imm Gran Abs Auto 0.02 X10*3/uL (0.00-0.03); Imm Gran Pct Auto 0.3 % (0.0-0.4); Lymphocytes Absolute Auto 2.1 X10*3/uL (1.2-4.9); Lymphocytes Percent Auto 34.8 % (20-40); Mean Corpuscular HGB Conc 33.4 g/dl (31.0-35.0); Mean Corpuscular Hemoglobin 32.5 pg (27.0-33.0); Mean Corpuscular Volume 97.1 fL (80.0-98.0); Mean Platelet Volume 10.2 fL (9.4-12.3); Monocytes Absolute Auto 0.4 X10*3/uL (0.1-1.2); Monocytes Percent Auto 7.2 % (2-11); Neutrophils Absolute Auto 3.4 x10*3/uL (2.0-8.3); Neutrophils Percent Auto 55.2 % (45-73); Platelet Count 217 X10*3/uL (160-400); Red Blood Count 4.16 X10*6/uL (4.20-5.50); Red Cell Distribution Width 12.5 % (11.0-16.0); White Blood Count 6.1 X10*3/uL (4.8-10.8)
--- OUTSIDE RECORDS SUMMARY | 2023-02-03 15:56 | XMS_ITS | Continuity of Care Document ---
:1985 Author Organization [facility] Address Unavailable , Care Team Providers Name Role Phone YamilaenricoMaia Martino DO Primary Care Physician [place] [facility] [place] [facility] Allergies, Adverse Reactions, Alerts Substance Reaction Severity Status penicillins rash Active drospirenone-ethinyl estradiol dizzy and nausea Active metroNIDAZOLE sweats and shakes Active Medications Colace sodium 100 mg oral capsule 100 mg, 1, capsule, By Mouth, 2 times a day, PRN, # 14 capsule, Refills 0, Tot. Refills 0, Maintenance, for constipation, 03/31/21 13:11:00 EDT, Route to Pharmacy Electronically, [id number], Partial fill upon patient request if the prescriptio... Start Date: 03/31/21 Stop Date: 04/07/21 Status: Orderedibuprofen 800 mg oral tablet 800 mg, 1, tablet, By Mouth, Every 8 hours, PRN, # 50 tablet, Refills 1, Tot. Refills 1, Maintenance, as needed for pain, 03/31/21 13:11:00 EDT, Route to Pharmacy Electronically, [id number], Partial fill upon patient request if the prescriptio... Start Date: 03/31/21 Status: OrderedoxyCODONE 5 mg oral tablet 5 mg, 1, tablet, By Mouth, Every 6 hours, PRN, # 10 tablet, Refills 0, Tot. Refills 0, Maintenance, as needed for pain, 03/31/21 13:11:00 EDT, Route to Pharmacy Electronically, [id number], Partial fill upon patient request if the prescription... Start Date: 03/31/21 Status: Orderedsimethicone 80 mg oral tablet 1 tablet = 80 mg, Chew, 3 times a day after meals and bedtime, PRN for gas, # 60 tablet, 0 Refills, Maintenance, 04/21/21 11:16:00 EDT, Tablet, [facility]/pharmacy #[id number], Partial fill upon patient request if the prescription is for a schedule II opioid drug.... Start Date: 04/21/21 Status: Ordered Problem List Condition Effective Dates Status Health Status Informant Pseudotumor cerebri(Confirmed) Active Irritable bowel syndrome Active (IBS)(Confirmed) Migraines(Confirmed) Active Anxiety and depression(Confirmed) Active Papilledema, right eye(Confirmed) Active Social History Social History Type Response Smoking Status Never (less than 100 in life time) entered on: 01/25/21 Sex
--- OUTSIDE RECORDS SUMMARY | 2023-02-03 15:56 | XMS_ITS | Continuity of Care Document ---
:1985 Author Organization [facility] Address [address] [place] [address]- Care Team Providers Name Role Phone Howard Bergeron MD Primary Care Physician Encounter [facility] Date(s): 06/01/22 - 06/01/[address] [address]- Discharge Disposition: A-D/C Home Attending Physician: Noble Zhong MD Admitting Physician: Noble Zhong MD Referring Physician: Not on Staff, Referring MD Allergies, Adverse Reactions, Alerts Substance Reaction Severity Status morphine Hives Active penicillins rash Active drospirenone-ethinyl estradiol dizzy and nausea Active metroNIDAZOLE sweats and shakes Active Medications Colace sodium 100 mg oral capsule 100 mg, 1, capsule, By Mouth, 2 times a day, PRN, # 14 capsule, Refills 0, Tot. Refills 0, Maintenance, for constipation, 03/31/21 13:11:00 EDT, Route to Pharmacy Electronically, [facility]/pharmacy #[id number], Partial fill upon patient request if the prescriptio... Start Date: 03/31/21 Stop Date: 04/07/21 Status: Orderedibuprofen 400 mg oral tablet 400 mg, 1, tablet, By Mouth, Every 6 hours, PRN, # 12 tablet, Refills 0, Tot. Refills 0, Maintenance, Pain , Moderate, 10/20/21 18:16:00 EST, Route to Pharmacy Electronically, [id number], Partial fill upon patient request if the prescription i... Start Date: 10/20/21 Status: Orderedondansetron 4 mg oral tablet, disintegrating 1 tablet = 4 mg, By Mouth, Every 8 hours, PRN as needed for nausea/vomiting, # 8 tablet, 0 Refills, Maintenance, 02/02/22 15:48:00 EDT, DIS Tablet, [id number], Partial fill upon patient requestif the prescription is for a schedule II opioid d... Start Date: 02/02/22 Status: Orderedondansetron 4 mg oral tablet, disintegrating 1 tablet = 4 mg, By Mouth, Every 8 hours, PRN as needed for nausea/vomiting, # 12 tablet, 0 Refills,Maintenance, 08/10/21 20:28:00 EDT, DIS Tablet, [facility]/pharmacy #[id number], Partial fill upon patient request if the prescription is for a schedule II opioid... Start Date: 08/10/21 Status: Orderedsimethicone 80 mg oral tablet 1 tablet = 80 mg, Chew, 3 times a day after meals and bedtime, PRN for gas, # 60 tablet, 0 Refills, Maintenance, 04/21/21 11:16:00 EDT, Tablet, [facility]/pharmacy #[id number], Partial fill upon patient request if the prescription is for a schedule II opioid drug.... Start Date: 04/21/21 Status: Ordered Problem List Condition Effective Dates Status Health Status Informant Pseudotumor cerebri(Confirmed) Active Irritable bowel syndrome Active (IBS)(Confirmed) Migraines(Confirmed) Active Anxiety and depression(Confirmed) Active Papilledema, right eye(Confirmed) Active Vital Signs Most recent to oldest [Reference Range]: 1 2 Height 154 cm 154 cm (06/01/22 12:27 PM) (06/01/22 10:23 AM) Weight 71.6 kg (06/01/22 10:23 AM) Oxygen Saturation [94-100 %] 100 % 100 % (06/01/22 12:27 PM) (06/01/22 10:33 AM) Pulse Rate [55-90 bpm] 48 bpm 62 bpm *L* (06/01/22 10:33 AM) (06/01/22 12:27 PM) Blood Pressure [90-138/55-84 mm Hg] 106/73 mm Hg 111/ 77 mm Hg (06/01/22 12:27 PM) (06/01/22 10:33 AM) Respiratory Rate [16-30 br/min] 18 br/min 18 br/mi n (06/01/22 12:27 PM) (06/01/22 10:33 AM) Temperature [96.8-100.4 DegF] 97.6 DegF (06/01/22 10:33 AM) Mode of Delivery (Oxygen) Room air Room air (06/01/22 12:27 PM) (06/01/22 10:33 AM) Blood pressure sites Arm, right Arm, right (06/01/22 12:27 PM) (06/01/22 10:33 AM) Temperature Route Temporal (06/01/22 10:33 AM) Dry Weight 71.6 kg (06/01/22 10:23 AM) Weight Obtained Via Standing scale (06/01/22 10:23 AM) Dry Weight Obtained Via Standing scale (06/01/22 10:23 AM) Social History Social History Type Response Smoking Status Former smoker, quit more sedrick n 30 days ago entered on: 10/20/21 Sex
--- OUTSIDE RECORDS SUMMARY | 2023-02-03 15:56 | XMS_ITS | Continuity of Care Document ---
:1985 Author Organization [facility] Address [address] [place] [address], [address] [place] [id number]- Care Team Providers Name Role Phone Maia Obregon DO Primary Care Physician [id number] Date(s): 04/18/21 - 04/25/21 [facility] [address] [facility], [address]th [address] [place] [address] Attending Physician: Christa Santoro MD Referring Physician: Maia Obregon DO Allergies, Adverse Reactions, Alerts Substance Reaction Severity Status penicillins rash Active drospirenone-ethinyl estradiol dizzy and nausea Active metroNIDAZOLE sweats and shakes Active Medications Colace sodium 100 mg oral capsule 100 mg, 1, capsule, By Mouth, 2 times a day, PRN, # 14 capsule, Refills 0, Tot. Refills 0, Maintenance, for constipation, 03/31/21 13:11:00 EDT, Route to Pharmacy Electronically, [facility]/pharmacy #[id number], Partial fill upon patient request if the prescriptio... Start Date: 03/31/21 Stop Date: 04/07/21 Status: Orderedibuprofen 800 mg oral tablet 800 mg, 1, tablet, By Mouth, Every 8 hours, PRN, # 50 tablet, Refills 1, Tot. Refills 1, Maintenance, as needed for pain, 03/31/21 13:11:00 EDT, Route to Pharmacy Electronically, [facility]/pharmacy #[id number], Partial fill upon patient request if the prescriptio... Start Date: 03/31/21 Status: OrderedoxyCODONE 5 mg oral tablet 5 mg, 1, tablet, By Mouth, Every 6 hours, PRN, # 10 tablet, Refills 0, Tot. Refills 0, Maintenance, as needed for pain, 03/31/21 13:11:00 EDT, Route to Pharmacy Electronically, [facility]/pharmacy #[id number], Partial fill upon patient request if the prescription... Start Date: 03/31/21 Status: Orderedsimethicone 80 mg oral tablet 1 tablet = 80 mg, Chew, 3 times a day after meals and bedtime, PRN for gas, # 60 tablet, 0 Refills, Maintenance, 04/21/21 11:16:00 EDT, Tablet, [facility]/pharmacy #[id number], Partial fill upon patient request if the prescription is for a schedule II opioid drug.... Start Date: 04/21/21 Status: OrderedZofran 4 mg oral tablet 1 tablet = 4 mg, By Mouth, 2 times a day, PRN as needed for nausea/vomiting, for 10 days, Take 30 min prior to Doxycycline, # 20 tablet, 0 Refills, Acute 05/01/21 11:15:00 EDT, 04/21/21 11:15:00 EDT, Tablet, [facility]/pharmacy #[id number], Partial fill upon patie... Start Date: 04/21/21 Stop Date: 05/01/21 Status: Ordered Problem List Condition Effective Dates Status Health Status Informant Pseudotumor cerebri(Confirmed) Active Irritable bowel syndrome Active (IBS)(Confirmed) Migraines(Confirmed) Active Anxiety and depression(Confirmed) Active Papilledema, right eye(Confirmed) Active Vital Signs Most recent to oldest [Reference Range]: 1 Height 155 cm (04/18/21 8:35 AM) Weight 67.5 kg (04/18/21 8:35 AM) Pulse Rate [55-90 bpm] 67 bpm (04/18/21 8:35 AM) Body Mass Index [18.5-24.99] 28.1 *H* (04/18/21 8:35 AM) Blood Pressure [90-138/55-84 mm Hg] 102/63 mm Hg (04/18/21 8:35 AM) Temperature [96.8-100.4 DegF] 98.3 DegF (04/18/21 8:35 AM) Social History Social History Type Response Smoking Status Never (less than 100 in life time) entered on: 01/25/21 Sex
--- OUTSIDE RECORDS SUMMARY | 2023-02-03 15:56 | XMS_ITS ---
:1985 Author Care Team Providers Name Role Phone Anderson Mitchell Primary Care Provider Unavailable Allergies Code Code System Name Reaction Severity Status Onset 7052 RxNorm Morphine Rash ? Active ? Penicillins Rash ? Active ? Notes: some controls Medications Name Status Start Date Stop Date ? ? acetazolamide ER 500 mg capsule,extended release Active ? Not available TAKE 1 CAPSULE BY MOUTH TWICE A DAY FOR 30 DAYS [id number]-[id number]-waaycjsn 50 mg-325 mg-40 mg tablet Acti ve ? Not available TAKE 1-2 TABLETS BY MOUTH DAILY NEEDED FOR HEADACHE FOR 30 D AYS cephalexin 500 mg tablet Active ? Not cesar ilable Take 1 tablet every 8 hours by oral route with meals for 7 days . cetirizine 10 mg tablet Active ? Not avai lable TAKE 1 TABLET BY MOUTH EVERY DAY cyclobenzaprine 10 mg tablet Completed ? TAKE 1 TABLET BY MOUTH 2 TIMES DAILY NEEDED FOR MUSCLE SPASMS FOR UP TO 10 DAYS. docusate sodium 100 mg capsule Active ? N ot available TAKE 1 CAPSULE BY MOUTH TWICE A DAY FOR 7 DAYS NEEDED CONSTI PATION guanfacine ER 1 mg tablet,extended release 24 hr Completed ? 02/03/2023 TAKE 1 TABLET BY MOUTH EVERY DAY IN THE MORNING loperamide 2 mg capsule Active ? Not avai lable TAKE 1 CAPSULE BY MOUTH 4 TIMES DAILY NEEDED FOR DIARRHEA. nabumetone 750 mg tablet Completed ? 023 TAKE 1 TABLET BY MOUTH TWICE A DAY FOR 10 DAYS ondansetron 8 mg disintegrating tablet Completed ? 02/03/2023 TAKE 1 TABLET BY MOUTH EVERY 8 HOURS NEEDED FOR NAUSEA ondansetron HCl 4 mg tablet Active ? Not available TAKE 1 TABLET BY MOUTH EVERY 8 HOURS NEEDED FOR NAUSEA pantoprazole 40 mg tablet,delayed release Active ? Not available TAKE 1 TABLET BY MOUTH EVERY DAY NEEDED FOR HEARTBURN prednisone 20 mg tablet Completed ? 02/04/20 23 TAKE 2 TABLETS BY MOUTH EVERY DAY FOR 5 DAYS [employer] At-Home COVID-19 Test kit Completed ? 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 Not avail able TAKE 1/2 TABLET BY MOUTH TWICE A DAY Problems Name Status Onset Date Source ? Bipolar Disorder Active 02/03/2023 ? Anxiety Active 02/03/2023 ? Migraine Active 02/03/2023 ? Acid Reflux Active 02/03/2023 ? Irritable Bowel Syndrome Active 02/03/2023 ? Procedures Notes: procedure to c/o endometriosis -03/2020 Results Lab Results Date Name Specimen Result Interpretation Description Value Range Status Address ? 02/03/2023 Urinalysis, ? Reference Normal = ? ? [facility]: Dipstick Range Color light [address], yellow [place] ? ? ? Reference Normal = ? ? 2099 5[facility]: Range Clarity clear [address], [place] ? ? ? Reference Normal = ? ? 2100 03[facility]: Range Glucose negative [address], [place] ? ? ? Reference Normal = ? ? 2099 5[facility]: Range Negative [address], Bilirubin [place] ? ? ? Reference Normal = ? ? 2100 03[facility]: Range Ketones Negative [address], [place] ? ? ? Reference Normal = ? ? 2099 5[facility]: Range Specific 1.010, [address], [place] 1.015, [place] 1.020 ? ? ? Reference Normal = ? ? 2099 5[facility]: Range Blood Negative [address], [place] ? ? ? Reference Normal = ? ? 2099 5[facility]: Range pH 6.5, 7.0, [address], 7.5, 8.0 [place] ? ? ? Reference Normal = ? ? 2099 5[facility]: Range Protein Negative [address], [place] ? ? ? Reference Normal = ? ? 2099 5[facility]: Range 0.2, 1.[address], Urobilinogen [place] ? ? ? Reference Normal = ? ? 2099 5[facility]: Range Nitrites Negative [address], [place] ? ? ? Reference Normal = ? ? 2100 03[facility]: Range Negative [address], Leukocytes [place] ? ? ? Result Color Yellow ? ? 05[facility]: [address], [place] ? ? ? Result Clear ? ? [facility]: Clarity [address], [place] ? ? ? Result Negative ? ? [facility]: Glucose [address], [place] ? ? ? Result Small ? ? [facility]: Bilirubin [address], [place] ? ? ? Result Negative ? ? [facility]: Ketones [address], [place] ? ? ? Result 1.030 ? ? [facility]: Specific [address], [place] ? ? ? Result Blood Small ? ? [facility]: [address], [place] ? ? ? Result pH 5.5 ? ? _ [facility]: [address], [place] ? ? ? Result Negative ? ? c [facility]: Protein [address], [place] ? ? ? Result 0.2 ? ? [facility]: Urobilinogen E.U./dL [address], [place] ? ? ? Result Negative ? ? _[facility]: Nitrites [address], [place] ? ? ? Result Trace ? ? [facility]: Leukocytes [address], [place] 02/03/2023 ? Reference Normal = ? ? [facility]: Test, Urine Range Urine Negative [address], [place] ? ? ? Result Urine negative ? ? 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 05/07/2022_Aracely alDr: [address] [facility] [place] [address], Ph. [phone] 12/21/2021_[address]: [address] [place] [address], Ph. Social History Tobacco Smoking Status Former Smoker Vaccine List None recorded. Plan of Care Patient Instructions Abdominal pain can have a wide variety of causes. we cannot totally exclude the possibility of your symptoms being due a serious underlying problem. Unless ALL of your symptoms have COMPLETELY resolved, you should follow up at the nearest Emergency Department in 6 hours to be rechecked. I f your pain worsens, you should not hesitate to go to the Emergency Department to hav e your condition further evaluated. You should also follow up immediately if you develop any new symptoms which concern you, such as fever, nausea, vomiting, rectal bleeding, or any other symptom that concerns you. Failure to follow up as instructed above may result in serious adverse health consequences, including permanent disabi lity or . Reminders Provider Appointments None recorded. ? ? Lab None recorded. ? ? Referral None recorded. ? ? Procedures None recorded. ? ? Surgeries None recorded. ? ? Imaging None recorded. ? ? Vitals Height Weight BMI Blood Pressure 5 ft 1 in 150 lbs 28.3 kg/m2 107/71 mm[Hg]
--- OUTSIDE RECORDS SUMMARY | 2023-02-03 15:56 | XMS_ITS | Continuity of Care Document ---
:1985 Author Organization [facility] Address [address] [facility] 4th Floor [address] [place] [phone] Care Team Providers Name Role Phone Maia Obregon DO Primary Care Physician [place] [facility] [place] 04/18/21 - 05/18/21 [facility] [address] [facility] [place] [id number] Attending Physician: Admemely, Leander8 Admitting Physician: Admtr, Ar8 Referring Physician: Admtr, Ar8 Allergies, Adverse Reactions, Alerts Substance Reaction Severity Status penicillins rash Active drospirenone-ethinyl estradiol dizzy and nausea Active metroNIDAZOLE sweats and shakes Active Medications Colace sodium 100 mg oral capsule 100 mg, 1, capsule, By Mouth, 2 times a day, PRN, # 14 capsule, Refills 0, Tot. Refills 0, Maintenance, for constipation, 03/31/21 13:11:00 EDT, Route to Pharmacy Electronically, [facility]/pharmacy #[id number], Partial fill upon patient request if the prescriptio... Start Date: 03/31/21 Stop Date: 04/07/21 Status: Orderedibuprofen 800 mg oral tablet 800 mg, 1, tablet, By Mouth, Every 8 hours, PRN, # 50 tablet, Refills 1, Tot. Refills 1, Maintenance, as needed for pain, 03/31/21 13:11:00 EDT, Route to Pharmacy Electronically, [facility]/pharmacy #[id number], Partial fill upon patient request if the prescriptio... Start Date: 03/31/21 Status: OrderedoxyCODONE 5 mg oral tablet 5 mg, 1, tablet, By Mouth, Every 6 hours, PRN, # 10 tablet, Refills 0, Tot. Refills 0, Maintenance, as needed for pain, 03/31/21 13:11:00 EDT, Route to Pharmacy Electronically, [facility]/pharmacy #[id number], Partial fill upon patient request if the prescription... Start Date: 03/31/21 Status: Orderedsimethicone 80 mg oral tablet 1 tablet = 80 mg, Chew, 3 times a day after meals and bedtime, PRN for gas, # 60 tablet, 0 Refills, Maintenance, 04/21/21 11:16:00 EDT, Tablet, [facility]/pharmacy #[id number], Partial fill upon patient [...]
--- OUTSIDE RECORDS SUMMARY | 2023-02-03 15:56 | XMS_ITS | Encounter Summary ---
:1985 Author Reason for Visit Abdominal Pain* abd pain x 3 days. Denies nausea, vomiti ng ,diarrhea. Denies urinary symptoms. Has had this type of pain in the past. Denies chance of . History of IBS Assessment and Plan 1. Abdominal pain ? test, urine ? urinalysis, dipstick ? emergency medicine referral - Lower a bdominal pain, tender on RLQ x 3 days. complex history including ovarian cyst, diarrhea and currently running UTI. need further evaluation and treatment. 2. Urinary tract infectious disease ? cephalexin 500 mg tablet ? culture, urine ? Urinary Tract Infection (UTI) in [place]: Care Instructions Discussion Note We recommend you get a repeat urinalysi s in 2 weeks to ensure that any abnormalities have resolved. If urine abnormalities persist, you will likely need further testing or treatment. We will contact you within 3 to 5 days w ith the results of your lab test. If you have not heard back from us within that time frame, please feel free to contact our office regarding your results. Go to the Emergency Department immediate ly if your symptoms worsen or if you develop new symptoms that concern you. Drink plenty of fluids You should follow-up with your PCP in 4- 5 days, or at any time if your condition does not improve or worsens. Any acute change should prompt a visit to the nearest Emergency Department. Plan of Care Patient Instructions Abdominal pain [...] Provider Appointments None recorded. ? ? Lab Test, Urine 02/03/2023[facility] ? Urinalysis, Dipstick 02/03/2023[facility] ? Culture, Urine 02/03/2023 [facility] ([place]) Referral Emergency Medicine Referral 02/03/2023 [facility] Procedures None recorded. ? ? Surgeries None recorded. ? ? Imaging None recorded. ? ? Medications Name Start Date ? ? acetazolamide ER 500 mg capsule,extended release ? TAKE 1 CAPSULE BY MOUTH TWICE A DAY FOR 30 DAYS nfwafacqzs-ouafoumlvimnd-indhmwgt 50 mg-325 mg-40 mg t ablet ? TAKE 1-2 TABLETS BY MOUTH DAILY NEEDED FOR HEADACH E FOR 30 DAYS cephalexin 500 mg tablet ? Take 1 tablet every 8 hours by oral route with meals for 7 days. cetirizine 10 mg tablet ? TAKE 1 TABLET BY MOUTH EVERY DAY docusate sodium 100 mg capsule ? TAKE 1 CAPSULE BY MOUTH TWICE A DAY FOR 7 DAYS NEE DED CONSTIPATION loperamide 2 mg capsule ? TAKE 1 CAPSULE BY MOUTH 4 TIMES DAILY NEEDED FOR D IARRHEA. ondansetron HCl 4 mg tablet ? TAKE 1 TABLET BY MOUTH EVERY 8 HOURS NEEDED FOR NA USEA pantoprazole 40 mg tablet,delayed release ? TAKE 1 TABLET BY MOUTH EVERY DAY NEEDED FOR HEARTB URN Rexulti 0.25 mg tablet ? TAKE 1/2 TABLET BY MOUTH TWICE A DAY Medications Administered None recorded. Vitals Height Weight BMI Blood Pressure 5 ft 1 in 150 lbs 28.3 kg/m2 107/71 mm[Hg] Results Lab Results Date Name Specimen Result Interpretation Description Value Range Status Address ? 02/03/2023 Urinalysis, ? Reference Normal = ? ? [facility]: Dipstick Range Color light [address], yellow [place] ? ? ? Reference Normal = ? ? 2100 03[facility]: Range Clarity clear [address], [place] ? ? ? Reference Normal = ? ? 2100 03[facility]: Range Glucose negative [address], [place] ? ? ? Reference Normal = ? ? 2100 03[facility]: Range Negative [address], Bilirubin [place] ? ? ? Reference Normal = ? ? 2100 03[facility]: Range Ketones Negative [address], [place] ? ? ? Reference Normal = ? ? 2100 03[facility]: Range Specific 1.010, [address], [place] 1.015, [place] 1.020 ? ? ? Reference Normal = ? ? 2100 03[facility]: Range Blood Negative [address], [place] ? ? ? Reference Normal = ? ? 2100 03[facility]: Range pH 6.5, 7.0, [address], 7.5, 8.0 [place] ? ? ? Reference Normal = ? ? 2100 03[facility]: Range Protein Negative [address], [place] ? ? ? Reference Normal = ? ? 2100 03[facility]: Range 0.2, 1.[address], Urobilinogen [place] ? ? ? Reference Normal = ? ? 2100 03[facility]: Range Nitrites Negative [address], [place] ? ? ? Reference Normal = ? ? 2100 03[facility]: Range Negative [address], Leukocytes [place] ? ? ? Result Color Yellow ? ? [facility]: [address], [place] ? ? ? Result Clear ? ? _[facility]: Clarity [address], [place] ? ? ? Result Negative ? ? _[facility]: Glucose [address], [place] ? ? ? Result Small ? ? _[facility]: Bilirubin [address], [place] ? ? ? Result Negative ? ? _[facility]: Ketones [address], [place] ? ? ? Result 1.030 ? ? [facility]: Specific [address], [place] ? ? ? Result Blood Small ? ? [facility]: [address], [place] ? ? ? Result pH 5.5 ? ? _ [facility]: [address], [place] ? ? ? Result Negative ? ? c [facility]: Protein [address], [place] ? ? ? Result 0.2 ? ? [facility]: Urobilinogen E.U./dL [address], [place] ? ? ? Result Negative ? ? _[facility]: Nitrites [address], [place] ? ? ? Result Trace ? ? [facility]: Leukocytes [address], [place] 02/03/2023 ? Reference Normal = ? ? [facility]: Test, Urine Range Urine Negative [address], [place] ? ? ? Result Urine negative ? ? 2 1005[facility]: [address], [place] Allergies Code Code System Name Reaction Severity Onset 7052 RxNorm Morphine Rash ? ? Penicillins Rash ? ? Notes: some controls Problems Name Status Onset Date Source ? Bipolar Disorder Active 02/03/2023 ? Anxiety Active 02/03/2023 ? Migraine Active 02/03/2023 ? Acid Reflux Active 02/03/2023 ? Irritable Bowel Syndrome Active 02/03/2023 ? Procedures Notes: procedure to c/o endometriosis -03/2020 Vaccine List None recorded. Social History Tobacco Smoking Status Former Smoker What is your heat source? Other What is your level of alcohol consumption? None Do you or have you ever used any other forms of tobacco or N nicotine? Do you use any illicit or recreational drugs? N Have you had direct contact, or contact during intimacy, wit h N monkeypox rash, scabs, or body fluids from a person with mon keypox? Have you recently traveled abroad? N What is your water source? City Family History Relation Problem Onset Age of Age Notes Father No current problems or (No Information) N/A ( No Notes) disability Mother No current problems or (No Information) N/A ( No Notes) disability Functional Status Unknown. 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 History of Present Illness ? Abdominal Pain UC Reported By: Patient Abdominal Pain: source of patient informatio n Patient arrived at Urgent Care ambulatory, learning styles: auditory. Onset/Timing: better. Context: no travel. Associated Sympto ms: no fever, no chills, no blood in the urine, no heartburn, no shor tness of breath, no change in bowel/bladder habits. Other: denies possible Review of Systems ? UC Abdominal Pain Reported By: Patient Constitutional: Constitutional: no fever/chi lls, no night sweats, no significant weight loss ENMT: Ears no difficulty hearing, no ear pain. Nose: no nose/sinus problems. Mouth/Throat: no s ore throat, no mouth ulcers, no oral abnormalities, No hoars eness Cardiovascular: Cardiovascular: no chest izabel n, no arm pain on exertion, no shortness of breath when wal jluis, no shortness of breath when lying down, no palpitations Respiratory: Respiratory: no cough, no wh eezing, no shortness of breath, no coughing up blood, no conges tion in the chest, Not coughing up sputum Gastrointestinal: Gastrointestinal: no abdomin al pain, no nausea, no vomiting, normal appetite, no diarrhea , not vomiting blood Genitourinary: Genitourinary: no difficulty urinating, no hematuria, no increased frequency Musculoskeletal: Musculoskeletal: no muscle a ches, no muscle weakness, no arthralgias/joint pain, no b ack pain, no swelling in the extremities Neurologic: Neurologic: no loss of consc iousness, no weakness, no numbness, no seizures, no di zziness, no headaches Endocrine: Endocrine: no fatigue Hematologic/Lymphatic: Hematologic/Lymphatic no swo llen glands, no fatigue, no bruising, no bleeding, no we ight loss. skin symptoms no rash Physical Exam ? Abdomen UC Adult Reported By: Patient Tailor Garment Fitter: Tailor Garment Fitter: ; valeria palm (Km [place]) present throughout the examination Constitutional: General Appearance: healthy- appearing, well-nourished, well-developed. Level of Dis tress: NAD. Ambulation: ambulating normally Psychiatric: Insight: good judgement. Men norma Status: active and alert, normal mood, normal affect. Orientation: to time, to place, to person Eyes: Lids and Conjunctivae: non-i njected, no discharge, no pallor. Sclerae: non-icteric Neck: Neck: supple, trachea midlin e, no masses, no meningeal signs, FROM, NO jugular venous dist ention. Lymph Nodes: no cervical LAD, no supraclavicular LAD, no axillary LAD, no inguinal LAD. Thyroid: no enlargement, non -tender, no nodules Lungs: Respiratory effort: no dyspn ea. Percussion: no dullness, flatness, or hyperresonance. Auscultation: breath sounds normal, good air movement, C TA except as noted, no wheezing, no rales/crackles, no rhonch i Cardiovascular System: Heart Auscultation: RRR, nor mal S1, normal S2, no murmurs, no rubs, no gallops. Pulses inc luding femoral / pedal: normal throughout Abdomen: Bowel Sounds: normal. Inspec tion and Palpation: soft, non-distended, no masses, no CVA tenderness, RLQ tenderness, suprapubic tenderness, guard ing, rebound tenderness. Liver: non-tender, no hepatomegaly. Spleen: non-tender, no splenomegaly. Hernia: none p alpable Rectal: Anus, Perineum, Rectum: norm al tone, no hemorrhoids, no fissures, no masses, stool h rufina negative Skin: Inspection and palpation: wa rm and dry, no rash, good turgor, no jaundice
--- OUTSIDE RECORDS SUMMARY | 2023-02-03 15:56 | XMS_ITS | Continuity of Care Document ---
:1985 Author Organization [facility] Address Unavailable , Care Team Providers Name Role Phone Yamilageo Maai Vela DO Primary Care Physician Encounter [facility] [place] Date(s): 06/28/21 - 07/28/21 [facility] Attending Physician: Darlin Morales Admitting Physician: Darlin Morales Referring Physician: Darlin Morales Allergies, Adverse Reactions, Alerts Substance Reaction Severity Status penicillins rash Active drospirenone-ethinyl estradiol dizzy and nausea Active metroNIDAZOLE sweats and shakes Active Medications Colace sodium 100 mg oral capsule 100 mg, 1, capsule, By Mouth, 2 times a day, PRN, # 14 capsule, Refills 0, Tot. Refills 0, Maintenance, for constipation, 03/31/21 13:11:00 EDT, Route to Pharmacy Electronically, [facility]/pharmacy #[id number], Partial fill upon patient request if [...] 03/31/21 13:11:00 EDT, Route to Pharmacy Electronically, [facility]/pharmacy #[id number], Partial fill upon patient request if the prescription... Start Date: 03/31/21 Status: Orderedsimethicone 80 mg oral tablet 1 tablet = 80 mg, Chew, 3 times a day after meals and bedtime, PRN for gas, # 60 tablet, 0 Refills, Maintenance, 04/21/21 11:16:00 EDT, Tablet, [facility]/pharmacy #[id number], Partial fill upon patient request if [...]
--- OUTSIDE RECORDS SUMMARY | 2023-02-03 15:56 | XMS_ITS | Continuity of Care Document ---
:1985 Author Organization [facility] Address [address] 4[address] [place] [id number] Care Team Providers Name Role Phone Maia Obregon DO Primary Care Physician [place] [facility] [place]s): 01/25/21 - 02/01/21 [facility] [address] [place] [id number] Attending Physician: Christa Santoro MD Referring Physician: Fariba Florez MD Allergies, Adverse Reactions, Alerts Substance Reaction Severity Status penicillins Active drospirenone-ethinyl estradiol A ctive metroNIDAZOLE Active Problem List Condition Effective Dates Status Health Status Informant Pseudotumor cerebri(Confirmed) Active Irritable bowel syndrome Active (IBS)(Confirmed) Migraines(Confirmed) Active Anxiety and depression(Confirmed) Active Papilledema, right eye(Confirmed) Active Procedures Procedure Date Related Diagnosis Body Site Status Ear lesion removal 2015 Completed Vital Signs Most recent to oldest [Reference Range]: 1 Height 154.94 cm (01/25/21 9:11 AM) Weight 69 kg (01/25/21 9:11 AM) Pulse Rate [55-90 bpm] 72 bpm (01/25/21 9:11 AM) Body Mass Index [18.5-24.99] 28.74 *H* (01/25/21 9:11 AM) Blood Pressure [90-138/55-84 mm Hg] 102/60 mm Hg (01/25/21 9:11 AM) Blood pressure sites Arm, right (01/25/21 9:11 AM) Social History Social History Type Response Smoking Status Never (less than 100 in life time) entered on: 01/25/21 Sex
--- OUTSIDE RECORDS SUMMARY | 2023-02-03 15:57 | XMS_ITS | Continuity of Care Document ---
:1985 Author Organization [facility] Address [address] [facility], 4th Floor [address] [place] [address]- Care Team Providers Name Role Phone Maia Obregon DO Primary Care Physician Encounter [facility] Date(s): 06/14/22 - 07/14/22 [facility] [address] [facility] [place] [id number] Attending Physician: Darlin Morales Admitting Physician: AdmtrDarlin Referring Physician: Admtr, Ar8 Allergies, Adverse Reactions, [...] 03/31/21 13:11:00 EDT, Route to Pharmacy Electronically, [facility]/pharmacy #[id number], Partial fill upon patient request if the prescriptio... Start Date: 03/31/21 Stop Date: 04/07/21 Status: Orderedibuprofen 400 mg oral tablet 400 mg, 1, tablet, By Mouth, Every 6 hours, PRN, # 12 tablet, Refills 0, Tot. Refills 0, Maintenance, Pain , Moderate, 10/20/21 18:16:00 EST, Route to Pharmacy Electronically, [facility]/pharmacy #[id number], Partial fill upon patient request if [...] 0 Refills,Maintenance, 08/10/21 20:28:00 EDT, DIS Tablet, [id number], Partial fill upon patient request if the prescription is for a schedule II opioid... Start Date: 08/10/21 Status: Orderedsimethicone 80 mg oral tablet 1 tablet = 80 mg, Chew, 3 times a day after meals and bedtime, PRN for gas, # 60 tablet, 0 Refills, Maintenance, 04/21/21 11:16:00 EDT, Tablet, [id number], Partial fill upon patient request if the prescription is for a schedule II opioid drug.... Start Date: 04/21/21 Status: Ordered Problem List Condition Effective Dates Status Health Status Informant Pseudotumor cerebri(Confirmed) Active Irritable bowel syndrome Active (IBS)(Confirmed) Migraines(Confirmed) Active Anxiety and depression(Confirmed) Active Obese class I(Confirmed) Active Papilledema, right eye(Confirmed) Active Social History Social History Type Response Smoking Status Former smoker, quit more sedrick n 30 days ago entered on: 10/20/21 Sex Care Team PersonnelName: Clifton Vela DO Maia Address: [address] [place] [address]
--- OUTSIDE RECORDS SUMMARY | 2023-02-03 15:57 | XMS_ITS | Continuity of Care Document ---
:1985 Author Organization [facility] Address [address], [address] [place] [address]- Care Team Providers Name Role Phone Maia Obregon DO Primary Care Physician Encounter [facility] Date(s): 04/20/21 - 05/20/21 [facility] [address] [place] [id number] Allergies, Adverse Reactions, Alerts Substance Reaction Severity Status penicillins rash Active drospirenone-ethinyl estradiol dizzy and nausea Active metroNIDAZOLE sweats and shakes Active Medications Colace sodium 100 mg oral capsule 100 mg, 1, capsule, By Mouth, 2 times a day, PRN, # 14 capsule, Refills 0, Tot. Refills 0, Maintenance, for constipation, 03/31/21 13:11:00 EDT, Route to Pharmacy Electronically, [facility]/pharmacy #[id number], Partial fill upon patient request [...] 03/31/21 13:11:00 EDT, Route to Pharmacy Electronically, [facility]/pharmacy #[id number], Partial fill upon patient request if the prescription... Start Date: 03/31/21 Status: Orderedsimethicone 80 mg oral tablet 1 tablet = 80 mg, Chew, 3 times a day after meals and bedtime, PRN for gas, # 60 tablet, 0 Refills, Maintenance, 04/21/21 11:16:00 EDT, Tablet, [facility]/pharmacy #[id number], Partial fill upon patient request [...]
--- OUTSIDE RECORDS SUMMARY | 2023-02-03 15:57 | XMS_ITS | Continuity of Care Document ---
:1985 Author Organization [facility] Address [address] [place] [address]- Care Team Providers Name Role Phone Not on Staff, PCP Primary Care Physician Unavailable Encounter [facility] Date(s): 12/02/20 - 12/03/[address] [address]- Discharge Disposition: A-D/C Walkout Attending Physician: Not on Staff, Attending MD Admitting Physician: Not on Staff, Admitting MD Referring Physician: Not on Staff, Referring MD Allergies, Adverse Reactions, Alerts Substance Reaction Severity Status penicillins Active drospirenone-ethinyl estradiol A ctive Medications Flagyl 500 mg oral tablet 1 tablet = 500 mg, By Mouth, Every 12 hours, # 14 tablet, 0 Refills, Maintenance, 11/01/20 15:49:00 EST, Tablet, [facility] #[id number], Partial fill upon patient request if the prescription is for a schedule II opioid drug. Start Date: 11/01/20 Stop Date: 11/08/20 Status: Orderedibuprofen 600 mg oral tablet 600 mg, 1, tablet, By Mouth, Every 6 hours, # 30 tablet, Refills 0, Tot. Refills 0, Maintenance, 11/01/20 16:30:00 EST, Route to Pharmacy Electronically, [facility][id number], Partial fill upon patient request if the prescription is for a sched... Start Date: 11/01/20 Status: Ordered Vital Signs Most recent to oldest [Reference Range]: 1 2 Oxygen Saturation [94-100 %] 100 % 98 % (12/02/20 8:08 PM) (12/02/20 1:51 PM) Pulse Rate [55-90 bpm] 52 bpm 50 bpm *L* *L* (12/02/20 8:08 PM) (12/02/20 1:51 PM) Blood Pressure [90-138/55-84 mm Hg] 125/70 mm Hg 106/ 61 mm Hg (12/02/20 8:08 PM) (12/02/20 1:51 PM) Respiratory Rate [16-30 br/min] 18 br/min 19 br/mi n (12/02/20 8:08 PM) (12/02/20 1:51 PM) Temperature [96.8-100.4 DegF] 98.1 DegF 98.2 DegF (12/02/20 8:08 PM) (12/02/20 1:51 PM) Mode of Delivery (Oxygen) Room air Room air (12/02/20 8:08 PM) (12/02/20 1:51 PM) Blood pressure sites Arm, left Arm, right (12/02/20 8:08 PM) (12/02/20 1:51 PM) Temperature Route Oral Oral (12/02/20 8:08 PM) (12/02/20 1:51 PM)
--- OUTSIDE RECORDS SUMMARY | 2023-02-03 15:57 | XMS_ITS | Continuity of Care Document ---
:1985 Author Organization [facility] Address [address] [place] [address], [address] [place] [address]- Care Team Providers Name Role Phone Clifton Maia Vela DO Primary Care Physician Encounter [facility] Date(s): 08/06/22 - 08/13/22 [facility] [address] [facility], [address] [place] [id number] Attending Physician: Avni EDMOND, Kota Lopez Referring Physician: Christa Santoro MD Allergies, Adverse Reactions, Alerts Substance Reaction Severity Status morphine Hives Active cortisone Skin Bubbled at site Moderate Active penicillins rash Active drospirenone-ethinyl estradiol dizzy and nausea Active metroNIDAZOLE sweats and shakes Active Medications Colace sodium 100 mg oral capsule 100 mg, 1, capsule, By Mouth, 2 times a day, PRN, # 14 capsule, Refills 0, Tot. Refills 0, Maintenance, for constipation, 03/31/21 13:11:00 EDT, Route to Pharmacy Electronically, [facility]/pharmacy #[id number], Partial fill upon patient request if the prescriptio... Start Date: 03/31/21 Stop Date: 04/07/21 Status: OrderedEpiPen 2-Wayne = 0.3 mg, Intramuscular, Once, 0 Refills, Maintenance, 08/06/22 11:23:00 EDT, Partial fill upon patient request if the prescription is for a schedule II opioid drug. Start Date: 08/06/22 Status: OrderedImodium A-D 2 mg, By Mouth, Refills 0, Maintenance, 08/06/22 11:22:00 EDT, Partial fill upon patient request if the prescription is for a schedule II opioid drug. Start Date: 08/06/22 Status: Orderedondansetron 4 mg oral tablet, disintegrating 1 tablet = 4 mg, By Mouth, Every 8 hours, PRN as needed for nausea/vomiting, # 12 tablet, 0 Refills,Maintenance, 08/10/21 20:28:00 EDT, DIS Tablet, [facility]/pharmacy #[id number], Partial fill upon patient request if the prescription is for a schedule II opioid... Start Date: 08/10/21 Status: OrderedRexulti 0.25 mg oral tablet 1 tablet = 0.25 mg, By Mouth, Daily, # 30 tablet, 0 Refills, Maintenance, 08/06/22 11:23:00 EDT, Tablet, Partial fill upon patient request if the prescription is for a schedule II opioid drug. Start Date: 08/06/22 Status: OrderedSenna 8.6 mg oral tablet 8.6 mg, 1, tablet, By Mouth, Daily at bedtime, Refills 0, Maintenance, 08/06/22 11:22:00 EDT, Partial fill upon patient request if the prescription is for a schedule II opioid drug. Start Date: 08/06/22 Status: Ordered Problem List Condition Effective Dates Status Health Status Informant Pseudotumor cerebri(Confirmed) Active Irritable bowel syndrome Active (IBS)(Confirmed) Migraines(Confirmed) Active Anxiety and depression(Confirmed) Active Obese class I(Confirmed) Active Papilledema, right eye(Confirmed) Active Hand tendonitis(Confirmed) Active Social History Social History Type Response Smoking Status Former smoker, quit more sedrick n 30 days ago entered on: 10/20/21 Sex Care Team PersonnelName: Clifton Vela DOMaia Address: [address] [place] [address]
--- OUTSIDE RECORDS SUMMARY | 2023-02-03 15:57 | XMS_ITS | Continuity of Care Document ---
:1985 Author Organization [facility] Address [address] [address]- Care Team Providers Name Role Phone Ernst Blanchard MD, Laila Muniz Primary Care Physician Encounter [facility] Date(s): 09/04/22 - 11/15/22 [facility] [address] [address] Attending Physician: Not on Staff, Attending MD Referring Physician: Shelbi Yun CNM Allergies, Adverse Reactions, Alerts Substance Reaction Severity [...] 03/31/21 13:11:00 EDT, Route to Pharmacy Electronically, [facility]/pharmacy #[id number], Partial fill upon patient request if the [...] 0 Refills,Maintenance, 08/10/21 20:28:00 EDT, DIS Tablet, [facility]/pharmacy #[id number], Partial fill upon patient [...] Date: 08/06/22 Status: Ordered Problem List Condition Confirmation Course Effective Dates Status Health Stat us Informant Pseudotumor cerebri Confirmed Active Irritable bowel Confirmed Active syndrome (IBS) Migraines Confirmed Active Anxiety and Confirmed Active depression Papilledema, right Confirmed Active eye Hand tendonitis Confirmed Active Social History Social History Type Response Smoking Status Former smoker, quit more sedrick n 30 days ago entered on: 10/20/21 Sex Patient Care team information Care Team PersonnelName: Ernst Blanchard MD, Laila Muniz Position: Reference Physician Member Role: PCP Address: Address: [address] [place] [address] [place] [address]- Care Team Related PersonsName: BUDDY LOPEZ Address: home [address] [place] [address] [facility] [place] [address]
--- OUTSIDE RECORDS SUMMARY | 2023-02-03 15:57 | XMS_ITS | Continuity of Care Document ---
:1985 Author Organization [facility] Address Unavailable , Care Team Providers Name Role Phone Clifton Maia Vela DO Primary Care Physician Encounter [facility] Date(s): 06/14/22 - 06/21/22 [facility] Attending Physician: Christa Santoro MD Allergies, Adverse Reactions, [...] 0 Refills,Maintenance, 08/10/21 20:28:00 EDT, DIS Tablet, [facility]/pharmacy #[id number], Partial fill upon patient request if the prescription is for a schedule II opioid... Start Date: 08/10/21 Status: Orderedsimethicone 80 mg oral tablet 1 tablet = 80 mg, Chew, 3 times a day after meals and bedtime, PRN for gas, # 60 tablet, 0 Refills, Maintenance, 04/21/21 11:16:00 EDT, Tablet, [facility]/pharmacy #[id number], Partial fill upon patient request if the prescription is for a schedule II opioid drug.... Start Date: 04/21/21 Status: Ordered Problem List Condition Effective Dates Status Health Status Informant Pseudotumor cerebri(Confirmed) Active Irritable bowel syndrome Active (IBS)(Confirmed) Migraines(Confirmed) Active Anxiety and depression(Confirmed) Active Obese class I(Confirmed) Active Papilledema, right eye(Confirmed) Active Procedures Procedure Date Related Diagnosis Body Site Status Hysteroscopy with removal of submucous 03/31/21 Completed leiomyomata Insertion of intrauterine device (IUD)1 03/31/21 Completed Laparoscopic lysis of adhesions of 03/31/21 Completed ovary and fallopian tube 1LNG 52 mg Vital Signs Most recent to oldest [Reference Range]: 1 Height 154 cm (06/14/22 10:46 AM) Weight 71.5 kg (06/14/22 10:46 AM) Pulse Rate [55-90 bpm] 68 bpm (06/14/22 10:46 AM) Body Mass Index [18.5-24.99] 30.15 *>HHI* (06/14/22 10:46 AM) Blood Pressure [90-138/55-84 mm Hg] 98/67 mm Hg (06/14/22 10:46 AM) Blood pressure sites Arm, right (06/14/22 10:46 AM) Weight Obtained Via Standing scale (06/14/22 10:46 AM) Social History Social History Type Response Smoking Status Former smoker, quit more sedrick n 30 days ago entered on: 10/20/21 Sex
--- OUTSIDE RECORDS SUMMARY | 2023-02-03 15:57 | XMS_ITS | Continuity of Care Document ---
:1985 Author Organization [facility] Address [address] [address]- Care Team Providers Name Role Phone Ernst Blanchard MD, Laila Muniz Primary Care Physician En[place] [facility] Date(s): 10/16/22 - 11/15/22 [facility] [address] [address]- Attending Physician: Darlin Morales Admitting Physician: AdmtrDarlin Referring Physician: Admtr Ar8 Allergies, Adverse Reactions, Alerts Substance Reaction [...] 13:11:00 EDT, Route to Pharmacy Electronically, [facility]/pharmacy #[id number], Partial fill upon patient request if the [...] Refills,Maintenance, 08/10/21 20:28:00 EDT, DIS Tablet, [facility]/pharmacy #[id number], Partial fill upon patient [...] Reference Physician Member Role: PCP Address: Address: [address] [place] [address] [place] [address]- Care Team Related PersonsName: BUDDY LOPEZ Address: home [address] [place] [address]
--- OUTSIDE RECORDS SUMMARY | 2023-02-03 15:57 | XMS_ITS | Continuity of Care Document ---
:1985 Author Organization [facility] Address [address] [place] [address]- Care Team Providers Name Role Phone Ernst Blanchard MD, aLila Mnuiz Primary Care Physician [phone] [place] [facility] Date(s): 11/20/22 - 12/20/[address] [address]- Attending Physician: Darlin Morales Admitting Physician: Admtr, Darlin Referring Physician: Admtr, Ar8 Allergies, Adverse Reactions, [...] 03/31/21 13:11:00 EDT, Route to Pharmacy Electronically, [facility]/pharmacy #[id number], Partial fill upon patient request if the [...] Reference Physician Member Role: PCP Address: Address: [address] [place] [address] [place] [address]- Care Team Related PersonsName: BUDDY LOPEZ Address: home [address] [place] [address]
--- OUTSIDE RECORDS SUMMARY | 2023-02-03 15:57 | XMS_ITS | Continuity of Care Document ---
:1985 Author Organization [facility] Address [address] [place] [address]- Care Team Providers Name Role Phone Not on Staff, PCP Primary Care Physician Unavailable Encounter [facility] Date(s): 11/01/20 - 11/01/20 [facility] [address] [place] [address]- Encounter Diagnosis Female pelvic pain (Final) - 11/01/20 Bacterial vaginitis (Final) - 11/01/20 Discharge Disposition: A-D/C Home Attending Physician: Felicitas Rodriguez MD Admitting Physician: Felicitas Rodriguez MD Referring Physician: Not on Staff, Referring MD Allergies, Adverse Reactions, Alerts Substance Reaction Severity Status penicillins Active drospirenone-ethinyl estradiol A ctive Medications Flagyl 500 mg oral tablet 1 tablet = 500 mg, By Mouth, Every 12 hours, # 14 tablet, 0 Refills, Maintenance, 11/01/20 15:49:00 EST, Tablet, [facility] #[id number], Partial fill upon patient request if the prescription is for a schedule II opioid drug. Start Date: 11/01/20 Stop Date: 11/08/20 Status: Orderedibuprofen 600 mg oral tablet 600 mg, 1, tablet, By Mouth, Every 6 hours, # 30 tablet, Refills 0, Tot. Refills 0, Maintenance, 11/01/20 16:30:00 EST, Route to Pharmacy Electronically, [facility] #[id number], Partial fill upon patient request if the prescription is for a sched... Start Date: 11/01/20 Status: Ordered Results Orders for Microbiology Reports Name Date Wet Prep 11/01/20 Microbiology Reports TEST:Wet Prep STATUS:Auth (Verified) BODY SITE: SOURCE:VAGINA COLLECTED DATE/TIME:11/01/20 2:00 PMWet Prep SPECIMEN DESCRIPTION : VAGINAL SPECIMEN SPECIAL REQUESTS : NONE DIRECT EXAM : 2+ WHITE BLOOD CELLS 1+ CLUE CELLS NO YEAST OBSERVED NO TRICHOMONAS OBSERVED REPORT STATUS : FINAL 11/01/2020 Vital Signs Most recent to oldest [Reference Range]: 1 2 Weight 65.1 kg (11/01/20 11:22 AM) Oxygen Saturation [94-100 %] 100 % 100 % (11/01/20 11:22 AM) (11/01/20 11:18 AM) Pulse Rate [55-90 bpm] 60 bpm 99 bpm (11/01/20 11:22 AM) *H* (11/01/20 11:18 AM) Blood Pressure [90-138/55-84 mm Hg] 110/83 mm Hg (11/01/20 11:22 AM) Respiratory Rate [16-30 br/min] 16 br/min (11/01/20 11:22 AM) Temperature [96.8-100.4 DegF] 98.5 DegF (11/01/20 11:22 AM) Mode of Delivery (Oxygen) Room air (11/01/20 11:22 AM) Blood pressure sites Arm, right (11/01/20 11:22 AM) Temperature Route Oral (11/01/20 11:22 AM) Weight Obtained Via Standing scale (11/01/20 11:22 AM)
--- OUTSIDE RECORDS SUMMARY | 2023-02-03 15:57 | XMS_ITS | Continuity of Care Document ---
:1985 Author Organization [facility] Address [address] [place] [address], [address] [place] [address]- Care Team Providers Name Role Phone Not on Staff, PCP Primary Care Physician Unavailable Encounter [facility] Date(s): 08/06/22 - 09/05/22 [facility] [address] [facility], [address] [place] [address] Attending Physician: Darlin Morales Admitting Physician: Admtr, Ar8 Referring Physician: Admtr, [...] 13:11:00 EDT, Route to Pharmacy Electronically, [facility]/pharmacy #[id number], Partial fill upon patient request if the [...] 0 Refills,Maintenance, 08/10/21 20:28:00 EDT, DIS Tablet, [facility]/pharmacy #[id number], Partial fill upon patient request if [...] on: 10/20/21 Sex Patient Care team information PersonnelName: Not on Staff, PCP
--- OUTSIDE RECORDS SUMMARY | 2023-02-03 15:57 | XMS_ITS | Continuity of Care Document ---
:1985 Author Organization [facility] Address Unavailable , Care Team Providers Name Role Phone Clifton Maia Vela DO Primary Care Physician [place] [facility] Date(s): 06/28/21 - 07/05/21 [facility] Attending Physician: Christa Santoro MD Referring Physician: Christa Santoro MD Allergies, Adverse [...] 13:11:00 EDT, Route to Pharmacy Electronically, [facility]/pharmacy #[id number], Partial fill upon patient request if [...] 13:11:00 EDT, Route to Pharmacy Electronically, [facility]/pharmacy #[id number], Partial fill upon patient request if the prescription... Start Date: 03/31/21 Status: Orderedsimethicone 80 mg oral tablet 1 tablet = 80 mg, Chew, 3 times a day after meals and bedtime, PRN for gas, # 60 tablet, 0 Refills, Maintenance, 04/21/21 11:16:00 EDT, Tablet, [facility]/pharmacy #[id number], Partial fill upon patient request if the [...]
--- OUTSIDE RECORDS SUMMARY | 2023-02-03 15:57 | XMS_ITS | Continuity of Care Document ---
:1985 Author Organization [facility] Address [address] [place] [address]- Care Team Providers Name Role Phone YamilaenricoMaia Martino DO Primary Care Physician Encounter [facility] [place] Date(s): 03/31/21 - 03/31/[address] [address] Discharge Disposition: A-D/C Home Attending Physician: Christa Santoro MD Admitting Physician: Christa Santoro MD Referring Physician: Christa Santoro MD Allergies, Adverse Reactions, Alerts Substance Reaction Severity Status penicillins rash Active drospirenone-ethinyl estradiol dizzy and nausea Active metroNIDAZOLE sweats and shakes Active Medications acetaminophen 325 mg oral tablet 650 mg, 2, tablet, By Mouth, Every 4 hours, PRN, for 3 days, # 50 tablet, Refills 1, Tot. Refills 1,Acute 04/06/21 13:11:00 EDT, for pain, 03/31/21 13:11:00 EDT, Route to Pharmacy Electronically, [facility]/pharmacy #[id number], Partial fill upon patient request... Start Date: 03/31/21 Stop Date: 04/06/21 Status: OrderedColace sodium 100 mg oral capsule 100 mg, 1, capsule, By Mouth, 2 times a day, PRN, # 14 capsule, Refills 0, Tot. Refills 0, Maintenance, for constipation, 03/31/21 13:11:00 EDT, Route to Pharmacy Electronically, [facility]/pharmacy #[id number], Partial fill upon patient request if the prescriptio... Start Date: 03/31/21 Stop Date: 04/07/21 Status: Orderedibuprofen 800 mg oral tablet 800 mg, 1, tablet, By Mouth, Every 8 hours, PRN, # 50 tablet, Refills 1, Tot. Refills 1, Maintenance, as needed for pain, 03/31/21 13:11:00 EDT, Route to Pharmacy Electronically, [facility]/pharmacy #[id number], Partial fill upon patient request if the prescriptio... Start Date: 03/31/21 Status: OrderedoxyCODONE 5 mg oral tablet 5 mg, 1, tablet, By Mouth, Every 6 hours, PRN, # 10 tablet, Refills 0, Tot. Refills 0, Maintenance, as needed for pain, 03/31/21 13:11:00 EDT, [id number] Partial fill upon patient request if the prescription... Start Date: 03/31/21 Status: Ordered Problem List Condition Effective Dates Status Health Status Informant Pseudotumor cerebri(Confirmed) Active Irritable bowel syndrome Active (IBS)(Confirmed) Migraines(Confirmed) Active Anxiety and depression(Confirmed) Active Papilledema, right eye(Confirmed) Active Vital Signs Most recent to oldest 1 2 3 [Reference Range]: Height 155 cm 155 cm (03/31/21 12:45 PM) (03/24/21 11:27 AM) Weight 67.4 kg 67 kg (03/31/21 12:45 PM) (03/24/21 11:27 AM) Oxygen Saturation [94-100 97 % 100 % 97 % %] (03/31/21 5:45 PM) (03/31/21 5:30 PM) (03/31/21 5:1 5 PM) Pulse Rate [55-90 bpm] 50 bpm *L* (03/31/21 12:45 PM) Body Mass Index 28.05 27.89 [18.5-24.99] *H* *H* (03/31/21 12:45 PM) (03/24/21 11:27 AM) Blood Pressure 112/68 mm Hg 105/64 mm Hg 116/73 mm Hg [90-138/55-84 mm Hg] (03/31/21 5:30 PM) (03/31/21 5:15 PM) ( 1 5:00 PM) Respiratory Rate [16-30 14 br/min 12 br/min 17 br/mi n br/min] *L* *L* (03/31/21 5:15 PM ) (03/31/21 5:45 PM) (03/31/21 5:30 PM) Temperature [96.8-100.4 98.9 DegF 99.4 DegF 99.6 Deg F DegF] (03/31/21 5:30 PM) (03/31/21 5:00 PM) (03/31/21 4:3 0 PM) Mode of Delivery (Oxygen) Room air Room air Room a ir (03/31/21 5:45 PM) (03/31/21 5:30 PM) (03/31/21 5:1 5 PM) Blood pressure sites Arm, left (03/31/21 12:45 PM) Temperature Route Temporal Temporal Temporal (03/31/21 5:30 PM) (03/31/21 5:00 PM) (03/31/21 4:3 0 PM) Dry Weight 67.4 kg 67 kg (03/31/21 12:45 PM) (03/24/21 11:27 AM) Weight Obtained Via Standing scale Patient/family stated (03/31/21 12:45 PM) (03/24/21 11:27 AM) Dry Weight Obtained Via Patient/family stated (03/24/21 11:27 AM) Social History Social History Type Response Smoking Status Never (less than 100 in life time) entered on: 01/25/21 Sex
--- OUTSIDE RECORDS SUMMARY | 2023-02-03 15:57 | XMS_ITS | Continuity of Care Document ---
:1985 Author Organization [facility] Address [address] [place] [id number]- Care Team Providers Name Role Phone Ersnt Blanchard MD, Laila Muniz Primary Care Physician [phone] [id number] Date(s): 11/17/22 - 12/20/[address] [id number] Attending Physician: Laila Anand MD Admitting Physician: Laila Anand MD Allergies, Adverse Reactions, Alerts Substance Reaction Severity Status morphine Hives Active cortisone Skin Bubbled at site Moderate Active metroNIDAZOLE sweats and shakes Active penicillins rash Active drospirenone-ethinyl estradiol dizzy and nausea Active Medications Colace sodium 100 mg oral capsule 100 mg, 1, capsule, By Mouth, 2 times a day, PRN, # 14 capsule, Refills 0, Tot. Refills 0, Maintenance, for constipation, 03/31/21 13:11:00 EDT, Route to Pharmacy Electronically, [facility]/pharmacy #[id number], Partial fill upon patient request if the [...] Reference Physician Member Role: PCP Address: Address: [address] [place] [address] [place] [address]- Care Team Related PersonsName: BUDDY LOPEZ Address: home [address] [place] [id number]
--- OUTSIDE RECORDS SUMMARY | 2023-02-03 15:57 | XMS_ITS | Continuity of Care Document ---
:1985 Author Organization [facility] Address [address] [place] [id number]- Care Team Providers Name Role Phone Maia Obregon DO Primary Care Physician [place] [facility] [place] - 04/21/[address] [address]- Discharge Disposition: A-D/C Home Attending Physician: Igor Stanley MD Admitting Physician: Igor Stanley MD Referring Physician: Not on Staff, Referring [...] 03/31/21 13:11:00 EDT, Route to Pharmacy Electronically, [facility]/pharmacy #[id number], Partial fill upon patient request if the prescriptio... Start Date: 03/31/21 Stop Date: 04/07/21 Status: Orderedibuprofen 800 mg oral tablet 800 mg, 1, tablet, By Mouth, Every 8 hours, PRN, # 50 tablet, Refills 1, Tot. Refills 1, Maintenance, as needed for pain, 03/31/21 13:11:00 EDT, Route to Pharmacy Electronically, [facility]/pharmacy #[id number], Partial fill upon patient request if the prescriptio... Start Date: 03/31/21 Status: OrderedoxyCODONE 5 mg oral tablet 5 mg, 1, tablet, By Mouth, Every 6 hours, PRN, # 10 tablet, Refills 0, Tot. Refills 0, Maintenance, as needed for pain, 03/31/21 13:11:00 EDT, Route to Pharmacy Electronically, [facility]/pharmacy #[id number], Partial fill upon patient request if the prescription... Start Date: 03/31/21 Status: Orderedsimethicone 80 mg oral tablet 1 tablet = 80 mg, Chew, 3 times a day after meals and bedtime, PRN for gas, # 60 tablet, 0 Refills, Maintenance, 04/21/21 11:16:00 EDT, Tablet, [facility]/pharmacy #[id number], Partial fill upon patient request if the prescription is for a schedule II opioid drug.... Start Date: 04/21/21 Status: OrderedToradol Inj 15 mg, Injection, IV Push Slowly, Once, STAT, 04/21/21 8:45:00 EDT, Stop date 04/21/21 8:45:00 EDT Start Date: 04/21/21 Stop Date: 04/21/21 Status: CompletedZofran 4 mg oral tablet 1 tablet = 4 mg, By Mouth, 2 times a day, PRN as needed for nausea/vomiting, for 10 days, Take 30 min prior to Doxycycline, # 20 tablet, 0 Refills, Acute 05/01/21 11:15:00 EDT, 04/21/21 11:15:00 EDT, Tablet, [facility]/pharmacy #[id number], Partial fill upon patie... Start Date: 04/21/21 Stop Date: 05/01/21 Status: Ordered Problem List Condition Effective Dates Status Health Status Informant Pseudotumor cerebri(Confirmed) Active Irritable bowel syndrome Active (IBS)(Confirmed) Migraines(Confirmed) Active Anxiety and depression(Confirmed) Active Papilledema, right eye(Confirmed) Active Vital Signs Most recent to oldest [Reference 1 2 3 Range]: Oxygen Saturation [94-100 %] 100 % 100 % 100 % (04/21/21 11:46 AM) (04/21/21 8:50 AM) (04/21/21 5:35 AM) Pulse Rate [55-90 bpm] 62 bpm 64 bpm 58 bpm (04/21/21 11:46 AM) (04/21/21 8:50 AM) (04/21/21 5:35 AM) Blood Pressure [90-138/55-84 mm 106/66 mm Hg 110/64 mm Hg 106/81 mm Hg Hg] (04/21/21 11:46 AM) (04/21/21 8:50 AM) (04/21/21 5:35 AM) Respiratory Rate [16-30 br/min] 16 br/min 16 br/min 18 br/min (04/21/21 11:46 AM) (04/21/21 9:44 AM) (04/21/21 8:50 AM) Temperature [96.8-100.4 DegF] 97.7 DegF 98.4 DegF 98 DegF (04/21/21 11:46 AM) (04/21/21 8:50 AM) (04/21/21 5:35 AM) Mode of Delivery (Oxygen) Room air Room air Room a ir (04/21/21 11:46 AM) (04/21/21 8:50 AM) (04/21/21 5:35 AM) Blood pressure sites Arm, left Arm, right Arm, right (04/21/21 11:46 AM) (04/21/21 8:50 AM) (04/21/21 5:35 AM) Temperature Route Oral Oral Oral (04/21/21 11:46 AM) (04/21/21 5:35 AM) (04/21/21 3:53 AM) Social History Social History Type Response Smoking Status Never (less than 100 in life time) entered on: 01/25/21 Sex
[2023-02-03 16:12] LABS: Alanine Aminotransferase 7 U/L (0-31); Albumin Level 4.4 g/dL (3.5-5.0); Alkaline Phosphatase 34 U/L (39-117); Anion Gap 14 (12-20); Aspartate Amino Transferase 12 U/L (5-31); Bilirubin Direct < 0.2 mg/dL (0.0-0.5); Bilirubin Total 0.4 mg/dL (0.0-1.0); Blood Urea Nitrogen 10 mg/dL (9-16); Calcium 9.4 mg/dL (8.4-10.2); Carbon Dioxide 23 mmol/L (22-29); Chloride 107 mmol/L (96-108); Creatinine Clr Calc Pharmacy 78.9; Estimated Glomerular Filt Rate > 60; Glucose Random 86 mg/dL (60-115); Lipase 24 U/L (8-78); Potassium 4.1 mmol/L (3.3-5.1); Sodium 140 mmol/L (135-145)
[2023-02-03 16:16] LABS: Appearance Urine Cloudy; Color Urine Yellow; Glucose Urine UA Negative (Negative); Leukocyte Esterase Urine Small (1+) (Negative); Nitrite Urine Negative (Negative); Specific Gravity - Urine >= 1.030 (1.005-1.025); UMIC TRIGGER UACC YES; Urine Blood Trace (Negative); Urine Ketones Trace mg/dL (Negative); Urine Protein Negative (Neg-Trace)
[2023-02-03 16:20] LABS: UPreg QC Valid YES; Urine Pregnancy NEGATIVE (NEGATIVE)
[2023-02-03 16:21] LABS: Bacteria Urine Trace (None Seen); Hyaline Casts Urine 0-2 /LPF (0-2); UACC Culture Trigger YES
[2023-02-03] MEDS: iohexoL 350 MG/ML 100 ML INFUS..BTL IV (16:30)
[2023-02-03] MEDS: cephALEXin 500 MG CAPSULE PO (17:38)
== END 2023-02-03 17:47 | disposition home or self-care (01) ==
PROVIDERS: Emergency Provider Emergency Medicine; PCP Internal Medicine
DX: N39.0 Urinary tract infection, site not specified (principal); R10.30 Lower abdominal pain, unspecified; Z79.899 Other long term (current) drug therapy
CPT/HCPCS: 36415; 74177; 80048; 80076; 81001; 81025; 83690; 85025; 87086; 99282; 99283; Q9967

== ENCOUNTER 2023-04-02 10:16 | Emergency (ER) | payer OTHER, SELFPAY ==
--- NOTE | ~2023-04-02 | CT_ITS ---
EXAMINATION: CT ABDOMEN AND PELVIS WITHOUT CONTRAST CLINICAL INFORMATION: Left lower quadrant pain COMPARISON: None available. TECHNIQUE: Multidetector volumetric imaging was performed from the superior aspect of the liver through the pubic symphysis. Sagittal and coronal reformatted images were obtained on the technologist's workstation. This CT examination was performed using dose optimization techniques as appropriate, variously including the following: *Automated exposure control *Adjustment of mA and/or kV according to patient size (this includes techniques or standardized protocols for targeted exams where dose is matched to indication/reason for exam; i.e. extremities or head) *Use of iterative reconstruction technique DLP: 505 mGy-cm FINDINGS: LUNG BASES: The visualized lung bases are unremarkable. The heart size is normal. LIVER, GALLBLADDER, AND BILIARY TREE: There is a lobulated low-density 2.1 cm lesion left hepatic lobe measuring cyst. There are a few punctate hypodensities scattered as well. No intrahepatic ductal dilatation seen. The gallbladder is unremarkable with no evidence of radiopaque gallstones, gallbladder wall thickening, or obvious pericholecystic inflammatory changes. PANCREAS: Unremarkable. SPLEEN: Unremarkable. ADRENAL GLANDS: Unremarkable. KIDNEYS AND URETERS: The kidneys are normal in size, shape, and attenuation. No hydronephrosis, hydroureter, or calculi seen. No perinephric stranding. BLADDER: Unremarkable. GASTROINTESTINAL TRACT: There is scattered stool and gas seen throughout the colon without distention. The small bowel loops are normal caliber. No free fluid or free air. The stomach is nondistended. Appendix is not visualized ABDOMINAL WALL: No significant hernia is appreciated. LYMPH NODES: Normal. VASCULAR: Unremarkable. PELVIC VISCERA: The uterus is anteverted with IUD well located within the endometrial canal. No adnexal mass visualized. There is tiny free fluid right cul-de-sac. OSSEOUS STRUCTURES: No aggressive lytic or sclerotic process seen. CT/CT abdomen pelvis wo IV con IMPRESSION: 1. No acute intra-abdominal process seen. 2. Mild constipation. 3. No radiopaque urolith or hydroureteronephrosis. No acute intra-abdominal process seen. 4. Mild constipation. Fleischner guidelines were followed.
[2023-04-02 10:38] VITALS: BP 120/69; PULSE 63; RESP 18; TEMP 36.5; O2SAT 99; BMI 29.7
[2023-04-02 11:27] VITALS: BP 100/55; PULSE 76; RESP 18; TEMP 36.5; O2SAT 100
--- NOTE | 2023-04-02 11:31 | PC.NURSE ---
Alert and oriented. Complaining of stomach pain that started 2 days ago and new onset back pain that started last night. States pain is a 8/10. States hx of IBS. No sob or edema noted. Vss, ambulating in room without difficulty. States had a similar pain in the past d/t pancreas issues.
[2023-04-02 11:51] LABS: Appearance Urine Clear; Color Urine Dark Yellow; Glucose Urine UA Negative (Negative); Leukocyte Esterase Urine Trace (Negative); Nitrite Urine Negative (Negative); Specific Gravity - Urine >= 1.030 (1.005-1.025); UMIC TRIGGER UACC YES; Urine Blood Negative (Negative); Urine Ketones Trace mg/dL (Negative); Urine Protein Trace mg/dL (Neg-Trace)
[2023-04-02 11:54] LABS: UPreg QC Valid YES; Urine Pregnancy NEGATIVE (NEGATIVE)
[2023-04-02 12:00] LABS: MANUAL DIFF FLAG NO
[2023-04-02 12:02] LABS: Basophils Percent Auto 0.7 % (0-2); Eosinophils Absolute Auto 0.1 X10*3/uL (0.0-0.4); Eosinophils Percent Auto 1.8 % (0-4); Hematocrit 39.8 % (37.0-47.0); Hemoglobin 13.6 g/dl (12.0-16.0); Imm Gran Abs Auto 0.01 X10*3/uL (0.00-0.03); Imm Gran Pct Auto 0.2 % (0.0-0.4); Lymphocytes Absolute Auto 1.8 X10*3/uL (1.2-4.9); Lymphocytes Percent Auto 30.5 % (20-40); Mean Corpuscular HGB Conc 34.2 g/dl (31.0-35.0); Mean Corpuscular Hemoglobin 32.5 pg (27.0-33.0); Mean Platelet Volume 9.8 fL (9.4-12.3); Monocytes Absolute Auto 0.4 X10*3/uL (0.1-1.2); Monocytes Percent Auto 6.8 % (2-11); Neutrophils Absolute Auto 3.6 x10*3/uL (2.0-8.3); Platelet Count 230 X10*3/uL (160-400); Red Blood Count 4.19 X10*6/uL (4.20-5.50); Red Cell Distribution Width 12.6 % (11.0-16.0)
[2023-04-02 12:04] LABS: Bacteria Urine 2+ (None Seen); Hyaline Casts Urine 0-2 /LPF (0-2); UACC Culture Trigger YES
[2023-04-02 12:18] LABS: Anion Gap 10 (12-20); Blood Urea Nitrogen 10 mg/dL (9-16); Calcium 9.3 mg/dL (8.4-10.2); Carbon Dioxide 24 mmol/L (22-29); Chloride 108 mmol/L (96-108); Creatinine Clr Calc Pharmacy 86.6; Estimated Glomerular Filt Rate > 60; Glucose Random 90 mg/dL (60-115); Potassium 4.3 mmol/L (3.3-5.1); Sodium 138 mmol/L (135-145)
--- NOTE | 2023-04-02 12:25 | ED.ABDPAIN ---
HPI - Abdominal Pain General Chief Complaint: Abdominal Pain Stated Complaint: Abdominal Pain Radiating To Back Time Seen by Provider: 04/02/23 11:08 Source: patient Mode of arrival: ambulatory History of Present Illness HPI narrative: 37-year-old female with 2 days of anterior left lower quadrant pain, LMP 2 weeks ago, some mild nausea but no vomiting and continues to pass flatus and denies any urinary symptoms or any history of diverticulitis renal colic. Patient states that today the pain began radiating into her back as well as down into her proximal left leg. Related Data Allergies Allergy/AdvReac Type Severity Reaction Status Date / Time morphine Allergy Intermediate urticaria Verified 04/02/23 10:41 drospirenone [From JESSE (28)] Allergy Unknown UNKNOWN Verified 04/02/23 10:41 ethinyl estradiol Allergy Unknown UNKNOWN Verified 04/02/23 10:41 [From JESSE (28)] Penicillins [PENICILLINS] Allergy Unknown HIVES Verified 04/02/23 10:41 metronidazole Allergy Chills Verified 04/02/23 10:41 Review of Systems Review of Systems Pertinent positives and negatives as stated in HPI PMFSH Past Medical History Source: nursing notes reviewed Medical History Idiopathic intracranial hypertension Intractable headache Migraines Vertigo Social History Social History Alcohol intake: former Smoked in Last 30 Days: No Use of substances other than those prescribed or required for medical reasons: Yes Substance Use Type: Marijuana Substance Use Frequency: Occasionally Last Used Substance: Days (ago) Advance Directives: No Physical Exam ED Vital Signs: Vital Signs - 24 hr 04/02/23 10:38 04/02/23 11:27 Temperature 97.7 F 97.7 F Pulse Rate 63 76 Respiratory Rate 18 18 Blood Pressure 120/69 100/55 L Pulse Oximetry 99 100 Oxygen Delivery Method Room Air Room Air BMI result Body Mass Index 29.7 VITAL SIGNS: Reviewed. GENERAL: Well developed, well nourished, in no acute distress. HEAD: Normocephalic/atraumatic EYES: PERRLA, EOMI EARS: Ext canals without abnormality NOSE: Nares patent bilateral OROPHARYNX: no oral lesions noted, posterior pharynx clear NECK: Supple, no adenopathy LUNGS: Normal breath sounds. No adventitious sounds or accessory muscle use. SpO2<100> CARDIOVASCULAR: Regular rate and rhythm without noted murmurs ABDOMEN: Soft, discomfort in the left lower quadrant without rebound, non-distended with bowel sounds. MUSCULOSKELETAL: No tenderness, deformities, or effusions noted on gross inspection. EXTREMITIES: No cyanosis, clubbing or edema. SKIN: Inspection of the skin reveals no rashes NEUROLOGIC: Alert and oriented x 3. Strength and sensation to light touch were grossly intact x 4. Medical Decision Making Medical Decision Making MDM Narrative: 37-year-old female with history of IBS, appears well, suspect possibility of MSK but will rule out less likely renal colic, UTI. I reviewed all investigations and my interpretation is patient has a contaminated urine sample and otherwise demonstrates constipation. All results discussed with her at bedside and she is otherwise discharged home in stable condition. Differential Diagnosis Please see the discussion above Lab Data Please see the discussion above 04/02/23 11:53 04/02/23 11:53 Labs: Lab Results 04/02/23 04/02/23 04/02/23 Range/Units 11:38 11:38 11:53 WBC 6.0 (4.8-10.8) X10*3/uL RBC 4.19 L (4.20-5.50) X10*6/uL Hgb 13.6 (12.0-16.0) g/dl Hct 39.8 (37.0-47.0) % MCV 95.0 (80.0-98.0) fL MCH 32.5 (27.0-33.0) pg MCHC 34.2 (31.0-35.0) g/dl RDW 12.6 (11.0-16.0) % Plt Count 230 (160-400) X10*3/uL MPV 9.8 (9.4-12.3) fL Immature Gran % (Auto) 0.2 (0.0-0.4) % Neut % (Auto) 60.0 (45-73) % Lymph % (Auto) 30.5 (20-40) % [place] % (Auto) 6.8 (2-11) % Eos % (Auto) 1.8 (0-4) % Baso % (Auto) 0.7 (0-2) % Lymph # (Auto) 1.8 (1.2-4.9) X10*3/uL [place] # (Auto) 0.4 (0.1-1.2) X10*3/uL Eos # (Auto) 0.1 (0.0-0.4) X10*3/uL Baso # (Auto) 0.0 (0.0-0.2) X10*3/uL Abs Immat Gran (auto) 0.01 (0.00-0.03) X10*3/uL Absolute Neuts (auto) 3.6 (2.0-8.3) x10*3/uL Absolute Nucleated RBC 0.000 (0.0-0.012) X10*3/uL Nucleated RBC % (auto) 0.0 (0.0-0.2) /100WBC Sodium (135-145) mmol/L Potassium (3.3-5.1) mmol/L Chloride (96-108) mmol/L Carbon Dioxide (22-29) mmol/L Anion Gap (12-20) BUN (9-16) mg/dL Creatinine (0.5-1.4) mg/dL Estim Creat Clear Calc Estimated GFR Random Glucose (60-115) mg/dL Calcium (8.4-10.2) mg/dL Urine Color Dark Yellow Urine Appearance Clear Urine pH 5.0 (5.0-9.0) Ur Specific [place] >= 1.030 H (1.005-1.025) Urine Protein Trace (Neg-Trace) mg/dL Urine Glucose (UA) Negative (Negative) mg/dL Urine Ketones Trace (Negative) mg/dL Urine Blood Negative (Negative) Urine Nitrite Negative (Negative) Ur Leukocyte Esterase Trace H (Negative) Urine RBC 6-10 H (0-2) /HPF Urine WBC 11-20 H (0-5) /HPF Ur Squamous Epith Cells 6-10 (0-2) /HPF Urine Bacteria 2+ (None Seen) Hyaline Casts 0-2 (0-2) /LPF Urine Test NEGATIVE (NEGATIVE) 04/02/23 Range/Units 11:53 WBC (4.8-10.8) X10*3/uL RBC (4.20-5.50) X10*6/uL Hgb (12.0-16.0) g/dl Hct (37.0-47.0) % MCV (80.0-98.0) fL MCH (27.0-33.0) pg MCHC (31.0-35.0) g/dl RDW (11.0-16.0) % Plt Count (160-400) X10*3/uL MPV (9.4-12.3) fL Immature Gran % (Auto) (0.0-0.4) % Neut % (Auto) (45-73) % Lymph % (Auto) (20-40) % [place] % (Auto) (2-11) % Eos % (Auto) (0-4) % Baso % (Auto) (0-2) % Lymph # (Auto) (1.2-4.9) X10*3/uL [place] # (Auto) (0.1-1.2) X10*3/uL Eos # (Auto) (0.0-0.4) X10*3/uL Baso # (Auto) (0.0-0.2) X10*3/uL Abs Immat Gran (auto) (0.00-0.03) X10*3/uL Absolute Neuts (auto) (2.0-8.3) x10*3/uL Absolute Nucleated RBC (0.0-0.012) X10*3/uL Nucleated RBC % (auto) (0.0-0.2) /100WBC Sodium 138 (135-145) mmol/L Potassium 4.3 (3.3-5.1) mmol/L Chloride 108 (96-108) mmol/L Carbon Dioxide 24 (22-29) mmol/L Anion Gap 10 L (12-20) BUN 10 (9-16) mg/dL Creatinine 0.81 (0.5-1.4) mg/dL Estim Creat Clear Calc 86.6 Estimated GFR > 60 Random Glucose 90 (60-115) mg/dL Calcium 9.3 (8.4-10.2) mg/dL Urine Color Urine Appearance Urine pH (5.0-9.0) Ur Specific [place] (1.005-1.025) Urine Protein (Neg-Trace) mg/dL Urine Glucose (UA) (Negative) mg/dL Urine Ketones (Negative) mg/dL Urine Blood (Negative) Urine Nitrite (Negative) Ur Leukocyte Esterase (Negative) Urine RBC (0-2) /HPF Urine WBC (0-5) /HPF Ur Squamous Epith Cells (0-2) /HPF Urine Bacteria (None Seen) Hyaline Casts (0-2) /LPF Urine Test (NEGATIVE) Radiology Impression Radiologist Impression: My interpretation is in agreement with radiology's impression. External Record Review External record reviewed: Prior outpatient labs Medications Administered Discontinued Medications Generic Name Dose Route Start Last Admin Trade Name Freq PRN Reason Stop Dose Admin Acetaminophen 975 mg 04/02/23 13:15 04/02/23 14:27 Acetaminophen 325 Mg Tablet PO 04/02/23 13:16 975 mg ONCE ONE Administration Ketorolac Tromethamine 15 mg 04/02/23 13:15 04/02/23 14:26 Ketorolac Tromethamine 15 Mg/Ml Vial IM 04/02/23 13:16 15 mg ONCE ONE Administration Discharge Plan Discharge Clinical Impression: Constipation Patient Disposition: Home, Self-Care Instructions: Constipation (ED), High Fiber Diet (ED), Fleet Enema (ED) Additional Instructions: Resume all home medications. Recommend initiating jafg-ygr-iniivbi MiraLax at least daily until you began having soft formed bowel movements. Follow-up with your primary care provider for re-evaluation further outpatient management. Return to the ER for any worsening symptoms. Referrals: Howard Bergeron MD [Primary Care Provider] -
[2023-04-02] MEDS: Ketorolac Tromethamine 15 MG/ML VIAL IM (14:26)
[2023-04-02] MEDS: Acetaminophen 325 MG TABLET 975 MG PO (14:27)
== END 2023-04-02 15:07 | disposition home or self-care (01) ==
PROVIDERS: Emergency Provider Student in an Organized Health Care Education/Training Program; PCP Internal Medicine
DX: K59.00 Constipation, unspecified (principal); R10.32 Left lower quadrant pain
CPT/HCPCS: 36415; 74176; 80048; 81001; 81025; 85025; 87086; 96372; 99284; J1885

== ENCOUNTER 2023-11-07 12:12 | Outpatient (AMB) | payer OTHER, MEDICAID, SELFPAY ==
--- NOTE | 2023-11-07 13:36 | MHC.OFFWIV ---
Intake Vital Signs 11/07/23 13:45 Height 5 ft 1 in Weight 164 lb 6 oz BMI 31.1 BP 116/70 Blood Pressure Location Lt brachial Position Sitting Pulse 62 Pulse Source Pulse Oximeter Pulse Oximetry (%) 100 Oxygen Delivery Method Room Air Intake Visit Reasons: EP dizzy spells hot flashes abdomin pain [id number] Intake Note: Pt is here today for hot flashes and abdominal pain and dizzy spells which occurred here and there started months ago Patient Tobacco Use Status: Never used Tobacco Allergies morphine Allergy (Intermediate, Verified 11/07/23 13:36) urticaria drospirenone [From JESSE (28)] Allergy (Unknown, Verified 11/07/23 13:36) UNKNOWN ethinyl estradiol [From JESSE (28)] Allergy (Unknown, Verified 11/07/23 13:36) UNKNOWN Penicillins [PENICILLINS] Allergy (Unknown, Verified 11/07/23 13:36) HIVES metronidazole Allergy (Verified 11/07/23 13:36) Chills Do you need a note to return to daycare/school/sports/work: Yes HPI HPI Comments History of Present Illness Details the patient presents to urgent care for evaluation of abdominal pain. She states that she has had lower abdominal pain for about 3 months in addition she has had dizzy spells and hot flashes. She checked in with her OBGYN I thinking she may be going through early menopause but had hormone blood work obtained and was told that this was not the case. The patient reports that she had an episode yesterday with dizziness that necessitated leaving work early. She wanted to come in and get checked. She has a follow-up appointment with her PCP on November 25. Patient denies fever chills nausea vomiting denies dysuria. Reports irregular menses with spotting. She has a Mirena IUD [facility] Medical History Idiopathic intracranial hypertension Intractable headache Migraines Vertigo Social History Alcohol intake: former Patient Tobacco Use Status: Never used Tobacco Substance Use Type: Marijuana Physical Exam Vital Signs: Last Vital Signs Pulse 62 11/07/23 13:45 BP 116/70 11/07/23 13:45 Pulse Ox 100 11/07/23 13:45 Oxygen Delivery Method Room Air 11/07/23 13:45 BMI result Body Mass Index 31.1 Const General: healthy appearing and no acute distress Orientation/consciousness: patient oriented x3 Eyes Corneas: corneas normal Pupils: Equal, round and reactive pupils present Chest Chest palpation & inspection: no tenderness Resp Effort & Inspection: normal respiratory effort and able to speak in complete sentences GI Other: abdomen is soft with suprapubic tenderness no rebound guarding or rigidity Neuro General: patient oriented x3 Cranial nerves: Yes Equal, round and reactive pupils present Psych Appearance: grossly normal Attitude: cooperative Assessment & Plan Assessment & Plan (1) Dizziness: Code(s): R42 - Dizziness and giddiness Plan office urine dip negative for infection. We will be sending to lab for further evaluation. Patient will continue to keep her PCP appointment. Etiology of symptoms unclear at this time. Orders: Orders Complete Blood Count Auto Diff Today R53.1 - Weakness Comprehensive Met. Panel Today R10.9 - Unspecified abdominal pain Urine Culture Today R30.0 - Dysuria Coding Level of Care Code Est Pt Level 3 (17034) Diagnoses Dizziness R42
[2023-11-07 13:45] VITALS: BP 116/70; PULSE 62; O2SAT 100; BMI 31.1
== END 2023-11-07 14:25 | disposition home or self-care (01) ==
PROVIDERS: PCP Internal Medicine; Visit Provider Emergency Medicine
DX: R42 Dizziness and giddiness (principal); R30.0 Dysuria
CPT/HCPCS: 81003; 99213

== ENCOUNTER 2023-11-07 14:25 | Outpatient (REF) | payer OTHER, SELFPAY ==
[2023-11-07 16:08] LABS: MANUAL DIFF FLAG NO
[2023-11-07 16:15] LABS: Basophils Absolute Auto 0.1 X10*3/uL (0.0-0.2); Eosinophils Absolute Auto 0.1 X10*3/uL (0.0-0.4); Eosinophils Percent Auto 2.5 % (0-4); Hematocrit 40.1 % (37.0-47.0); Hemoglobin 13.3 g/dl (12.0-16.0); Imm Gran Abs Auto 0.02 X10*3/uL (0.00-0.03); Imm Gran Pct Auto 0.4 % (0.0-0.4); Lymphocytes Absolute Auto 2.5 X10*3/uL (1.2-4.9); Lymphocytes Percent Auto 47.4 % (20-40); Mean Corpuscular HGB Conc 33.2 g/dl (31.0-35.0); Mean Corpuscular Hemoglobin 32.4 pg (27.0-33.0); Mean Corpuscular Volume 97.6 fL (80.0-98.0); Mean Platelet Volume 10.8 fL (9.4-12.3); Monocytes Absolute Auto 0.5 X10*3/uL (0.1-1.2); Monocytes Percent Auto 8.9 % (2-11); Neutrophils Absolute Auto 2.1 x10*3/uL (2.0-8.3); Neutrophils Percent Auto 39.8 % (45-73); Platelet Count 250 X10*3/uL (160-400); Red Blood Count 4.11 X10*6/uL (4.20-5.50); Red Cell Distribution Width 12.6 % (11.0-16.0); White Blood Count 5.2 X10*3/uL (4.8-10.8)
[2023-11-07 16:50] LABS: Alanine Aminotransferase 7 U/L (0-31); Albumin Level 4.3 g/dL (3.5-5.0); Alkaline Phosphatase 32 U/L (39-117); Anion Gap 11 (12-20); Aspartate Amino Transferase 13 U/L (5-31); Bilirubin Total 0.4 mg/dL (0.0-1.0); Blood Urea Nitrogen 8 mg/dL (9-16); Carbon Dioxide 25 mmol/L (22-29); Chloride 106 mmol/L (96-108); Estimated Glomerular Filt Rate > 60; Glucose Random 81 mg/dL (60-115); Potassium 3.8 mmol/L (3.3-5.1); Sodium 138 mmol/L (135-145); Total Protein 7.3 g/dL (6.5-8.0)
== END 2023-11-07 14:26 | disposition home or self-care (01) ==
LOC: HO.HMGCLDS 14:25
PROVIDERS: PCP Internal Medicine; Visit Provider Emergency Medicine
DX: R53.1 Weakness (principal); R10.9 Unspecified abdominal pain; R30.0 Dysuria
CPT/HCPCS: 36415; 80053; 85025; 87086

== ENCOUNTER 2023-11-07 14:49 | Outpatient (REF) | payer OTHER, SELFPAY | END 2023-11-07 14:50 | disposition home or self-care (01) | LOC: HO.LAB 14:49 | PROVIDERS: Visit Provider Emergency Medicine | DX: Z13.89 Encounter for screening for other disorder (principal) ==

== ENCOUNTER 2024-02-05 09:06 | Day surgery (SDC) | payer OTHER, SELFPAY ==
--- NOTE | ~2024-02-05 | FL_ITS ---
FLUOROSCOPIC GUIDED LUMBAR PUNCTURE INDICATION: Idiopathic intracranial hypertension Risks and benefits and possible complications were discussed with the patient and the consent form was signed. Patient was placed prone on the fluoroscopy table. The back was prepped and draped in routine sterile fashion. Betadine was used as a skin antiseptic. Utilizing fluoroscopic guidance, the L2-3 interlaminar space was accessed with a 22 gauge Vel spinal needle and clear CSF fluid obtained. Opening pressure was 13 cm H20. 10 cc of fluid was sent for analysis. The needle was removed without immediate complications. Total fluoroscopy time: 0.2 min FL/FL guided lumbar puncture LP Impression: Successful fluoroscopic guided lumbar puncture. 10 mL of clear CSF sent for analysis. This procedure was performed by Addison Linder PA-C and supervised by Dr. Beckford.
[2024-02-05 09:50] VITALS: BMI 30.2
[2024-02-05 10:01] LABS: UPreg QC Valid YES; Urine Pregnancy NEGATIVE (NEGATIVE)
[2024-02-05 11:45] VITALS: BP 92/54; PULSE 52; RESP 16; TEMP 36.7; O2SAT 99
[2024-02-05 12:00] VITALS: BP 101/59; PULSE 58; RESP 16; O2SAT 98
[2024-02-05 12:12] LABS: CSF Appearance Clear, Colorless; CSF Tube # 1
[2024-02-05 12:15] VITALS: BP 92/66; PULSE 65; RESP 20; O2SAT 99
[2024-02-05 12:21] LABS: Glucose CSF 59 mg/dL; Total Protein CSF 28.6 mg/dL (15-45)
[2024-02-05 12:30] VITALS: BP 102/61; PULSE 65; RESP 20; O2SAT 100
[2024-02-05 12:43] LABS: Appearance CSF CLEAR; CSF Tube # 4; Color CSF COLORLESS; Red Blood Cell CSF 0 MM*3; White Blood Cell CSF 1 MM*3
[2024-02-05 12:44] LABS: Lymphocytes CSF 100 %
== END 2024-02-05 12:33 | disposition home or self-care (01) ==
PROVIDERS: Physician Assistant Surgical; PCP Internal Medicine; Visit Provider Psychiatry & Neurology Neurology
PROC: 009U3ZZ Drainage of Spinal Canal, Percutaneous Approach (ICD-10-PCS; CPT 62270; principal; 2024-02-05 11:00)
DX: G93.2 Benign intracranial hypertension (principal); G43.909 Migraine, unspecified, not intractable, without status migrainosus; F41.9 Anxiety disorder, unspecified; R42 Dizziness and giddiness; E66.9 Obesity, unspecified; Z68.29 Body mass index [BMI] 29.0-29.9, adult; Z79.899 Other long term (current) drug therapy; Z88.0 Allergy status to penicillin; Z88.5 Allergy status to narcotic agent; Z88.8 Allergy status to other drugs, medicaments and biological substances
CPT/HCPCS: 62328; 81025; 82945; 84157; 87015; 87070; 87205; 89051

== ENCOUNTER → 2024-02-05 11:00 | Outpatient (BNV) | payer OTHER, SELFPAY | PROVIDERS: PCP Internal Medicine; Visit Provider Physician Assistant Surgical | DX: G93.2 Benign intracranial hypertension (principal) | CPT/HCPCS: 62328 ==

== ENCOUNTER 2024-03-18 13:07 | Outpatient (AMB) | payer OTHER, SELFPAY ==
[2024-03-18 13:22] VITALS: BP 114/64; PULSE 66; RESP 16; O2SAT 98; BMI 28.2
--- NOTE | 2024-03-18 13:22 | MHC.OFFVIS ---
Vital Signs 03/18/24 13:22 Height 5 ft 6 in Weight 174 lb 8 oz BMI 28.2 BP 114/64 Blood Pressure Location Lt brachial Position Sitting Respiration 16 Pulse 66 Pulse Source Pulse Oximeter Pulse Oximetry (%) 98 Oxygen Delivery Method Room Air Intake Visit Reasons: INTRACTABLE MIGRAINES Allergies morphine Allergy (Intermediate, Verified 11/07/23 13:36) urticaria drospirenone [From JESSE (28)] Allergy (Unknown, Verified 11/07/23 13:36) UNKNOWN ethinyl estradiol [From JESSE (28)] Allergy (Unknown, Verified 11/07/23 13:36) UNKNOWN Penicillins [PENICILLINS] Allergy (Unknown, Verified 11/07/23 13:36) HIVES metronidazole Allergy (Verified 11/07/23 13:36) Chills HPI Comments Details: Jyotsna is a very pleasant 38-year-old female who presented to the office today for follow-up intractable headaches. She has been under the care of Neurology for migraines and pressure headaches related to idiopathic intracranial hypertension. She had a recent LP with normal opening pressure. Patient endorses nearly daily headaches, some with aura and floaters, tenderness of the scalp with most significant tenderness being over the occiput. She does endorse some midline cervical neck pain worse with range of motion. Patient has under the care of an eye doctor with frequent routine checkups. She has been trialed on multiple medications for her headaches including Topamax, sertraline, propranolol, amitriptyline, sumatriptan, naratriptan, verapamil, Fioricet, Fioricet with codeine, Depakote, gabapentin, Ajovy, Nurtec all without improvement of her symptoms. She is undergone Botox that gave her a couple days of relief but then the headaches came back with increased intensity after those couple of days. She is currently not taking any medications for her headaches. She did not feel like any of them helped. 02/12/[address] Tesfaye: Patient is a 36-year-old female with a history of IIH and migraines presenting with intractable headaches. Spinal fluid opening pressure was 41 cm in 2014, 24 cm in 2015, and 30 cm in 2021. Traditionally, she has not experienced relief of her headaches from her LP's, so she has been trialed on migraine treatments instead. 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 She has tried multiple medications for migraine treatment that have not seemed to help including Topamax, Sertraline, Propranolol, Amitriptyline, Sumatriptan, Naratriptan, verapamil, Butalbital, Depakote, Gabapentin, Fioricet, Codeine, Ajovy. Botox therapy made her headaches almost twice as worse. She was recently started Ubrogepant by Dr. Gay and [facility]. She does not recall ever trialing Diamox. She endorses occasional tinnitis and whooshing in her ears independent of her headaches. She has lost significant weight since her diagnosis but the headaches have not improved and the opening pressure continues to be elevated as of most recent LP. [facility] Medical History Idiopathic intracranial hypertension Intractable headache Migraines Vertigo Social History Alcohol intake: former Patient Tobacco Use Status: Never used Tobacco Substance Use Type: Marijuana Review of Systems Const All systems reviewed & are unremarkable except as noted in HPI and below Physical Exam Vital Signs: Last Vital Signs Pulse 66 03/18/24 13:22 Resp 16 03/18/24 13:22 BP 114/64 03/18/24 13:22 Pulse Ox 98 03/18/24 13:22 Oxygen Delivery Method Room Air 03/18/24 13:22 BMI result Body Mass Index 28.2 General: awake, alert, oriented. Answers questions appropriately. Fully engaged in examination. Skin: warm, dry, intact HEENT: Normocephalic. Hearing intact. Cardiac: External chest normal in appearance. Respiratory: No cough, audible wheezing or stridor. Abdomen: without gross distension. MS: No obvious swelling or deformities. Pain with cervical range of motion in all cummings. Minimally tender to palpation over upper and middle trapezius. Tender to palpation midline cervical vertebrae Scalp is diffusely tender all over, significantly tender over occiput. Neurological: Oriented to person, place, time and situation. Thought process intact. No gait abnormalities appreciated. Psychiatric: Appropriate mood and affect. Good judgment and insight. Neuro Cranial nerves: Yes CN's II-XII intact bilaterally Results Reviewed Results Reviewed: 02/28/24 MR/MR venography head wo/w con FINDINGS: There is normal flow-related enhancement within the superior sagittal sinus, straight sinus, both transverse sinuses and sigmoid sinuses as well as within the visualized jugular bulbs. There is flow-related enhancement within the visualized upper IJ veins bilaterally. There is no evidence for dural venous sinus occlusion or significant dural venous sinus stenosis. The left transverse sinus is nondominant compared to the right. There is visualization of the internal cerebral veins and vein of Dariel. The major cortical veins appear patent. IMPRESSION: Normal MR venography. No evidence for major dural venous sinus occlusion or significant dural venous sinus stenosis. Assessment & Plan Assessment & Plan (1) Cervicalgia: Code(s): M54.2 - Cervicalgia Category: Medical (2) Intractable headache: Code(s): R51.9 - Headache, unspecified Category: Medical (3) Idiopathic intracranial hypertension: Code(s): G93.2 - Benign intracranial hypertension Category: Medical (4) Occipital neuralgia: Code(s): M54.81 - Occipital neuralgia Category: Medical Plan X-ray cervical spine ordered for evaluation Order placed for PT eval and treat Will schedule patient for ultrasound-guided occipital nerve blocks for occipital neuralgia. If patient does not report improvement in her neck pain and headaches with physical therapy will plan for bilateral C3-C4-C5 fluoroscopy guided medial branch blocks with local anesthetic. If she reports improvement in her symptoms with the diagnostic medial branch blocks will plan for C3 MB Sprint-bilateral. Patient did not have any improvement of her symptoms with previous attempts at medications. She often reported adverse effects and states she does not tolerate medications well. She does not wish to trial new medications at this time. All questions and concerns were answered, patient agrees with the plan Follow-up after PT/injections, sooner if needed Orders: Orders PT Evaluation and Treatment Today M54.2 - Cervicalgia, S46.819A - Strain of other muscles, fascia and tendons at shoulder and upper arm level, unspecified arm, initial encounter XR cervical spine w flex/ext Today M54.2 - Cervicalgia Coding Level of Care Code Est Pt Level 3 (48180) Diagnoses Cervicalgia M54.2 Intractable headache R51.9 Idiopathic intracranial hypertension G93.2 Occipital neuralgia M54.81
== END 2024-03-18 14:08 | disposition home or self-care (01) ==
PROVIDERS: PCP Internal Medicine; Referring Provider Psychiatry & Neurology Neurology; Visit Provider Registered Nurse Emergency
DX: M54.2 Cervicalgia (principal); R51.9 Headache, unspecified; G93.2 Benign intracranial hypertension; M54.81 Occipital neuralgia
CPT/HCPCS: 99213

== ENCOUNTER → 2024-03-18 13:07 | Outpatient (BNVA) | payer OTHER, SELFPAY | PROVIDERS: PCP Internal Medicine; Referring Provider Psychiatry & Neurology Neurology; Visit Provider Registered Nurse Emergency ==

== ENCOUNTER 2024-04-10 08:04 | Outpatient (AMB) | payer OTHER, SELFPAY ==
--- NOTE | 2024-04-10 08:07 | MHC.OFFVIS ---
Vital Signs 04/10/24 08:09 Height 5 ft 6 in Weight 175 lb BMI 28.2 BP 101/53 L Blood Pressure Location Lt brachial Position Sitting Respiration 14 Pulse 69 Pulse Source Pulse Oximeter Pulse Oximetry (%) 96 Oxygen Delivery Method Room Air Intake Visit Reasons: occipital nerve blocks Allergies morphine Allergy (Intermediate, Verified 04/10/24 08:10) urticaria drospirenone [From JESSE (28)] Allergy (Unknown, Verified 04/10/24 08:10) UNKNOWN ethinyl estradiol [From JESSE (28)] Allergy (Unknown, Verified 04/10/24 08:10) UNKNOWN Penicillins [PENICILLINS] Allergy (Unknown, Verified 04/10/24 08:10) HIVES metronidazole Allergy (Verified 04/10/24 08:10) Chills Medication List - Last Reconciled 04/10/24 by Florence Beth LPN docusate sodium 100 mg PO BID fluticasone propionate 50 mcg/actuation 1 spray intranasal DAILY ondansetron 8 mg PO TID polyethylene glycol 3350 (Gavilax) grams PO HPI HPI occipital nerve blocks: Details: 38-year-old female who presents today to the office for occipital nerve blocks. Denies any recent cough, cold, infection, fever or other significant changes in medical history since last office visit.? She reports migraine and dizziness spells. She used to take medication but discontinued it. She had botox injections in the past. He is also tried new preventative agents which have not been helpful. One of them caused adverse effects leading to an ER admission. Her headaches sometimes last for two weeks. She rates her pain at 6/10 in intensity prior to injection. [facility] Medical History Idiopathic intracranial hypertension Intractable headache Migraines Vertigo Social History Alcohol intake: former Patient Tobacco Use Status: Never used Tobacco Substance Use Type: Marijuana Review of Systems Const All systems reviewed & are unremarkable except as noted in HPI and below Physical Exam Vital Signs: Last Vital Signs Pulse 69 04/10/24 08:09 Resp 14 04/10/24 08:09 BP 101/53 L 04/10/24 08:09 Pulse Ox 96 04/10/24 08:09 Oxygen Delivery Method Room Air 04/10/24 08:09 BMI result Body Mass Index 28.2 General: Appears afebrile. Alert and oriented. Mood and affect appropriate. Follows and participates in conversation appropriately. Respiratory effort is unlabored. Able to transition from sit to stand unassisted. Ambulates with bilaterally normal heel strike and toe off. Unable to extend neck without significant discomfort. Office Procedures Nerve Block Details: Greater and Lesser Occipital Nerve Block, Bilateral A physical exam was used to isolate the location of the targeted nerves. These injection sites were prepped with alcohol. Using a sterile technique, a 25 gauge 1.5-inch needle was introduced into each overlying nerve. A total of 2ml Lidocaine 4% was injected around the right greater and lesser occipital nerves in a fan-like motion.? This was then repeated on the left side. Aspirations were negative for blood, CSF, and air prior to injection at all sites. The needle was removed, the skin cleansed and a sterile bandage was applied where needed. The patient tolerated the procedure well and no complications were encountered. Following the procedure the patient's vital signs were stable.?The patient was discharged home in good condition with post-procedural instructions. Time Out: Immediately prior to the procedure, the following was verbally confirmed that there is a signed consent form and that the correct patient, planned procedure, site and side are consistent with documentation and that necessary equipment and/or blood products are available prior to the start of the case. Complications: none EBL: <5 cc. CPT: 90751-Egxlfgq Occipital Procedure code (CPT) selection complete Results Reviewed Results Reviewed: No imaging is available for review. Assessment & Plan Assessment & Plan (1) Occipital neuralgia: Code(s): M54.81 - Occipital neuralgia Category: Medical (2) Intractable headache: Code(s): R51.9 - Headache, unspecified Category: Medical Plan Patient is status post Greater and Lesser Occipital Nerve Block, Bilateral. Her pain level was improved from 6/10 to 4/10 in intensity with significant improvement in cervical range of motion following the injection. Patient tolerated procedure well and was discharged home in stable condition with discharge instructions.? All questions were answered. We will follow-up next week to repeat the injection with a longer acting local anesthetics. A follow-up appointment was made during today's visit. We will assess her responses and then decide if she needs any kind of neuromodulation treatments. Consider cervicogenic headaches amongst differentias in the future as well. Scribed for Dr. Tesfaye by Jim Cortez, medical program specialist, on 04/10/2024. I, Dr. Tesfaye, have personally reviewed and agree with the information entered by the scribe. Coding Level of Care Code Est Pt Level 3 (75453) Diagnoses Occipital neuralgia M54.81 Intractable headache R51.9 CPT Codes Nerve Block - CPT: 11242-Nvrdshr Occipital ([id number])
[2024-04-10 08:09] VITALS: BP 101/53; PULSE 69; RESP 14; O2SAT 96; BMI 28.2
== END 2024-04-10 08:59 | disposition home or self-care (01) ==
PROVIDERS: PCP Internal Medicine; Visit Provider Internal Medicine
DX: M54.81 Occipital neuralgia (principal)
CPT/HCPCS: 64405; 64450

== ENCOUNTER → 2024-04-10 08:04 | Outpatient (BNVA) | payer OTHER, SELFPAY | PROVIDERS: PCP Internal Medicine; Visit Provider Internal Medicine | DX: M54.81 Occipital neuralgia (principal); R51.9 Headache, unspecified | CPT/HCPCS: 64405; 64450 ==

== ENCOUNTER 2024-04-17 08:04 | Outpatient (AMB) | payer OTHER, SELFPAY ==
--- NOTE | 2024-04-17 08:06 | A.OFFVIS_ITS ---
Vital Signs 04/17/24 08:07 Height 5 ft 6 in Weight 176 lb BMI 28.4 BP 125/68 Blood Pressure Location Lt brachial Position Sitting Respiration 14 Pulse 73 Pulse Source Pulse Oximeter Pulse Oximetry (%) 96 Oxygen Delivery Method Room Air Intake Visit Reasons: OCCIPITAL NERVE BLOCK Allergies morphine Allergy (Intermediate, Verified 04/17/24 08:08) urticaria drospirenone [From JESSE (28)] Allergy (Unknown, Verified 04/17/24 08:08) UNKNOWN ethinyl estradiol [From JESSE (28)] Allergy (Unknown, Verified 04/17/24 08:08) UNKNOWN Penicillins [PENICILLINS] Allergy (Unknown, Verified 04/17/24 08:08) HIVES metronidazole Allergy (Verified 04/17/24 08:08) Chills Medication List - Last Reconciled 04/17/24 by Florence Beth LPN docusate sodium 100 mg PO BID fluticasone propionate 50 mcg/actuation 1 spray intranasal DAILY ondansetron 8 mg PO TID polyethylene glycol 3350 (Gavilax) grams PO HPI HPI OCCIPITAL NERVE BLOCK: Details: 38-year-old female who presents today to the office for an occipital nerve block. She had 75% relief for six days following diagnostic injection with lidocaine. She was able to comb her hair and did not have any headaches upon waking up in the morning. She is interested in repeating the injection today, with longer acting agent. Denies any recent cough, cold, infection, fever or other significant changes in medical history since last office visit.? Past procedures 04/10/24: Greater and Lesser Occipital Nerve Block, Bilateral: 75 % relief for six days. [facility] Medical History Idiopathic intracranial hypertension Intractable headache Migraines Vertigo Social History Alcohol intake: former Patient Tobacco Use Status: Never used Tobacco Substance Use Type: Marijuana Review of Systems Const All systems reviewed & are unremarkable except as noted in HPI and below Physical Exam Vital Signs: Last Vital Signs Pulse 73 04/17/24 08:07 Resp 14 04/17/24 08:07 BP 125/68 04/17/24 08:07 Pulse Ox 96 04/17/24 08:07 Oxygen Delivery Method Room Air 04/17/24 08:07 BMI result Body Mass Index 28.4 General: Appears afebrile. Alert and oriented. Mood and affect appropriate. Follows and participates in conversation appropriately. Respiratory effort is unlabored. Able to transition from sit to stand unassisted. Ambulates with bilaterally normal heel strike and toe off. Office Procedures Nerve Block Details: Greater and Lesser Occipital Nerve Block, Bilateral A physical exam was used to isolate the location of the targeted nerves. These injection sites were prepped with alcohol. Using a sterile technique, a 25 gauge 1.5-inch needle was introduced into each overlying nerve. A total of 4-5ml ropivacaine 0.5% was injected around the right greater and lesser occipital nerves in a fan-like motion.? This was then repeated on the left side. Aspirations were negative for blood, CSF, and air prior to injection at all sites. The needle was removed, the skin cleansed and a sterile bandage was applied where needed. The patient tolerated the procedure well and no complications were encountered. Following the procedure the patient's vital signs were stable.?The patient was discharged home in good condition with post-procedural instructions. Time Out: Immediately prior to the procedure, the following was verbally confirmed that there is a signed consent form and that the correct patient, planned procedure, site and side are consistent with documentation and that necessary equipment and/or blood products are available prior to the start of the case. Complications: none EBL: <5 cc. CPT: 02967-[id number] Occipital Procedure code (CPT) selection complete Results Reviewed Results Reviewed: No imaging is available for review. Assessment & Plan Assessment & Plan (1) Occipital neuralgia: Code(s): M54.81 - Occipital neuralgia Category: Medical Plan Patient is status post Greater and Lesser Occipital Nerve Blocks, Bilateral. Patient tolerated procedure well and was discharged home in stable condition with discharge instructions.? All questions were answered. We will follow-up in two weeks via telephone or in clinic to assess response to therapy. A follow-up appointment was made during today's visit. Scribed for Dr. Tesfaye by Jim Cortez, medical assembler, on 04/17/2024. I, Dr. Maxim mcgovern, have personally reviewed and agree with the information entered by the scribe. Coding Level of Care Code Procedure Only Diagnoses Occipital neuralgia M54.81 CPT Codes Nerve Block - CPT: 90541-Lvvlfwf Occipital ([id number])
[2024-04-17 08:07] VITALS: BP 125/68; PULSE 73; RESP 14; O2SAT 96; BMI 28.4
== END 2024-04-17 08:22 | disposition home or self-care (01) ==
PROVIDERS: PCP Internal Medicine; Visit Provider Internal Medicine
DX: M54.81 Occipital neuralgia (principal)
CPT/HCPCS: 64405; 64450

== ENCOUNTER → 2024-04-17 08:04 | Outpatient (BNVA) | payer OTHER, SELFPAY | PROVIDERS: PCP Internal Medicine; Visit Provider Internal Medicine | DX: M54.81 Occipital neuralgia (principal) | CPT/HCPCS: 64405; 64450; J2795 ==

== ENCOUNTER 2024-05-01 08:19 | Outpatient (AMB) | payer OTHER, SELFPAY ==
[2024-05-01 08:39] VITALS: BP 103/63; PULSE 66; RESP 16; O2SAT 96; BMI 28.3
--- NOTE | 2024-05-01 08:39 | A.OFFVIS_ITS ---
Vital Signs 05/01/24 08:39 Height 5 ft 6 in Weight 175 lb 4 oz BMI 28.3 BP 103/63 Blood Pressure Location Lt brachial Position Sitting Respiration 16 Pulse 66 Pulse Source Pulse Oximeter Pulse Oximetry (%) 96 Oxygen Delivery Method Room Air Intake Visit Reasons: s/p ONB Intake Note: Patient states she had 70% relief. Patients pain level today 3/10 Allergies morphine Allergy (Intermediate, Verified 05/01/24 08:39) urticaria drospirenone [From JESSE (28)] Allergy (Unknown, Verified 05/01/24 08:39) UNKNOWN ethinyl estradiol [From JESSE (28)] Allergy (Unknown, Verified 05/01/24 08:39) UNKNOWN Penicillins [PENICILLINS] Allergy (Unknown, Verified 05/01/24 08:39) HIVES metronidazole Allergy (Verified 05/01/24 08:39) Chills HPI HPI s/p ONB: Details: 39-year-old female who presents today for status post ONB. She reports that she is doing well overall. She continues to have 60% relief. She was able to continue with her activities like making her hair. COUNT INCLUDES THE [facility] Medical History Idiopathic intracranial hypertension Intractable headache Migraines Vertigo Social History Alcohol intake: former Patient Tobacco Use Status: Never used Tobacco Substance Use Type: Marijuana Review of Systems Const All systems reviewed & are unremarkable except as noted in HPI and below Physical Exam Vital Signs: Last Vital Signs Pulse 66 05/01/24 08:39 Resp 16 05/01/24 08:39 BP 103/63 05/01/24 08:39 Pulse Ox 96 05/01/24 08:39 Oxygen Delivery Method Room Air 05/01/24 08:39 BMI result Body Mass Index 28.3 General: Appears afebrile. Alert and oriented. Mood and affect appropriate. Follows and participates in conversation appropriately. Respiratory effort is unlabored. Able to transition from sit to stand unassisted. Ambulates with bilaterally normal heel strike and toe off. Assessment & Plan Assessment & Plan (1) Occipital neuralgia: Code(s): M54.81 - Occipital neuralgia Category: Medical Plan She will call us when her severe symptoms return and we will plan on assuming the proximal nerve blocks. She is going to follow up as needed when her symptoms become severe again for repeat occipital nerve block. Scribed for Dr. Tesfaye by Lindsay Petersen, medical policy specialist, on 05/01/2024. I, Dr. Tesfaye, have personally reviewed and agree with the information entered by the scribe Coding Level of Care Code Est Pt Level 2 (39457) Diagnoses Occipital neuralgia M54.81
== END 2024-05-01 09:05 | disposition home or self-care (01) ==
PROVIDERS: PCP Internal Medicine; Visit Provider Internal Medicine
DX: M54.81 Occipital neuralgia (principal)
CPT/HCPCS: 99212

== ENCOUNTER → 2024-05-01 08:19 | Outpatient (BNVA) | payer OTHER, SELFPAY | PROVIDERS: PCP Internal Medicine; Visit Provider Internal Medicine ==

== ENCOUNTER 2025-07-01 11:39 | Emergency (ER) | payer OTHER, SELFPAY ==
--- OUTSIDE RECORDS SUMMARY | 2006-09-04 20:00 | XMS_ITS | Continuity of Care Document ---
Author Organization [facility] Address [address] [address],[address] [place] [address] Phone Care Team Providers Care Soils Analyst Name Role Phone Eva Dobson MD Unavailable Unavailable Allergies, Adverse Reactions, Alerts Substance Reaction Status Criticality Penicillins Active No Information Medications Medication Instructions Dosage Effective Dates (start - stop) Status Comments Depo-Provera 150 mg/mL IM Syringe INJECTION 150 MG IM EVERY 12 WEEK - Active ibuprofen 600 mg Tab 1 FOUR TIMES DAILY P.R.N. - Active Advance Directives Directive Yes / No Effective Date File Name No Information Encounters Encounter Description Practice Location Reason(s) For Visit Diagnoses Date Provider Providers Copied on Encounter [facility], [address] [place] [address], [id number], tel:[phone] Converted Locations No Information 6 Olya Velasquez. [address] [place] [address], [id number], . tel:[phone] [facility], [address] [place] [address],[address], [id number], [place] tel:[phone] Converted Locations No Information 6 Z-Converted Provider. . [facility], [address] [place] [address],[address], [id number], tel:[phone] [facility] Other general counseling and advice on contraceptive management 6 Z-Converted Provider. . [facility], [address] [place] [address],[address], [place], [id number], [place] tel:[phone] [facility] Other general counseling and advice on contraceptive management Sep-2 6 No Information Travis Muniz [facility], [address], [place], [place], [id number], [place] tel:[phone] [facility] Pain in joint involving shoulder region Jul- 6 Z-Converted Provider. . Family History Family Member Type Diagnosis Age At Onset No Information Payers Payer name Insurance type Covered green party ID Authoriza tion(s) No Information Social History Type Description Quantity Date Captured Comments Sex Female Smoking Status No Information Chief Complaint And Reason For Visit No Information Reason For Referral Reason For Referral No Information History Of Present Illness Encounter Date Complaint History Of Prese nt Illness No Information Functional Status Date Functional Assessmen t No Information Instructions Date Instruction Additional Infor mation No Information Assessments Type Assessment Date No Information Patient Care Teams Name Effective Dates (start - stop) Status Members No Information
--- NOTE | ~2025-07-01 | CT_ITS ---
CLINICAL HISTORY: LLQ tenderness CT abdomen and pelvis with contrast Comparison: CT/REG/SR - CT ABDOMEN PELVIS WITHOUT IV CONTRAST - 04/02/23 12:53 EDT Findings: The lung bases are clear. Hepatomegaly. Redemonstrated lobulated low-density foci throughout the liver may reflect cysts or hemangiomas, nonspecific. No urolithiasis. No bowel obstruction, pneumoperitoneum, or pneumatosis. Left corpus luteum cysts. Small right ovarian cysts. IUD in the uterine fundus. Scattered colonic diverticulosis without diverticulitis or colitis. No evidence of appendicitis. History pelvic fluid in the cul-de-sac. No acute fracture. Mild disc bulges at L4-L5 and L5-S1. IMPRESSION: Possible ruptured ovarian cysts with trace free pelvic fluid. This document has been electronically signed by: Colton Dixon MD on 07/01/2025 18:49:50
[2025-07-01 12:03] VITALS: BP 115/60; PULSE 73; RESP 16; TEMP 36.7; O2SAT 96; BMI 34.4
--- NOTE | 2025-07-01 12:04 | ED_ITS ---
HPI - Abdominal Pain General Chief Complaint: Abdominal Pain Stated Complaint: Lower back/abd pain Time Seen by Provider: 07/01/25 14:41 Source: patient and RN notes reviewed Mode of arrival: ambulatory Limitations: no limitations History of Present Illness ED Provider: Jose Mi PA-C HPI narrative: 40-year-old female with medical history of vertigo, migraines, idiopathic intracranial hypertension presents to the ED due to 2 days of sudden onset worsening lower abdominal pain. Patient states she was getting ready for bed when she noticed a cramping sensation in her lower abdomen, has now progressed to constant dull ache in the LLQ. Patient states the pain is worsening, is unable to sleep at night due to pain, and is associated with nausea. Patient states she has history of IBS and fluctuates from constipation to diarrhea, last BM was this morning and states that it was normal for her. Patient had appointment with her PCP today who encouraged her to come to the ED for further evaluation and imaging of her abdomen. Denies fevers, chills, vomiting, black/tarry stool, urinary symptoms Related Data Home Medications ?Medication ?Instructions ?Recorded ?Confirmed docusate sodium 100 mg capsule 100 mg PO BID 03/18/24 04/17/24 fluticasone propionate 50 1 spray intranasal DAILY 12/1104/17/24 mcg/actuation nasal spray,suspension ondansetron 8 mg disintegrating 8 mg PO TID 03/18/24 0 04/17/24 tablet polyethylene glycol 3350 17 g PO 03/18/24 04/17/24 gram/dose oral powder (Gavilax) Allergies Allergy/AdvReac Type Severity Reaction Status Date / Time morphine Allergy Intermediate urticaria Verified 07/01/25 12:05 drospirenone (From [facility] (28)) Allergy Unknown UNKNOWN Verified 07/01/25 12:05 ethinyl estradiol (From [facility] Allergy Unknown UNKNOWN Verified 07/01/25 12:05 (28)) Penicillins (PENICILLINS) Allergy Unknown HIVES Verified 07/01/25 12:05 metronidazole Allergy Chills Verified 07/01/25 12:05 Review of Systems Review of Systems CONST: Negative for fever, body aches and chills. HENT: Negative for neck pain/stiffness, headache, congestion, sore throat, swelling. EYES: Negative for discharge/pain or vision changes. RESP: Negative for cough/hemoptysis and shortness of breath. CV: Negative chest pain, difficulty breathing, palpitations. ABD: Negative vomiting. POS lower abd pain, nausea : Negative increase frequency, dysuria, blood in urine or stool. MUSC: Negative for muscle aches, edema. SKIN: Negative rash, lesions/sores. NEURO: Negative headache, dizziness, weakness. Yes all other systems are reviewed and are negative PMFSH Past Medical History Medical History Idiopathic intracranial hypertension Intractable headache Migraines Vertigo Social History Social History Alcohol intake: former Patient Tobacco Use Status: Never used Tobacco Substance Use Type: Marijuana Advance Directives: No Advance Directives Information Provided: Yes Do you have a plan to hurt others: No Plan Physical Exam ED Vital Signs: Vital Signs - 24 hr 07/01/25 12:03 07/01/25 14:45 07/01/25 16:32 Temperature 98.1 F 98.1 F 98.4 F Pulse Rate 73 61 57 Respiratory Rate 16 18 14 Blood Pressure 115/60 110/65 111/59 L Pulse Oximetry 96 98 100 Oxygen Delivery Method Room Air Room Air Room Air 07/01/25 18:46 Temperature 98.2 F Pulse Rate 51 Respiratory Rate 20 Blood Pressure 95/59 L Pulse Oximetry 100 Oxygen Delivery Method Room Air BMI result Body Mass Index 34.4 GENERAL APPEARANCE: ?AxOx4, generally well-appearing, no acute distress. HEENT: ?NC, AT. MMM. EOMI, clear conjunctiva, oropharynx clear. NECK: ?Supple without lymphadenopathy.? No stiffness or restricted ROM. HEART:? Normal rate and regular rhythm, normal S1/S2, no m/r/g LUNGS:? CTAB, moving air well. No crackles or wheezes are heard. ABDOMEN: ?Soft, nondistended, no rigidity, diffusely tender to palpation, but more significant in the LLQ, negative Peralta's sign, negative rebound tenderness, no overlying skin changes BACK: No CVAT, no obvious deformity. EXTREMITIES: ?Without cyanosis, clubbing or edema. NEUROLOGICAL: ?Grossly nonfocal. Alert and oriented, moving all 4 extremities. Observed to ambulate with normal gait. Skin: ?Warm and dry without any rash. Course Course Course Narrative: This is an RME: Additional HPI, ROS, PE not included below will be deferred to primary provider. RME assessment and note performed by: Leanna Ruvalcaba PA-C This is a 35-[id number]-mcv-female who presents to the ER with complaints of abdominal cramping and tenderness x 2 days. Endorsing nausea. Unknown LMP > has mirena. No changes to bowel movements or urinary habits. Plan: Labs, UA, further ER eval needed Reevaluation(s) Reevaluation #1: DR. Harper's progress note: No abdominal pain, CT showed possible ruptured ovarian cyst. Labs were reviewed was unremarkable accept slightly elevated lipase, Will discharge to follow-up with PCP. Time: 18:53 Medical Decision Making Medical Decision Making MDM Narrative: 40-year-old female with medical history of vertigo, migraines, idiopathic intracranial hypertension presents to the ED due to 2 days of sudden onset worsening lower abdominal pain. Patient states she was getting ready for bed when she noticed a cramping sensation in her lower abdomen, has now progressed to constant dull ache in the LLQ. Patient states the pain is worsening, is unable to sleep at night due to pain, and is associated with nausea. Patient states she has history of IBS and fluctuates from constipation to diarrhea, last BM was this morning and states that it was normal for her. Patient had appointment with her PCP today who encouraged her to come to the ED for further evaluation and imaging of her abdomen. Patient denies recent travel, antibiotic use, eating contaminated food. VSS-BP 110/65, pulse rate 61 beats per minute, respiratory rate of 18, afebrile with oral temp of 98.1?, O2 saturation 98% on room air. Physical exam reveals soft abdomen, nondistended, no rigidity, diffusely tender to palpation, but more significant in the LLQ, negative Peralta's sign, negative rebound tenderness, no overlying skin changes Labs without leukocytosis, H and H stable, no evidence of electrolyte abnormality, lipase slightly elevated at 97, however no epigastric pain- less likely acute abdomen, however we will obtain CT imaging for acute abdomen due to PCP encouraging patient to come to ED for imaging. UA reveals concentrated urine, trace urine protein, trace urine ketone, 2+ leukocyte esterase, 11-20 WBCs, 2+ urine bacteria, 6-10 squamous epithelial cells- negative nitrites, no urinary symptoms less likely UTI. Serum hCG negative- less likely ectopic Patient being medicated with IV fluids, 15 mg IV Toradol, 10 mg Bentyl for abdominal cramping, 4 mg IV Zofran for nausea. Plan: CT abdomen for evaluation. Course 16:45- patient states abdominal pain has not improved after medication. Awaiting CT abdomen Differential Diagnosis Differential Diagnoses: The differential diagnosis associated with the presentation includes Ectopic Acute abdomen UTI Gastritis Colitis Admission/Observation Consideration of admission/observation: Escalation of care including admission/observation considered Lab Data MDM Lab Attestation statement: I reviewed the patient's lab results. 07/01/25 12:23 07/01/25 12:23 Labs: Lab Results 07/01/25 07/01/25 Range/Units 12:23 14:41 WBC 8.7 (4.8-10.8) X10*3/uL RBC 4.24 (4.20-5.50) X10*6/uL Hgb 13.7 (12.0-16.0) g/dl Hct 39.0 (37.0-47.0) % MCV 92.0 (80.0-98.0) fL MCH 32.3 (27.0-33.0) pg MCHC 35.1 H (31.0-35.0) g/dl RDW 13.2 (11.0-16.0) % Plt Count 251 (160-400) X10*3/uL MPV 9.5 (9.4-12.3) fL Immature Gran % (Auto) 0.3 (0.0-0.4) % Neut % (Auto) 58.3 (45-73) % Lymph % (Auto) 30.1 (20-40) % [place] % (Auto) 8.7 (2-11) % Eos % (Auto) 2.1 (0-4) % Baso % (Auto) 0.5 (0-2) % Lymph # (Auto) 2.6 (1.2-4.9) X10*3/uL [place] # (Auto) 0.8 (0.1-1.2) X10*3/uL Eos # (Auto) 0.2 (0.0-0.4) X10*3/uL Baso # (Auto) 0.0 (0.0-0.2) X10*3/uL Abs Immat Gran (auto) 0.03 (0.00-0.03) X10*3/uL Absolute Neuts (auto) 5.1 (2.0-8.3) x10*3/uL Absolute Nucleated RBC 0.000 (0.0-0.012) X10*3/uL Nucleated RBC % (auto) 0.0 (0.0-0.2) /100WBC Sodium 138 (135-145) mmol/L Potassium 3.8 (3.3-5.1) mmol/L Chloride 106 (96-108) mmol/L Carbon Dioxide 24 (22-29) mmol/L Anion Gap 12 (12-20) BUN 11 (9-16) mg/dL Creatinine 0.90 (0.5-1.4) mg/dL Estim Creat Clear Calc 85.0 Estimated GFR > 60 Random Glucose 86 (60-115) mg/dL Calcium 9.0 (8.4-10.2) mg/dL Magnesium 2.0 (1.6-2.6) mg/dL Total Bilirubin 0.3 (0.0-1.0) mg/dL Direct Bilirubin 0.1 (0.0-0.5) mg/dL AST 17 (5-31) U/L ALT 11 (0-31) U/L Alkaline Phosphatase 47 (39-117) U/L Total Protein 7.2 (6.5-8.0) g/dL Albumin 4.3 (3.5-5.0) g/dL Lipase 97 H (8-78) U/L Beta HCG, Quant < 2 mIU/mL Urine Color Dark Yellow Urine Appearance Cloudy Urine pH 5.5 (5.0-9.0) Ur Specific [place] >= 1.030 H (1.005-1.025) Urine Protein Trace (Neg-Trace) mg/dL Urine Glucose (UA) Negative (Negative) mg/dL Urine Ketones Trace (Negative) mg/dL Urine Blood Negative (Negative) Urine Nitrite Negative (Negative) Ur Leukocyte Esterase Moderate (2+) H (Negative) Urine RBC 0-2 (0-2) /HPF Urine WBC 11-20 (0-5) /HPF Ur Squamous Epith Cells 6-10 (0-2) /HPF Urine Bacteria 2+ (None Seen) Hyaline Casts 0-2 (0-2) /LPF Radiology Impression Discussion of test interpretation with radiology: I have reviewed the radiologist's reading. Radiologist Impression: CT abdomen and pelvis External Record Review External record reviewed: Inpatient record, Office record and Outpatient record Medications Administered Discontinued Medications Generic Name Dose Route Start Last Admin Trade Name Freq PRN Reason Stop Dose Admin Dicyclomine HCl 10 mg 07/01/25 15:26 07/01/25 15:47 Dicyclomine Hcl 10 Mg Capsule PO 07/01/25 15:27 10 mg ONCE ONE Administration Lactated Ringer's 1,000 mls @ 999 mls/hr 07/01/25 15:19 07/01/25 18:51 Lr IV 07/01/25 16:19 Infused .Q1H1M ONE Infusion Iohexol 100 ml 07/01/25 17:43 07/01/25 17:45 Iohexol 350 Mg/Ml 100 Ml Infus..Btl IV 07/01/25 17:44 85 ml ONCE ONE Administration Ketorolac Tromethamine 15 mg 07/01/25 15:29 07/01/25 15:47 Ketorolac Tromethamine 15 Mg/Ml Vial IVPUSH 07/01/25 15:30 15 mg ONCE ONE Administration Ondansetron HCl 4 mg 07/01/25 15:19 07/01/25 15:47 Ondansetron Hcl 4 Mg/2 Ml Vial IVPUSH 07/01/25 15:20 4 mg ONCE ONE Administration Discharge Plan Discharge Clinical Impression: Abdominal pain, Ovarian cyst rupture Patient Disposition: Home, Self-Care Instructions: Ovarian Cyst (ED) Prescriptions: No Action fluticasone propionate 50 mcg/actuation spray,suspension 1 spray intranasal DAILY polyethylene glycol 3350 [Gavilax] 17 gram/dose powder PO ondansetron 8 mg tablet,disintegrating 8 mg PO TID docusate sodium 100 mg capsule 100 mg PO BID Referrals: Laila Anand MD [Primary Care Provider, Internal Medicine] Print Language: Tajik
[2025-07-01 12:27] LABS: MANUAL DIFF FLAG NO
[2025-07-01 12:29] LABS: Hematocrit 39.0 % (37.0-47.0); Hemoglobin 13.7 g/dl (12.0-16.0); Imm Gran Abs Auto 0.03 X10*3/uL (0.00-0.03); Imm Gran Pct Auto 0.3 % (0.0-0.4); Lymphocytes Absolute Auto 2.6 X10*3/uL (1.2-4.9); Mean Corpuscular HGB Conc 35.1 g/dl (31.0-35.0); Mean Corpuscular Hemoglobin 32.3 pg (27.0-33.0); Mean Corpuscular Volume 92.0 fL (80.0-98.0); NRBC Abs Auto 0.000 X10*3/uL (0.0-0.012); NRBC Pct Auto 0.0 /100WBC (0.0-0.2); Platelet Count 251 X10*3/uL (160-400); Red Blood Count 4.24 X10*6/uL (4.20-5.50); White Blood Count 8.7 X10*3/uL (4.8-10.8)
[2025-07-01 12:52] LABS: Alanine Aminotransferase 11 U/L (0-31); Albumin Level 4.3 g/dL (3.5-5.0); Alkaline Phosphatase 47 U/L (39-117); Anion Gap 12 (12-20); Aspartate Amino Transferase 17 U/L (5-31); Blood Urea Nitrogen 11 mg/dL (9-16); Calcium 9.0 mg/dL (8.4-10.2); Carbon Dioxide 24 mmol/L (22-29); Chloride 106 mmol/L (96-108); Creatinine Clr Calc Pharmacy 85.0; Estimated Glomerular Filt Rate > 60; Lipase 97 U/L (8-78); Magnesium 2.0 mg/dL (1.6-2.6); Potassium 3.8 mmol/L (3.3-5.1); Sodium 138 mmol/L (135-145); Total Protein 7.2 g/dL (6.5-8.0)
[2025-07-01 14:45] VITALS: BP 110/65; PULSE 61; RESP 18; TEMP 36.7; O2SAT 98
[2025-07-01 14:48] LABS: Appearance Urine Cloudy; Glucose Urine UA Negative (Negative); PH 5.5 (5.0-9.0); Specific Gravity - Urine >= 1.030 (1.005-1.025); UMIC TRIGGER UACC YES
[2025-07-01 14:55] LABS: UACC Culture Trigger YES
--- OUTSIDE RECORDS SUMMARY | 2025-07-01 15:35 | XMS_ITS ---
Author Name [facility] Organization Unknown Care Team Organization Name Specialty Phone Email Start Date End Da te [facility] Antonio Becerril Primary Care 05/23/2023 [facility] Laila Anand Primary Care 01/23/2023 07/06/2024 [facility] Elaine Herr Primary Care 09/25/20222023
[2025-07-01] MEDS: Lactated Ringers 1,000 ML 999 ML IV (15:44)
[2025-07-01 16:32] VITALS: BP 111/59; PULSE 57; RESP 14; TEMP 36.9; O2SAT 100
[2025-07-01] MEDS: iohexoL 350 MG/ML 100 ML INFUS..BTL IV (17:45)
[2025-07-01 18:46] VITALS: BP 95/59; PULSE 51; RESP 20; TEMP 36.8; O2SAT 100
[2025-07-01 19:04] VITALS: BP 95/59; PULSE 51; RESP 20; TEMP 36.8; O2SAT 100
== END 2025-07-01 19:04 | disposition home or self-care (01) ==
PROVIDERS: Physician Assistant Medical; Emergency Provider Emergency Medicine; PCP Internal Medicine
DX: N83.209 Unspecified ovarian cyst, unspecified side (principal); R10.30 Lower abdominal pain, unspecified
CPT/HCPCS: 36415; 74177; 80048; 80076; 81001; 83690; 83735; 84702; 85025; 87086; 96361; 96374; 96375; 99284; J1885; J2405; J7120; Q9967

== ENCOUNTER → 2025-07-01 15:19 | Outpatient (BNV) | payer OTHER, SELFPAY | PROVIDERS: Emergency Provider Emergency Medicine; PCP Internal Medicine; Visit Provider Radiology Diagnostic Radiology | DX: N83.201 Unspecified ovarian cyst, right side (principal) | CPT/HCPCS: 74177 ==

== ENCOUNTER 2025-09-16 10:14 | Outpatient (AMB) | payer OTHER, SELFPAY ==
--- NOTE | 2025-09-16 10:17 | MHC.OFFVIS ---
Vital Signs 09/16/25 10:26 Height 5 ft 1.5 in Weight 190 lb BMI 35.3 BP 126/81 Blood Pressure Location Rt brachial Position Sitting Respiration 16 Pulse 56 Pulse Source Pulse Oximeter Pulse Oximetry (%) 95 Oxygen Delivery Method Room Air Intake Visit Reasons: Migraine [place] pt [employer] Required: No Allergies morphine Allergy (Intermediate, Verified 07/01/25 12:05) urticaria drospirenone (From [facility] (28)) Allergy (Unknown, Verified 07/01/25 12:05) UNKNOWN ethinyl estradiol (From [facility] (28)) Allergy (Unknown, Verified 07/01/25 12:05) UNKNOWN Penicillins (PENICILLINS) Allergy (Unknown, Verified 07/01/25 12:05) HIVES metronidazole Allergy (Verified 07/01/25 12:05) Chills Medication List - Last Reconciled 09/16/25 by Eva Block, CAMACHO dihydroergotamine 1 spray intranasal Q15M docusate sodium 100 mg PO BID erenumab-aooe (Aimovig Autoinjector) 140 mg subcut QMONTH fluticasone propionate 50 mcg/actuation 1 spray intranasal DAILY ondansetron 8 mg PO TID polyethylene glycol 3350 (Gavilax) grams PO HPI Comments Details: This is a 40-year-old female patient with a past medical history of obesity, migraine, and IIH with past lumbar punctures showing opening pressure of 41 in 2014 and subsequent lumbar punctures showing opening pressures of 24 in 2015. She has had normal CSF and in January of 2024 had repeat lumbar puncture with opening pressure of 13 cm. She has been trialed on topiramate which caused side effects and at time of last visit in February of 2024, had reported that her headaches are almost daily. She was started on Qulipta 10 mg daily for her headaches though she had trailed several other preventive and abortive agents in the past without success or with adverse effects. According to the patient today she has had migraine or lower level headache at least once per week lasting a day or so over the course of the last several years. She has not taken any abortive medications for migraine over the course of the last year and has kept this average frequency and duration of migraine up until recently. Her migraines are generally accompanied by light and sound sensitivity and sometimes nausea. She will from time to time also had some blurring of vision and light flashes in vision. She does not have any tinnitus or dizziness with her headaches. Her headaches are generally a pressure sensation to the bilateral temporal areas but predominantly to the right. Over the course of the last month, she developed a migraine which has been constant and daily. She has had some fluctuations in her vision including some blurriness from time to time but this is only intermittent lasting a few sec. She has severe light sensitivity and sound sensitivity and occasionally nausea. She again denies any tinnitus or dizziness. Her headache is not positional and she can not reproduce or make her headaches worse by lying down or going from a lying to a sitting position. Aside from the migraine being prolonged, the characteristics of the headache are similar to previous migraines in the past. Last eye appointment was during the summer with Ophthalmology .- stable exam She has not been taking any [id number] medications as she has felt that Tylenol and Excedrin in the past has been on helpful and ibuprofen and naproxen in the past caused upset stomach and were also not significantly beneficial to her migraines. Caffeine often helps her when she is experiencing more intermittent migraines however over the course of the last month caffeine has not been helpful. Past medication trials have included: Topiramate Sertraline Propranolol Amitriptyline Sumatriptan Naratriptan Verapamil Butalbital Venlafaxine Depakote Gabapentin Fioricet with codeine Botox Emgality [place]ovy Nurtec Qulipta Prior workup has included: MRI of the brain with and without contrast in 2014-stable LP 2023 OP of 13 LP 2021 with opening pressure of 30 LP 2015 opening pressure 24 LP 2015 opening pressure 41 PFSH Medical History Idiopathic intracranial hypertension Intractable headache Migraines Vertigo Social History Alcohol intake: former Patient Tobacco Use Status: Never used Tobacco Substance Use Type: Marijuana Review of Systems Const All systems reviewed & are unremarkable except as noted in HPI and below Physical Exam Vital Signs: Last Vital Signs Pulse 56 09/16/25 10:26 Resp 16 09/16/25 10:26 BP 126/81 09/16/25 10:26 Pulse Ox 95 09/16/25 10:26 Oxygen Delivery Method Room Air 09/16/25 10:26 BMI result Body Mass Index 35.3 Const General: cooperative, healthy appearing, comfortable and no acute distress Nutritional Appearance: well nourished Orientation/consciousness: patient oriented x3 Limitations: no limitations HEENT Head: Yes normal to inspection and Yes normocephalic Eyes General: appearance normal, both eyes and all related structures Visual Cummings: normal visual cummings by confrontation Alignment and Position: alignment normal Periorbital: periorbital findings normal Eyelids: Yes eyelids normal Conjunctivae: conjunctivae normal Sclerae: sclerae normal Direct Ophthalmoscopy: normal light reflex, no papilledema and fundi normal bilaterally Back/Spine/Pelvis Other: Left upper trapezius tightening/trigger point with mild left occipital notch tenderness. No trigger point or occipital notch tenderness on the right. Bilateral temporal tenderness/allodynia. Tenderness to the auricular temporal area bilaterally Neuro General: patient oriented x3 and deep tendon reflexes 2+ bilaterally Cranial nerves: Yes CN's II-XII intact bilaterally and Yes Facial sensation intact/muscles of mastication intact Cognition (Neuro): normal cognition Gait exam (Neuro): Normal gait present Motor exam (neuro): 5/5 motor strength present throughout and no tremor noted Sensory Exam: double simultaneous stimulation for sensation normal Romberg Test: Negative Pupils: Normal pupillary reactivity/response: bilateral Psych Appearance: grossly normal Mental Status: mental status grossly normal Speech and movement: Normal speech and movement present and Clear speech present Affect: normal affect Attitude: cooperative Thought process: Normal thought process present Thought content: Normal thought content present Insight: Good insight present (Psych) Judgement: Good judgement present (Psych) Assessment & Plan Assessment & Plan (1) Idiopathic intracranial hypertension: Code(s): G93.2 - Benign intracranial hypertension Category: Medical (2) Intractable headache: Code(s): R51.9 - Headache, unspecified Category: Medical (3) Migraine without aura and without status migrainosus, not intractable: Code(s): G43.009 - Migraine without aura, not intractable, without status migrainosus Category: Medical Plan This is a 40-year-old female patient with a past medical history of obesity, migraine, and IIH here today for headache evaluation. She is not currently being treated for IH as last lumbar puncture was reassuring in 2023. Her last eye exam was also reassuring over the summer. She is followed by Ophthalmology closely. She does also have a history of migraine and for some time her migraines were occurring once weekly. Unfortunately she has had a headache over the course of the last month constantly. This headache is similar to prior migraines aside from the duration. She does not have any positional component with her headaches or any tinnitus. She also denies dizziness. She does have some visual changes though they are intermittent. I have asked her to make an urgent eye appointment which she agrees to do as I can not fully exclude IIH though her funduscopic exam today was reassuring. I will provide her with dihydroergotamine nasal formulation as she has had a prolonged headache. She has also not responded well in the past 2 triptan which in this case would not likely work well based on the duration of her headache. I would also like to start Aimovig for preventive therapy as she has not yet tried this option. We did discuss potentially considering Botox therapy in the future. -Make urgent eye appointment -Nasal DHE -Start aimovig 140mg monthly Medications: New dihydroergotamine [id number] 2 sprays (1 mg) into each nostril (4 total sprays/2 mg) per 24 hrs OR 8 total sprays/4 mg per 7 days 1 spray intranasal Q15M 8 mL 1RF erenumab-aooe (Aimovig Autoinjector) 140 mg subcut QMONTH 1 mL 5RF Coding Level of Care Code Est Pt Level 4 (48574) Diagnoses Idiopathic intracranial hypertension G93.2 Intractable headache R51.9 Migraine without aura and without status migrainosus, not intractable G43.009
[2025-09-16 10:26] VITALS: BP 126/81; PULSE 56; RESP 16; O2SAT 95; BMI 35.3
--- OUTSIDE RECORDS SUMMARY | 2025-09-16 12:23 | XMS_ITS | Clinical Summary ---
Author Organization [facility] Address [address] [place] [address] Phone Care Team Providers Care Psychiatric Nursing Assistant Name Role Phone Laila Rosa MD Primary Care Prov ider Allergies Active Allergy Reactions Criticality Noted Date Comments Drospirenone Unknown 01/22/2024 Drospirenone-Ethinyl Estradiol 02/15/2017 pancreatitis Ethinyl Estradiol Other Low 01/22/2024 Metronidazole GI intolerance Low 06/26/2019 GI upset Morphine Hives Low 12/15/2021 Norethindrone Swelling High 01/06/2021 Facial swelling? [facility] 12/1820 Penicillins Rash Low 03/10/2013 Contact caused erythematous pruritic rash Medications fluticasone propionate (FLONASE) 50 mcg/actuation nasal spray Administer 2 sprays into affected nostril(s). 4 Active levonorgestreL (MIRENA) 21 mcg/24 hours (8 yrs) 52 mg IUD 1 Device (1 each total) by intrauterine route. Active loperamide (IMODIUM) 2 mg capsule Take 1 capsule (2 mg total) by mouth. 3 Active ondansetron (ZOFRAN) 4 mg tablet Take 1 tablet (4 mg total) by mouth every 8 (eight) hours if needed. 2 Active docusate sodium (COLACE) 100 mg capsule Take 1 capsule (100 mg total) by mouth 2 (two) times a day. 3 Active EPINEPHrine (EpiPen 2-Wayne) 0.3 mg/0.3 mL injection Inject 0.3 mL (0.3 mg total) into the thigh. 2 Active meclizine (ANTIVERT) 12.5 mg tablet Take 1 tablet (12.5 mg total) by mouth 3 (three) times a day if needed for dizziness. 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 Lopez describes years of right sided low back pain radiating to the right greater than left leg. She has pain in the buttock, posterior thigh and posterior calf but also in the medial thigh. She describes similar but less intense pain on the left side. She had physical therapy in the distant past but nothing in the last 7 years. She can't take NSAIDs because they exacerbate her IBS symptoms. She is neurologically intact. The MRI of the lumbar spine from [facility] dated Jul 22, 2025 hasn't been read yet, but there is no evidence of significant degenerative changes nor any nerve root compression. We talked about a new trial of physical therapy, acupuncture, yoga and chiropractic treatment as reasonable conservative modalities. She accepted a prescription for physical therapy but is unsure if she will go. We went over her MRI in detail and all questions were answered. She is welcome to f/u with us in the future on an as needed basis. S/P arthroscopy of right shoulder 02/19/2025 Calcific tendinitis of right shoulder 11/23/2024 LGSIL on Pap smear of cervix 04/03/2024 Overview (10/30/2024): 2023 LGSIL Colpo: GINNY 1 Repeat pap 2024 Hemorrhoids 01/22/2024 Abdominal pain 01/22/2024 Rectal bleeding 01/22/2024 Papilledema 01/22/2024 Dizziness 01/22/2024 Medical marijuana use 01/22/2024 Overview (01/22/2024): registration: [id number] exp: 02/06/24 Anxiety 02/03/2023 Acid reflux 02/03/2023 Bipolar disorder ([facility] V24, [facility] V28) 01/16 Intracranial hypertension 07/06/2021 Overview (01/22/2024): [facility] Breakthrough bleeding with IUD 01/25/2021 Perennial allergic rhinitis 01/11/2021 Perennial allergic conjunctivitis of both eyes 0 01/11/2021 Dysmenorrhea 11/30/2020 Overview (01/22/2024): Last Assessment & Plan: I explained to Jyotsna that it would be possible to consider laparoscopy to determine if she has any significant endometriosis. The treatment recommendations would generally be the same as she has already tried including hormonal methods of menstrual suppression. She was not interested in this. She was counseled that she could try Provera orally to see if it would suppress menses, vs Depo Lupron for 6 months followed by trial of POP vs removal of IUD and trial of POP, vs different combined OCP formulation vs ablation or hysterectomy. She could also try Nexplanon, but she is worried about weight gain like the Depo Provera. She was counseled she would need reliable contraception if she desires an ablation as it is not impossible, but not recommended to conceive thereafter. She was very tearful today, but denies SI, HI and did not want to decide today. She will call back with decision and schedule appt if necessary. Symptomatic anemia 10/25/2020 Overview (01/22/2024): Last Assessment & Plan: CBC and iron studies ordered. Iron supplementation prescribed. Encouraged PO hydration. Abnormal uterine bleeding (AUB) 10/25/2020 Overview (01/22/2024): Last Assessment & Plan: I discussed with Jyotsna that another option that she likely has not tried yet is use of Aygestin. Although it may be similar to other OCP and Depo, it is a different formulation and helps many women with AUB and dysmenorrhea who desire to keep their uterus. I explained it is possible that her 2 cm intacavitary fibroid is contributing to her discomfort and heavy bleeding with menses. I recommended she have a consultation with [facility] to determine if they can take it out hysteroscopically to preserve her ability to conceive in the future. She agreed. Referral placed. Discussed possible SE of Aygestin including KAMARA and breast tenderness. She was counseled these are usually self limited and she should give it at least a few weeks before discontinuing unless she experiences other more concerning side effects. She voices understanding and agrees. She is aware that Aygestin is not a form of contraception, but she does have a Mirena IUD in place that we will keep for now. She was informed that she should hear back in 1-2 weeks with an appointment date. If not, she should call back to our office and inquire on getting this arranged. She voiced understanding and agreed. IBS (irritable bowel syndrome) 05/12/2020 Adjustment disorder with mixed anxiety and depre ssed mood 12/07/2019 Radial styloid tenosynovitis 09/18/2018 Migraines 11/28/2017 Encounters Date Type Department Care Team Description 08/11/2025 11:00 AM EDT Office Visit Orthopedic Surgery [facility] [address] [place] [address] [address] [place] [address] Marimar Lea PA S/P arthroscopy of right shoulder (Primary Dx) 08/10/2025 3:18 PM EDT - 08/10/2025 11:59 PM EDT Hospital Encounter [facility] Ultrasound [address] [place] [phone] Pelvic pain; History of ovarian cyst Discharge Disposition: Home or Self Care 08/02/2025 3:00 PM EDT Office Visit Obstetrics & Gynecology - [facility] [address] [place] [phone] Huy Lewis CNM Pelvic pain (Primary Dx); History of ovarian cyst; IUD check up 07/23/2025 10:30 AM EDT Consult Neurosurgery [place] [address] [place] [phone] Justin Banks PA Chronic right-sided low back pain with right-sided sciatica (Primary Dx); Acute exacerbation of chronic low back pain; Abnormal MRI, lumbar spine 07/22/2025 5:52 PM EDT - 07/22/2025 11:59 PM EDT Hospital Encounter [facility] MRI [address] [place] [phone] Acute exacerbation of chronic low back pain; Abnormal MRI, lumbar spine Discharge Disposition: Home or Self Care 07/05/2025 Telephone Obstetrics and Gynecology [address] [phone] Huy Lewis CNM 07/02/2025 Telephone Adult Medicine [address] [phone] Laila Quintana MD 07/01/2025 10:00 AM EDT Office Visit Adult Medicine [address] [phone] Elvia Burden PA Acute exacerbation of chronic low back pain (Primary Dx); Abnormal MRI, lumbar spine; Irritable bowel syndrome with both constipation and diarrhea; Generalized abdominal pain 06/30/2025 Telephone Adult Medicine [address] [phone] Laila Quintana MD 06/28/2025 9:00 AM EDT Office Visit Adult [address] [phone] Alba Hays PA Acute exacerbation of chronic low back pain (Primary Dx); Abnormal MRI, lumbar spine 06/25/2025 Telephone Adult Medicine [address] [phone] Laila Quintana MD 06/24/2025 8:00 AM EDT Treatment [facility] [address] [phone] Felicitas Mckinney, PT S/P arthroscopy of right shoulder (Primary Dx); Calcific tendinitis of right shoulder from Last 3 Months Immunizations Immunization Administration Dates Next Due Influenza Quadravalent, MDCK , 0.5ml, with preservative (Flucelvax) 6mo and older 08/07/2018,07/29/2017 Influenza trivalent, with pr eservative (Fluzone; Afluria) 6mo and older 07/20/2014,09/01/2010 PPD Test 06/25/2018 Td Tetanus diptheria (Tdvax) 7yo and older 11/28 Tdap Tetanus diptheria acell ular pertussis (Boostrix; Adacel) 7yo and older 03/30/2011 Surgical History Surgery Date Site/Laterality Comments COLONOSCOPY PROCEDURE: HISTORICAL COLONOSCOPY PELVIC LAPAROSCOPY MYOMECTOMY ROTATOR CUFF REPAIR 02/04/2025 Right Right shoulder arthroscopy with subacromial decompression, labral debridement, and distal clavicle resection Medical History Medical History Date Comments Chlamydia when she was 20 year s old DX:Chlamydia Idiopathic intracranial hypertension DX:Idiopathic intracranial hypertension Obesity DX:Obesity Migraine DX:Migraine Papilledema DX:Papilledema Depression DX:Depression IBS (irritable bowel syndrome) D X:IBS (irritable bowel syndrome) Dizziness DX:Dizziness Abdominal pain DX:Abdominal izabel n Rectal bleeding DX:Rectal bleedi ng Vaginal bleeding DX:Vaginal blee ding Hemorrhoids DX:Hemorrhoids Intracranial hypertension 07/06/2021 DX:Int racranial hypertension; COMMENT: [facility] Anxiety state DX:Anxiety state Nausea DX:Nausea Acid reflux 02/03/2023 Family History Medical History Relation Name Comments Lung cancer Father heavy smoekr an d drinker Diabetes Maternal Grandfather Breast cancer Other mat aunt Diabetes Paternal Grandfather Allergies Son Colon cancer Neg Hx Ovarian cancer Neg Hx Pancreatic cancer Neg Hx Relation Name Status Comments Brother Alive x1 full, x1 claire f Father Alive Maternal Grandfather Alive Maternal Grandmother Alive Mother Alive Other Paternal Grandfather Alive Paternal Grandmother Alive Son Alive Social History Tobacco Use Types Packs/Day Years Used Date Smoking Tobacco: Former Cigarettes 1 3 0 11/18/2000 - 11/18/2003 Smokeless Tobacco: Never Tobacco Cessation:Counseling Given: Not Answered Comments:1 yr Alcohol Use Standard Drinks/Week Comments No 0 (1 standard drink = 0.6 oz pur e alcohol) Housing Instability Answer Date Recorde d Are you worried that in the next 2 months you may not have stable housing? No 05/26/2025 Food Access & Nutrition Answer Date Rec orded Do you have access to a vari ety of food including fruits and vegetables? Yes 05/26/2025 Health Literacy Answer Date Recorded How often do you need to hav e someone help you when you read instructions, pamphlets, or other written material from your doctor or pharmacy? Never 05/26/2025 Caregiver: How often do you need to have someone help you when you read instructions, pamphlets, or other written material from your doctor or pharmacy? Not on file 05/26/2025 Financial Risk Answer Date Recorded How hard is it for you to pa y for the very basics like food, housing, medical care, and air conditioning / heating? Not very hard 05/26/2025 Transportation Answer Date Recorded Has the lack of transportati on kept you from meetings, work, or from getting things needed for daily living? No Has the lack of transportati on kept you from medical appointments or from getting medications? No 05/26/2025 Social Isolation Answer Date Recorded How often do you feel lonely or isolated from th ose around you? Never 05/26/2025 Food Risk Answer Date Recorded Within the past 12 months we worried whether our food would run out before we got money to buy more. Never true 05/26/2025 Within the past 12 months th e food we bought just didn't last and we didn't have money to get more. Never true 05/26/2025 Dependent Care Answer Date Recorded Do you need help finding or paying for care for your loved ones. For example, school child care attendant or elderly care for an older adult? No 05/26/2025 Education Answer Date Recorded Do you think completing more education or training, like finishing a GED, going to college, or learning a trade, would be helpful for you? No 05/26/2025 Employment and Income Answer Date Recor ded During the last four weeks, have you been actively looking for work? No 05/26/2025 Living Situation Answer Date Recorded What is your living situation? Unrecognized valu e 05/26/2025 Interpersonal Safety Answer Date Record ed Physical Abuse Unrecognized value 02/04/2025 Verbal Abuse Unrecognized value 02/04/2025 Comments No Sex and Gender Information Value Date Recorded Sex Assigned at Female 02/04/2025 5:42 AM EDT Legal Sex Female 10:26 AM EST Gender Identity Female 02/04/2025 5:42 AM EDT Sexual Orientation Straight 02/04/2025 5: 42 AM EDT Obstetrics History Para Term AB IAB SAB Ectopic Multiple Livin g Live Births 1 1 1 1 1 Date Outcome GA Total Labor Labor/2nd/3rd Weight Sex Type Anes PTL Roseanna A1 A5 Name Clin 2010 Term M Vag-S pont Living Last Filed Vital Signs Vital Sign Reading Time Taken Comments Blood Pressure 126/79 08/02/2025 2:47 PM EDT Pulse 93 08/02/2025 2:47 PM EDT Temperature 36.1 C (97 F) 07/01/2025 9:59 AM EDT Respiratory Rate 16 07/01/2025 9:59 AM EDT Oxygen Saturation 95% 07/01/2025 9:59 AM EDT Inhaled Oxygen Concentration - - Weight 86.4 kg (190 lb 8 oz) 08/02/2025 2:47 PM EDT Height 156.2 cm (5' 1.5 ) 08/02/2025 2:47 PM EDT Body Mass Index 35.41 08/02/2025 2:47 PM EDT Plan of Treatment Upcoming Encounters Date Type Department Care Team (Late st Contact Info) Description 02/09/2026 3:45 PM EDT Office Visit Orthopedic Surgery - [place] [address] [place] [address] [place] [phone] Campbell Zavala MD [address] [place] [phone] Health Maintenance Due Date Last Done Comments Hepatitis B Vaccines (1 of 3 - 19+ 3-dose series) 2005 HPV Vaccines (1 - 3-dose SCDM series) 2013 Cervical Cancer Screening: Pap Smear 12/24/2024 12/24/2023, 03/24/2019, 03/24/2019 Influenza Vaccine (#1) 2025 8, 07/29/2017, 07/20/2014, Additional history exists Social Influencers of Health Screening 05/26/2026 05/26/2025, 11/25/2023 DTaP,Tdap,and Td Vaccines (3 - Td or Tdap) 11/28/2027 11/28/2017, 03/30/2011 Cholesterol Screening (Lipid Panel) 10/30/2029 10/30/2024, 11/25/2023 RSV Immunization Adult Patients (1 - 1-dose 75+ series) 2061 HIV Screening Completed 10/30/2024 Hepatitis C Screening Completed 10/30/2024 Depression Screening Completed 01/18/2025 COVID-19 Vaccine Discontinued HIB Vaccines Aged Out No longer eligi ble based on patient's age to complete this topic Hepatitis A Vaccines Aged Out No long er eligible based on patient's age to complete this topic IPV Vaccines Aged Out No longer eligi ble based on patient's age to complete this topic MMR Vaccines Aged Out No longer eligi ble based on patient's age to complete this topic Meningococcal ACWY Vaccine Aged Out N o longer eligible based on patient's age to complete this topic Meningococcal B Vaccine Aged Out No l onger eligible based on patient's age to complete this topic Pneumococcal Vaccine: Pediatrics (0 to 5 Years) and At-Risk Patients (6 to 49 Years) Aged Out No longer eligible based on patient's age to complete this topic RSV Immunization Patients Under 20 months Aged Out No longer eligible based on patient's age to complete this topic Varicella Vaccines Aged Out No longer eligible based on patient's age to complete this topic Procedures Procedure Name Priority Date/Time Associated Diagnosis Comments US PELVIS NON OB COMPLETE W TRANSVAGINAL Routine 08/10/2025 4:00 PM EDT Pelvic pain History of ovarian cyst MR LUMBAR SPINE WO CONTRAST Routine 07/22/2025 6:46 PM EDT Acute exacerbation of chronic low back pain Abnormal MRI, lumbar spine HEPATITIS C ANTIBODY Routine 10/30/2024 8:52 AM EST Screen for STD (sexually transmitted disease) HIV 1, 2 ANTIBODY, P24 ANTIGEN WITH REFLEX TO DIFFERENTIATION Routine 10/30/2024 8:52 AM EST Screen for STD (sexually transmitted disease) LIPID PANEL WITH REFLEX TO DIRECT LDL Routine 10/30/2024 8:52 AM EST Adult general medical examination PAP SMEAR Routine 12/24/2023 from Last 3 Months or Most Recently Relevant to Health Maintenance Results * US Pelvis Non OB Complete w Transvaginal (08/10/2025 4:00 PM EDT) Anatomical Region Laterality Modality Body, Pelvis Ultrasound 08/11/2025 1:14 PM EDT Impressions 08/11/2025 1:17 PM EDT Impression: 1. IUD well-positioned. 2. Normal ovaries for age. No adnexal masses. Telesparkle VIVAR ([id number]) -------- FINAL REPORT -------- Dictated By: Sofia Palomares Dictated Date: 08/11/2025 13:14 ET Assigned Physician: Sofia Palomares Reviewed and Electronically Signed By: Sofia Palomares Signed Date: 08/11/2025 13:17 ET Workstation ID: [id number] Transcribed By: Self Edit Transcribed Date: 08/11/2025 13:14 ET Narrative 08/11/2025 1:17 PM EDT History: 40-year-old 1 para 1, LMP 08/08/25, with ovarian cyst demonstrated on recent outside abdominal CT. Comparison: CT abdomen/pelvis 07/01/25 [facility], [place], [place] ; CT abdomen/pelvis 08/10/22 ([facility]) Findings: Transvesical imaging of the pelvis is supplemented with transvaginal imaging for better detail of the uterus and adnexa. The uterus is normal in size and configuration, measuring 7.3 cm in length by 3.9 cm in depth by 4.2 cm in width. The endometrial echo complex measures 6 mm in thickness double layer. A metallic foreign body is seen within the endometrial cavity, consistent with a well-positioned IUD. The myometrium is homogeneous. There is no free fluid in the cul-de-sac. The right ovary is normal, measuring 2.6 x 1.0 x 1.1 cm, with normal vascular flow by Doppler analysis. The left ovary measures 3.8 x 1.7 x 2.2 cm and contains a few subcentimeter follicles, normal for age. There is normal vascular flow within the ovary by Doppler analysis. The ovarian cysts noted on the outside CT are no longer seen and most likely represented physiologic structures. No adnexal masses are seen. Procedure Note Sofia Palomares MD - 08/11/2025 History: 40-year-old 1 para 1, LMP 08/08/25, with ovarian cystdemonstrated on recent outside abdominal CT. Comparison: CT abdomen/pelvis 07/01/25 [place], [place] ; CT abdomen/pelvis 08/10/22 ([facility]) Findings: Transvesical imaging of the pelvis is supplemented with transvaginalimaging for better detail of the uterus and adnexa. The uterus is normal in size and configuration, measuring 7.3 cm in lengthby 3.9 cm in depth by 4.2 cm in width. The endometrial echo complexmeasures 6 mm in thickness double layer. A metallic foreign body is seenwithin the endometrial cavity, consistent with a well-positioned IUD. Themyometrium is homogeneous. There is no free fluid in the cul-de-sac. The right ovary is normal, measuring 2.6 x 1.0 x 1.1 cm, with normalvascular flow by Doppler analysis. The left ovary measures 3.8 x 1.7 x 2.2cm and contains a few subcentimeter follicles, normal for age. There isnormal vascular flow within the ovary by Doppler analysis. The ovarian cysts noted on the outside CT are no longer seen and mostlikely represented physiologic structures. No adnexal masses are seen. IMPRESSION: Impression: 1. IUD well-positioned. 2. Normal ovaries for age. No adnexal masses. Telesparkle VIVAR ([id number]) -------- FINAL REPORT -------- Dictated By: Sofia Palomares Dictated Date: 08/11/2025 13:14 ET Assigned Physician: Sofia Palomares Reviewed and Electronically Signed By: Sofia Palomares Signed Date: 08/11/2025 13:17 ET Workstation ID: [id number] Transcribed By: Self Edit Transcribed Date: 08/11/2025 13:14 ET us Huy Lewis CNM IM US PROCEDURES Final Resul t * MR Lumbar Spine wo Contrast (07/22/2025 6:46 PM EDT) Anatomical Region Laterality Modality L-spine, Spine Magnetic Resonan ce 07/26/2025 2:33 PM EDT Impressions 07/26/2025 3:07 PM EDT Mild degenerative disc changes at L5-S1, similar compared to 2020. No focal disc protrusion, foraminal stenosis, or spinal canal stenosis. -------- FINAL REPORT -------- Dictated By: GEREMIAS DAVE Dictated Date: 07/26/2025 14:33 ET Assigned Physician: GEREMIAS DAVE Reviewed and Electronically Signed By: GEREMIAS DAVE Signed Date: 07/26/2025 15:07 ET Workstation ID: [id number] Transcribed By: Self Edit Transcribed Date: 07/26/2025 14:33 ET Narrative 07/26/2025 3:07 PM EDT PROCEDURE: Lumbar spine MRI INDICATION: Pain TECHNIQUE: Multiplanar, multisequence MRI of the Lumbar spine Without contrast. COMPARISON: 07/29/2021. FINDINGS: Slight levoconvex lumbar curvature. Lumbar lordosis is maintained. No fracture or suspicious marrow replacing lesion. Mild degenerative loss of normal disc height and signal at L5-S1, similar compared to prior. Lumbar facet joints are within normal limits. Conus medullaris is normal and terminates at L1. No epidural collection or mass is seen within the spinal canal. Paraspinal muscles are within normal limits. Visualized intra-abdominal and pelvic structures are normal Findings by level: L1-2: No focal disc protrusion, facet arthropathy, foraminal stenosis, or spinal canal stenosis. L2-3: No focal disc protrusion, facet arthropathy, foraminal stenosis, or spinal canal stenosis. L3-4: No focal disc protrusion, facet arthropathy, foraminal stenosis, or spinal canal stenosis. L4-5: No focal disc protrusion, facet arthropathy, foraminal stenosis, or spinal canal stenosis. L5-S1: Small central annular tear is unchanged. No focal disc protrusion, facet arthropathy, foraminal stenosis, or spinal canal stenosis. Procedure Note Geremias Dave MD - 07/26/2025 PROCEDURE: Lumbar spine MRI INDICATION: Pain TECHNIQUE: Multiplanar, multisequence MRI of the Lumbar spine Withoutcontrast. COMPARISON: 07/29/2021. FINDINGS: Slight levoconvex lumbar curvature. Lumbar lordosis is maintained. No fracture or suspicious marrow replacing lesion. Mild degenerative loss of normal disc height and signal at L5-S1, similarcompared to prior. Lumbar facet joints are within normal limits. Conus medullaris is normal and terminates at L1. No epidural collectionor mass is seen within the spinal canal. Paraspinal muscles are within normal limits. Visualized intra-abdominaland pelvic structures are normal Findings by level: L1-2: No focal disc protrusion, facet arthropathy, foraminal stenosis, orspinal canal stenosis. L2-3: No focal disc protrusion, facet arthropathy, foraminal stenosis, orspinal canal stenosis. L3-4: No focal disc protrusion, facet arthropathy, foraminal stenosis, orspinal canal stenosis. L4-5: No focal disc protrusion, facet arthropathy, foraminal stenosis, orspinal canal stenosis. L5-S1: Small central annular tear is unchanged. No focal disc protrusion,facet arthropathy, foraminal stenosis, or spinal canal stenosis. IMPRESSION: Mild degenerative disc changes at L5-S1, similar compared to 202. Nofocal disc protrusion, foraminal stenosis, or spinal canal stenosis. -------- FINAL REPORT -------- Dictated By: GEREMIAS DAVE Dictated Date: 07/26/2025 14:33 ET Assigned Physician: GEREMIAS DAVE Reviewed and Electronically Signed By: GEREMIAS DAVE Signed Date: 07/26/2025 15:07 ET Workstation ID: [id number] Transcribed By: Self Edit Transcribed Date: 07/26/2025 14:33 ET Alba VIVAR [facility] PROCEDURES Final Result * Hepatitis C antibody (10/30/2024 8:52 AM EST) [facility] Hepatitis C Antibody Negative Negative LAB CHEMISTRY METHOD 10/30/2024 1:57 PM EST [facility] Blood Venous blood specimen / Unknown Venipuncture / Unknown 10/30/2024 8:52 AM EST 10/30/2024 8:52 AM EST Elvia VIVAR LAB BLOOD ORDERABLES Final Resul t Performing Organization Address [facility]/ZIP Co de Phone Number [facility] [address] [place] [address], [place] [phone] * HIV 1,2 antibody, p24 antigen with reflex to differentiation (10/30/2024 8:52 AM EST) [facility] HIV Combo AB/AG Negative Negative LAB CHEMISTRY METHOD 10/30/2024 1:57 PM EST [facility] Blood Venous blood specimen / Unknown Venipuncture / Unknown 10/30/2024 8:52 AM EST 10/30/2024 8:52 AM EST Narrative [facility] - 10/30/2024 1:57 PM EST This assay is a 4th generation assay allowing for earlier detection of HIV infection by detecting the presence of the HIV-1 p24 antigen as well as the traditional antibodies to HIV type 1 (including group O) and type 2. Use of a 4th generation assay is the current CDC recommendation for HIV screening. us Elvia VIVAR LAB BLOOD ORDERABLES Final Resul t Performing Organization Address [facility] de Phone Number [facility] [address] [place] [address], [place] [phone] * (ABNORMAL) Lipid panel with reflex to direct LDL (10/30/2024 8:52 AM EST) [facility] Cholesterol 200 0 - 200 mg/dL LAB CHEMISTRY METHOD 10/30/2024 1:34 PM EST [facility] Triglycerides 71 0 - 150 mg/dL LAB CHEMISTRY METHOD 10/30/2024 1:34 PM EST [facility] HDL 64 >=40 mg/dL LAB CHEMISTRY METHOD 10/30/2024 1:34 PM EST [facility] LDL Calculated 122(H) 0 - 100 mg/dL LAB CHEMISTRY METHOD 10/30/2024 1:34 PM [facility] VLDL Cholesterol Rupesh 14.2 mg/dL LAB CHEMISTRY METHOD 10/30/2024 1:34 PM EST [facility] Non HDL Chol. (LDL+VLDL) 136 <145 mg/dL LAB CHEMISTRY METHOD 10/30/2024 1:34 PM [facility] Chol/HDL Ratio 3.1 0.0 - 4.4 LAB CHEMISTRY METHOD 10/30/2024 1:34 PM [facility] Blood Venous blood specimen / Unknown Venipuncture / Unknown 10/30/2024 8:52 AM EST 10/30/2024 8:52 AM EST us Elvia VIVAR LAB BLOOD ORDERABLES Final Resul t [facility] [address] [place] [address], * Pap smear (12/24/2023) 12/24/2023 Narrative HISTORICAL TESTING LAB RESULTING AGENCY - 02/20/2024 11:40 AM EDT [id number] THINPREP PAP, IMAGED: LOW-GRADE SQUAMOUS INTRAEPITHELIAL LESION (LSIL) . TRICHOMONAS VAGINALIS IS PRESENT. ABUNDANT BLOOD. VANESSA THRASHER M.D. , PATHOLOGIST (CASE ELECTRONICALLY SIGNED 01 02 2024) RESULT OF APTIMA HIGH RISK HPV ASSAY: HIGH RISK HPV: POSITIVE (SEROTYPES 16,18,31,33,35,39,45,51,52,56,58,59,66,68) RESULTS OF APTIMA HPV 16 AND 18/45 GENOTYPE ASSAY: HPV 16: NEGATIVE HPV 18/45: POSITIVE COMPLETED ON 2023-12-30 ADEQUACY: SATISFACTORY ENDOCERVICAL/TRANSFORMATION ZONE COMPONENT PRESENT. SOURCE: THINPREP PAP HPV ANY DX: REFLEX 16 AND 18, CERVICAL, IMAGED CLINICAL INFORMATION: Z12.4, HPV ANY DIAGNOSIS. PAP HX: NEGATIVE, NO LMP RECORDED, IUD UNCERTAIN DATE. us Jana VIVAR LAB CYTOLOGY ORDERABLES Concepcion gutiérrez Result HISTORICAL TESTING LAB RESULTING AGENCY from Last 3 Months or Most Recently Relevant to [place] [phone] [facility] Advance Directives * Full Code - Default (Latest Code Status on File) Date Activated Date Inactivated Comments 02/04/2025 5:58 AM 02/04/2025 1:45 PM This is orde r is used when code status has not been discussed with the patient, or code status is otherwise unknown/unconfirmed To update the patient's code status, place a code status order. Do not modify or discontinue any currently active code status orders. Care Teams Psychiatric Nursing Assistant Relationship Specialty Start Date End Date Laila Rosa MD [address] [place] [phone] PCP - General Internal Medicine 08/10/22
--- OUTSIDE RECORDS SUMMARY | 2025-09-16 12:23 | XMS_ITS | Data Portability ---
Author Organization [facility], [address] Address [address] [place] [address] Assessment No assessment recorded. Plan of Treatment Reminders Order Date Submit Date Provider Last Modified By Organization Details Last Modified Time Details Appointments None recorded. Lab culture, urine 2022 023 [facility], [address] [place] [address], [place], [address], 3 06:07:39 test, urine 2022 [facility]23 [facility], [address] [place] [address], [phone], 3 13:50:57 urinalysis, dipstick 2022 023 [facility], [address] [place] [address], [phone], 3 13:50:57 Referral emergency medicine referral - Lower abdominal pain, tender on RLQ x 3 days. complex history including ovarian cyst, diarrhea and currently running UTI. need further evaluation and treatment. 2022 023 [email or web address] 26 [facility] [address] [place] [address], [address], 3 09:09:13 Procedures None recorded. Surgeries None recorded. Imaging None recorded. Medication Orders cephalexin 500 mg tablet 2022 023 [id number], [address] [place] [address], [address], 13:51:45 Patient TargetsNo targets recorded. Patient Instructions Encounter Date Encounter Id Patient Instructions Last Modified By Organization Details Last Modified Time 02/03/2023 [id number] Female Urinary Tract Infection (UTI): Care Instructions [email or web address] Not available 02/03/2023 13:51:42 Abdominal pain c an have a wide variety of causes. we cannot totally exclude the possibility of your symptoms being due a serious underlying problem. Unless ALL of your symptoms have COMPLETELY resolved, you should follow up at the nearest Emergency Department in 6 hours to be rechecked. If your pain worsens, you should not hesitate to go to the Emergency Department to have your condition further evaluated. You should also follow up immediately if you develop any new symptoms which concern you, such as fever, nausea, vomiting, rectal bleeding, or any other symptom that concerns you. Failure to follow up as instructed above may result in serious adverse health consequences, including permanent disability or . Not available 02/03/2023 13:51:16 We recommend you get a repeat urinalysis in 2 weeks to ensure that any abnormalities have resolved. If urine abnormalities persist, you will likely need further testing or treatment. We will contact you within 3 to 5 days with the results of your lab test. If you have not heard back from us within that time frame, please feel free to contact our office regarding your results. Go to the Emergency Department immediately if your symptoms worsen or if you develop new symptoms that concern you. Drink plenty of fluids You should follow-up with your PCP in 4-5 days, or at any time if your condition does not improve or worsens. Any acute change should prompt a visit to the nearest Emergency Department. Not available 02/03/2023 13:51:05 Reason for Referral Emergency Medicine Referral for Abdominal pain Lower abdominal pain, tender on RLQ x 3 days. complex history including ovarian cyst, diarrhea and c Lower abdominal pain, tender on RLQ x 3 days. complex history including ovarian cyst, diarrhea and currently running UTI. need further evaluation and treatment. Referring Physician: [place] Mitchell, Urgent Care, Encounter Date: 02/03/2023 Results Created Date Observation Date Name Description Value Unit Range Abnormal Flag Note LastModifiedBy Organization Detail LastModifiedTime 02/04/20 23 02/05/2023 URINE CULTU RE, SHERWINI NE urine culture, routine FINAL REPORT Not Available [facility]) [address] [facility], [place], [address], 02/05/2023 06:07:39 02/04/20 23 02/05/2023 URINE CULTU RE, ROUTI NE result 1 NO GROWTH Not Available [facility] ([facility]) [address] [facility], [place], [address], 02/05/2023 06:07:39 02/04/20 23 02/03/2023 urina lysis , dipst ick Unknown Analyte Normal = light yellow Not Available [address]99[address] aranda [address] [place], [address], 02/03/2023 12:18:11 02/04/20 23 02/03/2023 urina lysis , dipst ick Unknown Analyte Normal = clear Not Available [facility] [address], [place], [address], 02/03/2023 12:18:11 02/04/20 23 02/03/2023 urina lysis , dipst ick Unknown Analyte Normal = negati ve Not Available [address], [place], [address], 02/03/2023 12:18:11 02/04/20 23 02/03/2023 urina lysis , dipst ick Unknown Analyte Normal = Negati ve Not Available [address] [place] [address], [place], [address], 02/03/2023 12:18:11 02/04/20 23 02/03/2023 urina lysis , dipst ick Unknown Analyte Normal = Negati ve Not Available [facility] [address], [place], [address], 02/03/2023 12:18:11 02/04/20 23 02/03/2023 urina lysis , dipst ick Unknown Analyte Normal = 1.010, 1.015, 1.020 Not Available [address] aranda [address], [place], [address], 02/03/2023 12:18:11 02/04/20 23 02/03/2023 urina lysis , dipst ick Unknown Analyte Normal = Negati ve Not Available [facility] [address], [place], [address], 02/03/2023 12:18:11 02/04/20 23 02/03/2023 urina lysis , dipst ick Unknown Analyte Normal = 6.5, 7.0, 7.5, 8.0 Not Available [facility] [address], [place], [address], 02/03/2023 12:18:11 02/04/20 23 02/03/2023 urina lysis , dipst ick Unknown Analyte Normal = Negati ve Not Available [address] aranda [address], [place], [address], 02/03/2023 12:18:11 02/04/20 23 02/03/2023 urina lysis , dipst ick Unknown Analyte Normal = 0.2, 1.0 Not Available [facility] [address], [place], [address], 02/03/2023 12:18:11 02/04/20 23 02/03/2023 urina lysis , dipst ick Unknown Analyte Normal = Negati ve Not Available [facility] [address], [place], [address], 02/03/2023 12:18:11 02/04/20 23 02/03/2023 urina lysis , dipst ick Unknown Analyte Normal = Negati ve Not Available chadwick aranda [address], [place], [address], 02/03/2023 12:18:11 02/04/20 23 02/03/2023 urina lysis , dipst ick Unknown Analyte Yellow Not Available anupama [address], [place], [address], 02/03/2023 12:18:11 02/04/20 23 02/03/2023 urina lysis , dipst ick Unknown Analyte Clear Not Available anupama [address], [place], [address], 02/03/2023 12:18:11 02/04/20 23 02/03/2023 urina lysis , dipst ick Unknown Analyte Negati ve Not Available chadwick aranda [address], [place], [address], 02/03/2023 12:18:11 02/04/2002/03/2023 urina lysis , dipst ick Unknown Analyte Small Not Available anupama [address], [place], [address], 02/03/2023 12:18:11 02/04/20 23 02/03/2023 urina lysis , dipst ick Unknown Analyte Negati ve Not Available chadwick aranda [address], [place], [address], 02/03/2023 12:18:11 02/04/20 23 02/03/2023 urina lysis , dipst ick Unknown Analyte 1.030 Not Available anupama [address], [place], [place], [address], 02/03/2023 12:18:11 02/04/20 23 02/03/2023 urina lysis , dipst ick Unknown Analyte Small Not Available anupama [address], [place], [address], 02/03/2023 12:18:11 02/04/20 23 02/03/2023 urina lysis , dipst ick Unknown Analyte 5.5 Not Available anupama [address], [place], [address], 02/03/2023 12:18:11 02/04/20 23 02/03/2023 urina lysis , dipst ick Unknown Analyte Negati ve Not Available chadwick aranda [address], [place], [address], 02/03/2023 12:18:11 02/04/20 23 02/03/2023 urina lysis , dipst ick Unknown Analyte 0.2 E.U./d L Not Available chadwick aranda [address], [place], [place], [address], 02/03/2023 12:18:11 02/04/20 23 02/03/2023 urina lysis , dipst ick Unknown Analyte Negati ve Not Available chadwick aranda [address], [place], [place], [address], 02/03/2023 12:18:11 02/04/20 23 02/03/2023 urina lysis , dipst ick Unknown Analyte Trace Not Available [address], [place], [place], [address], 02/03/2023 12:18:11 02/04/20 23 02/03/2023 pregn abi test, urine Unknown Analyte Normal = Negati ve Not Available chadwick aranda [address], [place], [address], 02/03/2023 12:18:03 02/04/20 23 02/03/2023 pregn abi test, urine Unknown Analyte negati ve Not Available [address] [place] [address], [place], [address], 02/03/2023 12:18:03 Result Notes None recorded. Problems Name Problem SNOMED Code Status Onset Date Resolution Date Notes Provider Name and Address Organization Details Recorded Time Migraine 90908210 Active 023 IRIS COUVERTIE R null, PA - [facility] 3 11:59:43 Irritable bowel syndrome 25145057 Active 023 IRIS COUVERTIE R null, PA - [facility] 3 11:59:49 Acid reflux 528745202 Active 023 IRIS COUVERTIE R null, PA - [facility] 3 12:00:07 Anxiety 21695169 Active 023 IRIS COUVERTIE R null, PA - [facility] 3 12:00:25 Bipolar disorder 13299627 Active 023 IRIS COUVERTIE R null, PA - [facility] 3 12:00:35 Problem Notes None recorded. Medical Equipment None Reported. Allergies Allergen ID Allergen Name Allergen Category Reaction Reaction Severity Criticality Documentation Date Start Date Code Code System Note Provider Name and Address Organization Details Recorded Time 307343 Product containin g penicilli n (product) medicatio n rash Not available Not available 02/03/2023 49077 8001 SNOMED IRIS COUVERTIE R null, PA - [facility] 3 11:56:12 790260 morphine medicatio n rash Not available Not available 02/03/2023 7052 RxNorm IRIS COUVERTIE R null, PA - [facility] 3 11:56:31 Medications Name Sig Start Date Stop Date Status Note LastModified by Organization Details LastModified Time cyclobenzap rine 10 mg tablet TAKE 1 TABLET BY MOUTH 2 TIMES DAILY NEEDED FOR MUSCLE SPASMS FOR UP TO 10 DAYS. 02/03 completed Not Available Not Available Not Available nabumetone 750 mg tablet TAKE 1 TABLET BY MOUTH TWICE A DAY FOR 10 DAYS 02/03 completed Not Available Not Available Not Available loperamide 2 mg capsule TAKE 1 CAPSULE BY MOUTH 4 TIMES DAILY NEEDED FOR DIARRHEA. active Not Available Not Available No t Available cetirizine 10 mg tablet TAKE 1 TABLET BY MOUTH EVERY DAY active Not Available Not Available No t Available acetazolami de ER 500 mg capsule,ext ended release TAKE 1 CAPSULE BY MOUTH TWICE A DAY FOR 30 DAYS active Not Available Not Available No t Available ondansetron HCl 4 mg tablet TAKE 1 TABLET BY MOUTH EVERY 8 HOURS NEEDED FOR NAUSEA active Not Available Not Available No t Available prednisone 20 mg tablet TAKE 2 TABLETS BY MOUTH EVERY DAY FOR 5 DAYS 02/03 completed Not Available Not Available Not Available butalbital- acetaminoph en-caffeine 50 mg-325 mg-40 mg tablet TAKE 1-2 TABLETS BY MOUTH DAILY NEEDED FOR HEADACHE FOR 30 DAYS active Not Available Not Available No t Available ondansetron 8 mg disintegrat ing tablet TAKE 1 TABLET BY MOUTH EVERY 8 HOURS NEEDED FOR NAUSEA 02/03 completed Not Available Not Available Not Available pantoprazol e 40 mg tablet,debra yed release TAKE 1 TABLET BY MOUTH EVERY DAY NEEDED FOR HEARTBURN active Not Available Not Available No t Available docusate sodium 100 mg capsule TAKE 1 CAPSULE BY MOUTH TWICE A DAY FOR 7 DAYS NEEDED CONSTIPAT ION active Not Available Not Available No t Available cephalexin 500 mg tablet Take 1 tablet every 8 hours by oral route with meals for 7 days. 2022 active Not Available Not Available Not Avai lable guanfacine ER 1 mg tablet,exte nded release 24 hr TAKE 1 TABLET BY MOUTH EVERY DAY IN THE MORNING 02/03 completed Not Available Not Available Not Available Rexulti 0.25 mg tablet TAKE 1/2 TABLET BY MOUTH TWICE A DAY active Not Available Not Available No t Available QuickVue At-Home COVID-19 Test kit USE ACCORDING TO MANUFACTU RER'S DIRECTION S 02/03 completed Not Available Not Available Not Available Vitals Date Recorded Body height Body mass index (BMI) Body weight Oxygen saturation Oxygen saturation in Arterial blood by Pulse oximetry Heart rate Respiratory rate Body temperature Systolic And Diastolic Provider Name and Address Organization Details Last Updated DateTime 3 154.94 cm 28.3 kg/m2 72614.8 6 g 99 % 99 % 60 /min 18 /min 98 [degF] 107/71 mm[Hg] ALICIA Barbour PA - [facility] 3 12:03:09 Social History Question Answer Notes LastModified by Organizat ion Details LastModified Time Tobacco Smoking Status Former Smoker ALICIA menezes PA - [facility] 02/03/2023 12:00:54 What Is Your Water Source? City Information not available 02/03/2023 What Is Your Heat Source? Other Information not available 02/03/2023 Have You Had Direct Contact, Or Contact During Intimacy, With Monkeypox Rash, Scabs, Or Body Fluids From A Person With Monkeypox? No Information not available 02/03/2023 Have You Recently Traveled Abroad? No Information not available 02/03/2023 Sex: Unknown Functional Status Question Answer Note LastModified by Organizat ion Details LastModified Time Do you use any illicit or recreational drugs? No Information not available 02/03/2023 Do you or have you ever used any other forms of tobacco or nicotine? No Information not available 02/03/2023 What is your level of alcohol consumption? None Information not available 02/03/2023 Mental Status None recorded. Family History Relationship Description Onset Age of this Age Resolved Age Notes LastModified by Organization Details LastModified Time Father No current problems or disability Not available 12:00:18 Mother No current problems or disability Not available 12:00:18 Medical History No medical history recorded. Gynecological HistoryNo gynecological history recorded. Obstetrics History GPAL:G 0 P 0 0 0 0 Past Encounters Encounter ID Performer Location Encounter Start Date Encounter Closed Date Diagnosis/Indication Diagnosis SNOMED-CT Code Diagnosis ICD10 Code Diagnosis IMO Codes Diagnosis Note [id number] [address] [facility] [address] [place] [address] 01/29/2019 14:12:38 01/29/2019 16:44:[id number] [place] [address] 12/21/2021 14:29:33 12/21/2021 15:44:59 [id number] [address] [place] [address] 10/07/2020 14:17:11 10/07/2020 16:55:44 [id number] [address] [place] [address] 01/25/2020 08:54:04 01/25/2020 09:25:20 [id number] [address] [place] [address] 12/03/2020 11:41:09 12/03/2020 16:27:52 [id number] [address] [place] [address] 06/15/2021 14:45:56 06/15/2021 16:53:34 [id number] [address] [place] [address] 03/13/2021 14:59:08 03/13/2021 17:13:32 [id number] [address] [place] [address] 09/23/2018 17:36:28 09/23/2018 18:31:19 [id number] [address] [place] [address] 04/06/2020 14:20:56 04/06/2020 15:02:58 [id number] [address] [place] [address] 05/07/2022 09:11:28 05/07/2022 11:24:46 [id number] [place] [address] [place] [address] 02/03/2023 11:42:44 02/03/2023 14:01:56 Abdominal pain 53080335 R10.9 Urinary tr act infectious disease 82710098 N39.0 Health Concerns Section Related Observation LastModified by Organization Detai ls LastModified Time None Recorded Concern Status LastModified by Organization Details LastModified Time None Recorded Advance Directives Directive None Recorded Payers Insurance Date Sequence Insurance Name Policy Number Policy Joy Covered Member ID Joy Member ID Guarantor Name 02/03/[address] [place] [address] ([facility]) [id number] Jyotsna Elizabeth [id number] Jyotsna Elizabeth Notes Date Note Type Note Provider Name and Address Organization Details Recorded Time 02/03/2023 text/html Abdominal Pain UCReported by PatientAbdominal PainFor source of patient information, patient reports__,patient arrived at urgent care ambulatory, andlearning styles: auditory. For onset/timing, patient reportsbetter. For context, patient reportsno travel. For associated symptoms, patient reportsno fever,no chills,no blood in the urine,no heartburn,no shortness of breath, andno change in bowel/bladder habits. For other, patient reportsdenies possible . Anderson Mitchell NP [address] [place], [address], [place] - [facility] 02/03/2023 13:56:05 OBGyn Episode No OBEpisode recorded.
== END 2025-09-16 11:08 | disposition home or self-care (01) ==
LOC: HO.HSM 10:15
PROVIDERS: PCP Internal Medicine; Visit Provider Nurse Practitioner
DX: G93.2 Benign intracranial hypertension (principal); R51.9 Headache, unspecified; G43.009 Migraine without aura, not intractable, without status migrainosus
CPT/HCPCS: 99214